=== PATIENT | female | born 1965 | race Caucasian/White ===

== ENCOUNTER 2017-10-15 21:32 | Emergency (ER) | payer MEDICAID ==
[~2017-10-15] VITALS: Ht 165.1 cm; Wt 142.8 kg
[~2017-10-15 21:32] MED LIST: ACYC400T PO; AZIT500T5 PO; FLUT16SP26 BOTHNARES; IBUP-1984 PO; LORA-835 PO; LORA1TAB PO; METH-360 PO; MIRT15TA3 PO; NAPR500T6 PO
[2017-10-15 21:39] VITALS: BP 150/87
[2017-10-15] MEDS ORDERED: proparacaine 0.5% ophthalmic drops 15ml RIGHTEYE ONE (22:45)
== END 2017-10-15 23:30 | disposition home or self-care (01) ==
LOC: ER 21:33
DX: H10.11 Acute atopic conjunctivitis, right eye (principal); I25.10 Atherosclerotic heart disease of native coronary artery without angina pectoris; G62.9 Polyneuropathy, unspecified; Z86.73 Personal history of transient ischemic attack (TIA), and cerebral infarction without residual deficits; Z88.0 Allergy status to penicillin; Z88.6 Allergy status to analgesic agent
CPT/HCPCS: 99282

== ENCOUNTER 2017-12-12 20:23 | Emergency (ER) | payer MEDICAID ==
[~2017-12-12] VITALS: Ht 165.1 cm; Wt 143.0 kg
[2017-12-12 21:18] LABS: CLARITY,URINE CLOUDY (Clear); COLOR,URINE YELLOW (Yellow); GLUCOSE, URINE NEGATIVE (Neg); KETONES,URINE TRACE mg/dl (Neg); LEUKOCYTE ESTERASE ,URINE NEGATIVE (Neg); NITRITES, URINE NEGATIVE (Neg); OCCULT BLOOD,URINE LARGE (Neg); PROTEIN,URINE TRACE mg/dl (Neg); UROBILINOGEN,URINE 0.2 E.U/dL (0.2-1.0)
[2017-12-12 21:19] LABS: UA COLLECTION TYPE CLN CATCH MIDSTREAM
[2017-12-12 21:30] LABS: BACTERIA,URINE 1+ /HPF (Neg); CAL OXALATE CRYSTALS 2+ /HPF (NEGATIVE); HYALINE CASTS 0-3 /LPF (NEGATIVE); MUCUS STRANDS MODERATE /LPF (Neg); SQUAMOUS EPITHELIAL CELL,UR MANY /LPF (FEW)
[2017-12-12 21:32] LABS: RBC,URINE 50-100 /HPF (0-2)
[2017-12-12 23:19] VITALS: BP 177/112
== END 2017-12-12 23:29 | disposition home or self-care (01) ==
LOC: ER 20:24
DX: G89.29 Other chronic pain (principal); M54.9 Dorsalgia, unspecified; I25.10 Atherosclerotic heart disease of native coronary artery without angina pectoris; Z86.73 Personal history of transient ischemic attack (TIA), and cerebral infarction without residual deficits; Z90.49 Acquired absence of other specified parts of digestive tract; Z90.710 Acquired absence of both cervix and uterus; Z98.890 Other specified postprocedural states; Z88.0 Allergy status to penicillin; Z88.6 Allergy status to analgesic agent; Z79.899 Other long term (current) drug therapy; Z60.2 Problems related to living alone; Z56.0 Unemployment, unspecified
CPT/HCPCS: 81001; 99283

== ENCOUNTER 2018-01-29 09:40 | Day surgery (SDC) | payer MEDICAID ==
[2018-01-29] MEDS ORDERED: LIDOcaine 2% 5ml jelly ONE (10:39)
[2018-01-29] MEDS ORDERED: HYDR-565 PO (11:09)
[2018-01-29] MEDS ORDERED: ASPI-1265 PO (11:10)
== END 2018-01-29 12:11 | disposition home or self-care (01) ==
LOC: WOUND CARE 09:40
PROVIDERS: ATTEND Surgery
DX: L97.212 Non-pressure chronic ulcer of right calf with fat layer exposed (principal); I25.10 Atherosclerotic heart disease of native coronary artery without angina pectoris; Z90.710 Acquired absence of both cervix and uterus; Z90.49 Acquired absence of other specified parts of digestive tract; Z79.899 Other long term (current) drug therapy; Z86.73 Personal history of transient ischemic attack (TIA), and cerebral infarction without residual deficits
CPT/HCPCS: 97597; A6021; A6206; A6446

== ENCOUNTER 2018-02-04 19:54 | Emergency (ER) | payer MEDICAID ==
[~2018-02-04] VITALS: Ht 165.1 cm; Wt 144.5 kg
[~2018-02-04 19:54] MED LIST changes: +ASPI-1265 PO; -AZIT500T5 PO; -FLUT16SP26 BOTHNARES; +HYDR-565 PO; -IBUP-1984 PO; -LORA-835 PO; -LORA1TAB PO; -MIRT15TA3 PO
[2018-02-04 22:31] LABS: BASOPHILS # (AUTO) 0.1 X10'3 (0-0.2); EOSINOPHILS # (AUTO) 0.1 X10'3 (0-0.9); EOSINOPHILS % (AUTO) 1.5 % (0-6); HEMATOCRIT 35.8 % (35.0-45.0); HEMOGLOBIN 11.9 g/dl (12.0-16.0); LYMPHOCYTES % (AUTO) 24.8 % (21-51); MEAN CORPUSCULAR HEMOGLOBIN 32.5 PG (27.0-31.0); MEAN CORPUSCULAR HGB CONC 33.1 % (33.0-36.5); MEAN CORPUSCULAR VOLUME 98.3 FL (78-98); MEAN PLATELET VOLUME 7.9 FL (7.4-10.4); MONOCYTES # (AUTO) 0.6 X10'3 (0-0.9); MONOCYTES % (AUTO) 7.9 % (2-12); NEUTROPHILS # (AUTO) 5.2 X10'3 (1.8-7.7); NEUTROPHILS % (AUTO) 64.8 % (42-75); PLATELET COUNT 281 X10'3 (140-440); RED BLOOD COUNT 3.65 X10'6 (4.20-5.60); RED CELL DISTRIBUTION WIDTH 16.3 % (11.5-14.5)
[2018-02-04 22:42] LABS: PARTIAL THROMBOPLASTIN TIME 22 SECONDS (22-32); PROTHROMBIN TIME 10.3 SECONDS (9.0-12.0)
[2018-02-04 22:56] LABS: ALANINE AMINOTRANSFERASE 26 U/L (12-78); ALBUMIN 3.3 G/DL (3.4-5.0); ALBUMIN/GLOBULIN RATIO 0.8 (1.1-1.5); ALKALINE PHOSPHATASE 136 IU/L (46-116); ANION GAP 9 (8-16); ASPARTATE AMINO TRANSFERASE 28 U/L (10-37); BILIRUBIN,TOTAL 0.2 MG/DL (0.1-1.0); BLOOD UREA NITROGEN 18 MG/DL (7-18); BUN/CREATININE RATIO 22.8 (6.6-38.0); CALCIUM 8.9 MG/DL (8.5-10.1); CHLORIDE 104 MMOL/L (99-107); CREATININE 0.79 MG/DL (0.40-0.90); GLUCOSE 97 MG/DL (70-104); POTASSIUM 3.7 MMOL/L (3.5-5.1); SODIUM 139 MMOL/L (135-145); TOTAL CARBON DIOXIDE 25.6 MMOL/L (24-32); TOTAL PROTEIN 7.5 G/DL (6.4-8.2); eGFR 76 ML/MIN
[2018-02-04 23:13] LABS: CLARITY,URINE Clear (Clear); COLOR,URINE Yellow (Yellow); GLUCOSE, URINE Negative (Neg); KETONES,URINE Negative (Neg); LEUKOCYTE ESTERASE ,URINE Negative (Neg); NITRITES, URINE Negative (Neg); OCCULT BLOOD,URINE Negative (Neg); PROTEIN,URINE Negative (Neg); UROBILINOGEN,URINE 0.2 E.U/dL (0.2-1.0)
[2018-02-04 23:17] LABS: UA COLLECTION TYPE STRAIGHT CATH
[2018-02-04] MEDS ORDERED: ibuprofen tablet 400 MG TABLET PO ONE (23:45)
[2018-02-04 23:57] VITALS: BP 140/85
== END 2018-02-04 23:59 | disposition home or self-care (01) ==
LOC: ER 19:55
DX: M54.5 Low back pain (principal); K62.5 Hemorrhage of anus and rectum; I25.10 Atherosclerotic heart disease of native coronary artery without angina pectoris; G89.29 Other chronic pain; G62.9 Polyneuropathy, unspecified; Z90.49 Acquired absence of other specified parts of digestive tract; Z90.710 Acquired absence of both cervix and uterus; Z98.890 Other specified postprocedural states; Z56.0 Unemployment, unspecified; Z88.0 Allergy status to penicillin; Z88.5 Allergy status to narcotic agent; Z79.82 Long term (current) use of aspirin; Z79.899 Other long term (current) drug therapy
CPT/HCPCS: 36415; 80053; 81003; 85025; 85610; 85730; 99284

== ENCOUNTER 2018-02-07 08:24 | Day surgery (SDC) | payer MEDICAID ==
[2018-02-07] MEDS ORDERED: LIDOcaine 2% 5ml jelly ONE (09:33)
== END 2018-02-07 10:33 | disposition home or self-care (01) ==
LOC: WOUND CARE 08:24
PROVIDERS: ATTEND Surgery
DX: L97.212 Non-pressure chronic ulcer of right calf with fat layer exposed (principal); I25.10 Atherosclerotic heart disease of native coronary artery without angina pectoris; Z90.710 Acquired absence of both cervix and uterus; Z90.49 Acquired absence of other specified parts of digestive tract; Z79.899 Other long term (current) drug therapy; Z86.73 Personal history of transient ischemic attack (TIA), and cerebral infarction without residual deficits
CPT/HCPCS: 15271; A6212; A6223; Q4131; A6250

== ENCOUNTER 2018-02-14 10:12 | Outpatient (CLI) | payer MEDICAID ==
[2018-02-14] MEDS ORDERED: LIDOcaine 2% 5ml jelly ONE (11:25)
== END 2018-02-14 11:53 | disposition home or self-care (01) ==
LOC: WOUND CARE 10:12 → EDSTATUS 10:30 → WOUND CARE 11:53
PROVIDERS: ATTEND Surgery
DX: L97.212 Non-pressure chronic ulcer of right calf with fat layer exposed (principal); Z90.710 Acquired absence of both cervix and uterus; Z90.49 Acquired absence of other specified parts of digestive tract; Z79.899 Other long term (current) drug therapy; Z86.73 Personal history of transient ischemic attack (TIA), and cerebral infarction without residual deficits
CPT/HCPCS: 99215; A6021; A6206

== ENCOUNTER 2018-02-23 09:51 | Outpatient (CLI) | payer MEDICAID | END 2018-02-23 10:36 | disposition home or self-care (01) | LOC: WOUND CARE 09:51 → EDSTATUS 11:00 | PROVIDERS: ATTEND Surgery | DX: L97.212 Non-pressure chronic ulcer of right calf with fat layer exposed (principal); Z90.710 Acquired absence of both cervix and uterus; Z90.49 Acquired absence of other specified parts of digestive tract; Z79.899 Other long term (current) drug therapy; Z86.73 Personal history of transient ischemic attack (TIA), and cerebral infarction without residual deficits | CPT/HCPCS: 99211; A6021; A6223 ==

== ENCOUNTER 2018-03-02 10:41 | Day surgery (SDC) | payer MEDICAID ==
[2018-03-02] MEDS ORDERED: LIDOcaine 2% 5ml jelly ONE (11:31)
== END 2018-03-02 12:14 | disposition home or self-care (01) ==
LOC: WOUND CARE 10:41
PROVIDERS: ATTEND Surgery
DX: L97.212 Non-pressure chronic ulcer of right calf with fat layer exposed (principal); Z90.710 Acquired absence of both cervix and uterus; Z90.49 Acquired absence of other specified parts of digestive tract; Z79.899 Other long term (current) drug therapy; Z86.73 Personal history of transient ischemic attack (TIA), and cerebral infarction without residual deficits
CPT/HCPCS: 15271; A6209; A6222; Q4131; A6250

== ENCOUNTER 2018-03-14 10:07 | Day surgery (SDC) | payer MEDICAID ==
[2018-03-14] MEDS ORDERED: LIDOcaine 2% 5ml jelly ONE (10:52)
[2018-03-14] MEDS ORDERED: OXYC10TA47 PO (14:08)
== END 2018-03-14 12:01 | disposition home or self-care (01) ==
LOC: WOUND CARE 10:07
PROVIDERS: ATTEND Surgery
DX: L97.212 Non-pressure chronic ulcer of right calf with fat layer exposed (principal); Z90.710 Acquired absence of both cervix and uterus; Z90.49 Acquired absence of other specified parts of digestive tract; Z79.899 Other long term (current) drug therapy; Z86.73 Personal history of transient ischemic attack (TIA), and cerebral infarction without residual deficits
CPT/HCPCS: 97597; A6213; A6223

== ENCOUNTER 2018-03-27 09:23 | Outpatient (CLI) | payer MEDICAID ==
[~2018-03-27 09:23] MED LIST changes: -HYDR-565 PO; +OXYC10TA47 PO
== END 2018-03-27 10:00 | disposition home or self-care (01) ==
LOC: WOUND CARE 09:23 → EDSTATUS 10:00 → WOUND CARE 10:00
PROVIDERS: ATTEND Surgery
DX: L97.212 Non-pressure chronic ulcer of right calf with fat layer exposed (principal); Z90.710 Acquired absence of both cervix and uterus; Z90.49 Acquired absence of other specified parts of digestive tract; Z79.899 Other long term (current) drug therapy; Z86.73 Personal history of transient ischemic attack (TIA), and cerebral infarction without residual deficits
CPT/HCPCS: 99211; A6021; A6222; A6255

== ENCOUNTER 2018-04-03 09:55 | Day surgery (SDC) | payer MEDICAID ==
[2018-04-03] MEDS ORDERED: LIDOcaine 2% 5ml jelly ONE (10:19)
== END 2018-04-03 10:50 | disposition home or self-care (01) ==
LOC: WOUND CARE 09:55
PROVIDERS: ATTEND Surgery
DX: L97.212 Non-pressure chronic ulcer of right calf with fat layer exposed (principal); G62.9 Polyneuropathy, unspecified; I25.10 Atherosclerotic heart disease of native coronary artery without angina pectoris; Z90.710 Acquired absence of both cervix and uterus; Z90.49 Acquired absence of other specified parts of digestive tract; Z79.899 Other long term (current) drug therapy; Z86.73 Personal history of transient ischemic attack (TIA), and cerebral infarction without residual deficits; Z79.82 Long term (current) use of aspirin
CPT/HCPCS: 97597; A6021; A6223

== ENCOUNTER 2018-05-08 09:59 | Day surgery (SDC) | payer MEDICAID | END 2018-05-08 11:22 | disposition home or self-care (01) | LOC: WOUND CARE 09:59 | PROVIDERS: ATTEND Surgery | DX: L97.212 Non-pressure chronic ulcer of right calf with fat layer exposed (principal); G62.9 Polyneuropathy, unspecified; I25.10 Atherosclerotic heart disease of native coronary artery without angina pectoris; Z90.710 Acquired absence of both cervix and uterus; Z90.49 Acquired absence of other specified parts of digestive tract; Z79.899 Other long term (current) drug therapy; Z86.73 Personal history of transient ischemic attack (TIA), and cerebral infarction without residual deficits; Z79.82 Long term (current) use of aspirin | CPT/HCPCS: 17250; A6021; A6255 ==

== ENCOUNTER 2018-05-17 13:09 | Emergency (ER) | payer MEDICAID ==
[~2018-05-17] VITALS: Ht 172.7 cm; Wt 136.0 kg
[2018-05-17 13:20] VITALS: BP 153/100
[2018-05-17] MEDS ORDERED: PERM60CR19 TP (13:52)
== END 2018-05-17 14:00 | disposition home or self-care (01) ==
LOC: ER 13:09
DX: T14.8XXA Other injury of unspecified body region, initial encounter (principal); I25.10 Atherosclerotic heart disease of native coronary artery without angina pectoris; G89.29 Other chronic pain; Z86.69 Personal history of other diseases of the nervous system and sense organs; Z86.73 Personal history of transient ischemic attack (TIA), and cerebral infarction without residual deficits; Z90.710 Acquired absence of both cervix and uterus; Z90.49 Acquired absence of other specified parts of digestive tract; Z98.890 Other specified postprocedural states; Z60.2 Problems related to living alone; Z59.0 Homelessness; Z56.0 Unemployment, unspecified; Z88.0 Allergy status to penicillin; Z88.5 Allergy status to narcotic agent; Z88.1 Allergy status to other antibiotic agents; Z88.8 Allergy status to other drugs, medicaments and biological substances; Z79.82 Long term (current) use of aspirin; Z79.899 Other long term (current) drug therapy; W57.XXXA Bitten or stung by nonvenomous insect and other nonvenomous arthropods, initial encounter; Y93.89 Activity, other specified; Y92.89 Other specified places as the place of occurrence of the external cause; Y99.8 Other external cause status
CPT/HCPCS: 99282

== ENCOUNTER 2018-05-25 09:46 | Outpatient (CLI) | payer MEDICAID ==
[~2018-05-25 09:46] MED LIST changes: +PERM60CR19 TP
== END 2018-05-25 11:22 | disposition home or self-care (01) ==
LOC: WOUND CARE 09:46 → EDSTATUS 10:00 → WOUND CARE 11:22
PROVIDERS: ATTEND Surgery
DX: L97.212 Non-pressure chronic ulcer of right calf with fat layer exposed (principal); G62.9 Polyneuropathy, unspecified; I25.10 Atherosclerotic heart disease of native coronary artery without angina pectoris; Z90.710 Acquired absence of both cervix and uterus; Z90.49 Acquired absence of other specified parts of digestive tract; Z79.899 Other long term (current) drug therapy; Z86.73 Personal history of transient ischemic attack (TIA), and cerebral infarction without residual deficits; Z79.82 Long term (current) use of aspirin
CPT/HCPCS: 99215

== ENCOUNTER 2018-09-25 00:27 | Emergency (ER) | payer MEDICAID ==
[~2018-09-25] VITALS: Ht 167.6 cm; Wt 145.0 kg
[~2018-09-25 00:27] MED LIST changes: -PERM60CR19 TP
[2018-09-25 00:29] VITALS: BP 175/116
[2018-09-25] MEDS ORDERED: acetaminophen 325mg tablet PO ONE (00:45)
[2018-09-25] MEDS ORDERED: neomy sulf/polymyx B sulf/HC 10ml otic suspension RIGHT EAR ONE (00:45)
== END 2018-09-25 01:12 | disposition home or self-care (01) ==
LOC: ER 00:27
DX: H60.91 Unspecified otitis externa, right ear (principal); I25.10 Atherosclerotic heart disease of native coronary artery without angina pectoris; G89.29 Other chronic pain; Z86.73 Personal history of transient ischemic attack (TIA), and cerebral infarction without residual deficits; Z86.69 Personal history of other diseases of the nervous system and sense organs; Z90.49 Acquired absence of other specified parts of digestive tract; Z90.710 Acquired absence of both cervix and uterus; Z98.890 Other specified postprocedural states; Z60.2 Problems related to living alone; Z56.0 Unemployment, unspecified; Z88.2 Allergy status to sulfonamides; Z88.1 Allergy status to other antibiotic agents; Z88.8 Allergy status to other drugs, medicaments and biological substances; Z79.82 Long term (current) use of aspirin; Z79.899 Other long term (current) drug therapy
CPT/HCPCS: 99282

== ENCOUNTER 2019-02-25 01:05 | Emergency (ER) | payer MEDICAID ==
[~2019-02-25] VITALS: Ht 165.1 cm; Wt 160.0 kg
[2019-02-25 01:21] VITALS: BP 176/105
[2019-02-25] MEDS ORDERED: acetaminophen 325mg tablet PO ONE (01:35)
[2019-02-25] MEDS ORDERED: CEPH-572 PO (01:41)
== END 2019-02-25 01:59 | disposition home or self-care (01) ==
LOC: ER 01:06
DX: L03.011 Cellulitis of right finger (principal); G62.9 Polyneuropathy, unspecified; I25.10 Atherosclerotic heart disease of native coronary artery without angina pectoris; G89.29 Other chronic pain; F41.9 Anxiety disorder, unspecified; F32.9 Major depressive disorder, single episode, unspecified; Z85.43 Personal history of malignant neoplasm of ovary; Z87.442 Personal history of urinary calculi; Z86.73 Personal history of transient ischemic attack (TIA), and cerebral infarction without residual deficits; Z86.69 Personal history of other diseases of the nervous system and sense organs; Z98.890 Other specified postprocedural states; Z90.49 Acquired absence of other specified parts of digestive tract; Z90.710 Acquired absence of both cervix and uterus; Z90.89 Acquired absence of other organs; Z60.2 Problems related to living alone; Z56.0 Unemployment, unspecified; Z88.0 Allergy status to penicillin; Z88.1 Allergy status to other antibiotic agents; Z88.6 Allergy status to analgesic agent; Z79.82 Long term (current) use of aspirin; Z79.899 Other long term (current) drug therapy
CPT/HCPCS: 99283

== ENCOUNTER 2019-03-06 17:27 | Emergency (ER) | payer MEDICAID ==
[~2019-03-06] VITALS: Ht 167.6 cm; Wt 140.0 kg
[2019-03-06 17:30] VITALS: BP 180/89
--- NOTE | 2019-03-06 17:38 | NUR ---
PT STATES SHE WAS JUST HERE LAST WEEK AND HAD AN EKG WELL ONE AT [facility] AND DOESNT FEEL SHE NEEDS ANOTHER ONE UNTIL SHE SPEAKS TO THE MD. VSS. DENIES CP AT THIS TIME. CHARGE NOTIFIED. PT ADVISED IF SHE FEELS WORSE TO LET REGISTRATION AND CONCRETE BOOM PUMP OPERATOR KNOW.
== END 2019-03-06 18:27 | disposition left against medical advice (07) ==
LOC: EEVIPCON 17:27 → ER 17:27
DX: R12 Heartburn (principal); R11.10 Vomiting, unspecified; Z53.21 Procedure and treatment not carried out due to patient leaving prior to being seen by health care provider

== ENCOUNTER 2019-04-03 10:48 | Emergency (ER) | payer MEDICAID ==
[~2019-04-03] VITALS: Ht 167.6 cm; Wt 143.5 kg
[2019-04-03 10:55] VITALS: BP 164/90
[2019-04-03] MEDS ORDERED: ketorolac tromethamine 15mg/ml inj. IM ONE (11:55)
[2019-04-03 12:32] LABS: CLARITY,URINE SLIGHTLY CLOUDY (Clear); COLOR,URINE YELLOW (Yellow); GLUCOSE, URINE NEGATIVE (Neg); KETONES,URINE NEGATIVE (Neg); LEUKOCYTE ESTERASE ,URINE SMALL (Neg); NITRITES, URINE NEGATIVE (Neg); OCCULT BLOOD,URINE NEGATIVE (Neg); PROTEIN,URINE NEGATIVE (Neg); UROBILINOGEN,URINE 0.2 E.U/dL (0.2-1.0)
[2019-04-03 12:33] LABS: UA COLLECTION TYPE CLN CATCH MIDSTREAM
[2019-04-03 12:40] LABS: SQUAMOUS EPITHELIAL CELL,UR MODERATE /LPF (FEW)
[2019-04-03 12:42] LABS: BACTERIA,URINE 1+ /HPF (Neg); RBC,URINE 0-2 /HPF (0-2); WBC CLUMPS,URINE FEW /HPF (NEGATIVE)
[2019-04-03] MEDS ORDERED: NITR-79 PO (12:47)
[2019-04-04] MEDS ORDERED: NITR100C6 PO (21:59)
== END 2019-04-03 12:58 | disposition home or self-care (01) ==
LOC: ER 10:49
DX: N39.0 Urinary tract infection, site not specified (principal); R32 Unspecified urinary incontinence; E66.01 Morbid (severe) obesity due to excess calories; I25.10 Atherosclerotic heart disease of native coronary artery without angina pectoris; E07.9 Disorder of thyroid, unspecified; G89.29 Other chronic pain; C56.9 Malignant neoplasm of unspecified ovary; C85.90 Non-Hodgkin lymphoma, unspecified, unspecified site; Z90.49 Acquired absence of other specified parts of digestive tract; Z90.710 Acquired absence of both cervix and uterus; Z98.890 Other specified postprocedural states; Z56.0 Unemployment, unspecified; Z88.0 Allergy status to penicillin; Z88.1 Allergy status to other antibiotic agents; Z87.442 Personal history of urinary calculi; Z86.73 Personal history of transient ischemic attack (TIA), and cerebral infarction without residual deficits; Z88.2 Allergy status to sulfonamides; Z88.6 Allergy status to analgesic agent; Z79.82 Long term (current) use of aspirin; Z79.899 Other long term (current) drug therapy
CPT/HCPCS: 74176; 81001; 87077; 87088; 87186; 99284

== ENCOUNTER 2019-04-04 17:55 | Inpatient (IN) | payer MEDICAID ==
[2019-04-04] VITALS (14 sets, daily range): BP systolic 135–182; BP diastolic 73–118
[~2019-04-04] VITALS: Ht 167.6 cm; Wt 146.8 kg
[~2019-04-04 17:55] MED LIST changes: +NITR-79 PO; +sod chloride 0.9% 10ml flush syringe IV ONE
--- NOTE | 2019-04-04 17:59 | NUR ---
Dr. Khan at bedside to leona pt.
--- NOTE | 2019-04-04 18:15 | NUR ---
RESPONDED TO STROKE ALERT BED 13, PT OUT TO CT SCAN
[2019-04-04 18:24] LABS: BASOPHILS % (AUTO) 0.6 % (0-1); EOSINOPHILS # (AUTO) 0.1 X10'3 (0-0.9); EOSINOPHILS % (AUTO) 1.1 % (0-6); HEMATOCRIT 41.1 % (35.0-45.0); LYMPHOCYTES # (AUTO) 1.8 X10'3 (1.1-4.8); LYMPHOCYTES % (AUTO) 21.5 % (21-51); MEAN CORPUSCULAR HEMOGLOBIN 32.4 PG (27.0-31.0); MEAN CORPUSCULAR HGB CONC 34.1 g/dL (33.0-36.5); MEAN PLATELET VOLUME 7.6 FL (7.4-10.4); MONOCYTES # (AUTO) 0.6 X10'3 (0-0.9); MONOCYTES % (AUTO) 7.8 % (2-12); NEUTROPHILS # (AUTO) 5.6 X10'3 (1.8-7.7); PLATELET COUNT 237 X10'3 (140-440); RED BLOOD COUNT 4.33 X10'6 (4.20-5.60); RED CELL DISTRIBUTION WIDTH 13.8 % (11.5-14.5); WHITE BLOOD COUNT 8.2 X10'3 (4.5-11.0)
--- NOTE | 2019-04-04 18:30 | NUR ---
PT WITH VERY INCONSISTANT EXAM, FORCING SPEECH WELL PUSHING AGAINIST MOVING LEFT LEG. SHE STATES NO FEELING IN LEFT ARM AND LEG, AND THEN REPORTS FEELS LIKE RUBBER. DOES NOT RESPOND TO PAINFUL STIMULI TO LEFT FOOT, DOES NOT LIFT OFF BED. STATES THIS STARTED AT 1700. DENIES THAT SHE HAD THESE SYMPTOMS ON 03/13/19 THAT WERE REPORTED AT [facility].
[2019-04-04 18:39] LABS: ALANINE AMINOTRANSFERASE 31 U/L (12-78); ALBUMIN 3.2 G/DL (3.4-5.0); ALBUMIN/GLOBULIN RATIO 0.7 (1.1-1.5); ALKALINE PHOSPHATASE 136 IU/L (46-116); ANION GAP 8 (8-16); ASPARTATE AMINO TRANSFERASE 15 U/L (10-37); BILIRUBIN,TOTAL 0.4 MG/DL (0.1-1.0); BLOOD UREA NITROGEN 8 MG/DL (7-18); BUN/CREATININE RATIO 8.6 (6.6-38.0); CALCIUM 8.6 MG/DL (8.5-10.1); CHLORIDE 106 MMOL/L (99-107); CREATININE 0.93 MG/DL (0.40-0.90); GLUCOSE 119 MG/DL (70-104); POTASSIUM 3.6 MMOL/L (3.5-5.1); SODIUM 142 MMOL/L (135-145); TOTAL CARBON DIOXIDE 27.8 MMOL/L (24-32); TOTAL PROTEIN 7.5 G/DL (6.4-8.2); eGFR 63 ML/MIN
[2019-04-04 18:40] LABS: PARTIAL THROMBOPLASTIN TIME 31 SECONDS (22-32)
--- NOTE | 2019-04-04 18:40 | NUR ---
RN ATTEMPTING TO START IVS, STROKE BOX AT BEDSIDE. \ TELEMEDICINE WITH SOC DR. JEROME HE EXPLAINS RISKS AND BENEFITS OF TPA, SHE AND HER SPOUSE VERBALIZE UNDERSTANDING, SHE REQUESTS TPA BE GIVEN. DR. HI AND DR. ANGELO HAVING DISCUSSION
--- NOTE | 2019-04-04 18:59 | NUR ---
TPA ADMINISTERED PER MD ORDER 9MG BOLUS, WITH 81MG OVER 1 HR. VS AND NEURO CHECKS Q 15 MIN.
[2019-04-04] MEDS ORDERED: iohexol 350MG/ML 100ml bottle IV ONE (19:09)
--- NOTE | 2019-04-04 19:40 | NUR ---
TO CT FOR CTA HEAD AND NECK, PT STABLE NO CHANGES. TPA INFUSING. WITH RN AND MONITOR ON PT.
[2019-04-04] MEDS ORDERED: oxyCODONE IR 5mg (immed. release) tablet PO PRN (20:00)
[2019-04-04] MEDS ORDERED: ondansetron/PF 4mg/2ml inj IV PRN (20:00)
[2019-04-04] MEDS ORDERED: potassium CL 10mEq/100ml bag 100 ML IV PRN ×2 (20:00)
[2019-04-04] MEDS: K, MAG and/or Phos replacement - Verify level? MC SCH (20:00)
[2019-04-04] MEDS ORDERED: nitrofurantoin macrocrystal 100mg capsule PO SCH (20:00)
[2019-04-04] MEDS ORDERED: acetaminophen 325mg tablet PO PRN (20:00)
[2019-04-04] MEDS ORDERED: magnesium hydroxide 30ml (MOM) UD suspension PO PRN (20:00)
[2019-04-04] MEDS ORDERED: potassium Cl 20 mEq SR tablet PO PRN ×2 (20:00)
[2019-04-04] MEDS ORDERED: acyclovir 200 MG capsule PO SCH (20:00)
[2019-04-04] MEDS ORDERED: alteplase 100MG inj. 100 ML IV ONE (20:10)
[2019-04-04] MEDS ORDERED: NITR100C6 PO (21:59)
[2019-04-04 22:15] LABS: MAGNESIUM 1.9 MG/DL (1.5-2.4)
[2019-04-04] MEDS: nitrofuran/nitrofuran macrocrysal 100 MG capsule PO SCH (22:25)
[2019-04-04] MEDS: cyclobenzaprine 10mg tablet PO SCH (22:26)
--- NOTE | 2019-04-04 22:40 | NUR ---
RN Note -Pt using left arm to eat and and reposition self in bed. Pt also uses left leg when scooting up in bed and repositioning. numbness and "rubbery" feeling on neuro checks persist.
[2019-04-05] VITALS (29 sets, daily range): BP systolic 114–156; BP diastolic 55–95
[2019-04-05 05:22] LABS: BASOPHILS % (AUTO) 0.4 % (0-1); EOSINOPHILS # (AUTO) 0.1 X10'3 (0-0.9); EOSINOPHILS % (AUTO) 1.7 % (0-6); HEMATOCRIT 39.2 % (35.0-45.0); HEMOGLOBIN 13.3 g/dl (12.0-16.0); LYMPHOCYTES # (AUTO) 2.2 X10'3 (1.1-4.8); LYMPHOCYTES % (AUTO) 27.7 % (21-51); MEAN CORPUSCULAR HEMOGLOBIN 32.2 PG (27.0-31.0); MEAN CORPUSCULAR HGB CONC 33.9 g/dL (33.0-36.5); MEAN CORPUSCULAR VOLUME 94.8 FL (78-98); MEAN PLATELET VOLUME 8.1 FL (7.4-10.4); MONOCYTES # (AUTO) 0.6 X10'3 (0-0.9); MONOCYTES % (AUTO) 6.9 % (2-12); NEUTROPHILS # (AUTO) 5.1 X10'3 (1.8-7.7); NEUTROPHILS % (AUTO) 63.3 % (42-75); PLATELET COUNT 221 X10'3 (140-440); RED BLOOD COUNT 4.14 X10'6 (4.20-5.60); RED CELL DISTRIBUTION WIDTH 13.9 % (11.5-14.5)
[2019-04-05 05:38] LABS: ALANINE AMINOTRANSFERASE 26 U/L (12-78); ALBUMIN 2.8 G/DL (3.4-5.0); ALBUMIN/GLOBULIN RATIO 0.7 (1.1-1.5); ALKALINE PHOSPHATASE 120 IU/L (46-116); ANION GAP 8 (8-16); ASPARTATE AMINO TRANSFERASE 18 U/L (10-37); BILIRUBIN,TOTAL 0.4 MG/DL (0.1-1.0); BLOOD UREA NITROGEN 15 MG/DL (7-18); CALCIUM 8.3 MG/DL (8.5-10.1); CHLORIDE 107 MMOL/L (99-107); CREATININE 0.79 MG/DL (0.40-0.90); GLUCOSE 107 MG/DL (70-104); MAGNESIUM 1.9 MG/DL (1.5-2.4); POTASSIUM 3.5 MMOL/L (3.5-5.1); SODIUM 142 MMOL/L (135-145); TOTAL CARBON DIOXIDE 27.1 MMOL/L (24-32); TOTAL PROTEIN 6.7 G/DL (6.4-8.2); eGFR 76 ML/MIN
--- NOTE | 2019-04-05 06:00 | NUR ---
Patient in room ICU 2040. I have received report from lieutenant shift supervisor and had the opportunity to ask questions and assume patient care.
[2019-04-05] MEDS ORDERED: naproxen 500mg tablet PO SCH ×2 (07:30→20:00)
[2019-04-05] MEDS: cyclobenzaprine 10mg tablet PO SCH ×2 (07:56→20:41)
[2019-04-05] MEDS: K, MAG and/or Phos replacement - Verify level? MC SCH (08:00)
[2019-04-05] MEDS ORDERED: aspirin 81mg tab.chew PO SCH (08:00)
[2019-04-05] MEDS: nitrofuran/nitrofuran macrocrysal 100 MG capsule PO SCH (09:08)
[2019-04-05] MEDS ORDERED: LORazepam 2 mg/ml vial IV ONE (13:10)
--- NOTE | 2019-04-05 13:15 | NUR ---
Pt out of floor for MRI about 1300. Accompanied with RN (Tadeo Peraza)
[2019-04-05] MEDS: acetaminophen 325mg tablet PO PRN (15:17)
--- NOTE | 2019-04-05 16:05 | NUR ---
To ICU to see pt, post tPA. Discussed MRI findings and reviewed risk factors and prevention of stroke. Pt states "You need to read my chart, you have not read my chart or you would not be discussing my situation in front of anyone" Her is at the bedside, she gave permission yesterday for him to be present and share information with him. He was in the room throughout ER stay, and participated in neuro consult. I have assured her we will respect her wishes and I will pass this on to the rest of the care team.
--- NOTE | 2019-04-05 20:30 | NUR ---
RN Note -Pt stated that she wanted to leave AMA after her went into her room and closed curtain. Pt was acting markedly different from yesterday. Expressed concerns to charge nurse. Charge nurse spoke with pt privately and asked pt if she feels safe at home. Pt stated that she does not feel safe at home but was vague in regard to why. veterans services specialist consult entered by charge nurse.
[2019-04-06] VITALS (11 sets, daily range): BP systolic 101–148; BP diastolic 56–85
[2019-04-06] MEDS: acetaminophen 325mg tablet PO PRN (01:51)
[2019-04-06] MEDS: nitrofuran/nitrofuran macrocrysal 100 MG capsule PO SCH ×2 (01:52→09:15)
[2019-04-06] MEDS ORDERED: ibuprofen tablet 400 MG TABLET PO PRN (04:10)
[2019-04-06] MEDS ORDERED: ibuprofen 200mg tablet PO PRN (04:15)
--- NOTE | 2019-04-06 06:53 | NUR ---
Patient in room ICU 2040. I have received report from DENIA Pate and had the opportunity to ask questions and assume patient care.
[2019-04-06] MEDS: K, MAG and/or Phos replacement - Verify level? MC SCH (08:00)
[2019-04-06] MEDS: cyclobenzaprine 10mg tablet PO SCH (08:00)
[2019-04-06] MEDS ORDERED: aspirin 81mg tab.chew PO SCH (08:00)
--- NOTE | 2019-04-06 13:01 | NUR ---
Pt unhappy with care and threatening to leave AMA. Dr. Murillo agreed to d/c pt. Pt wheeled down to lobby by PCT with all belongings, accompanied by . Stable for discharge. Addendum: 04/06/19 at 1302 by Viki Glynn RN PIV x2 and monitor removed
== END 2019-04-06 12:50 | disposition home or self-care (01) | DRG 45 ==
LOC: ER 17:57 → ICU 2S 21:44
PROVIDERS: ADMIT Internal Medicine Critical Care Medicine; ATTEND Internal Medicine Critical Care Medicine
DX: I63.9 Cerebral infarction, unspecified (principal); I10 Essential (primary) hypertension; Z82.49 Family history of ischemic heart disease and other diseases of the circulatory system; Z88.1 Allergy status to other antibiotic agents; Z88.0 Allergy status to penicillin; Z88.2 Allergy status to sulfonamides; Z88.8 Allergy status to other drugs, medicaments and biological substances; Z90.49 Acquired absence of other specified parts of digestive tract; Z90.710 Acquired absence of both cervix and uterus; Z85.43 Personal history of malignant neoplasm of ovary; Z87.442 Personal history of urinary calculi
CPT/HCPCS: 36415; 70450; 70496; 70498; 70544; 70551; 71045; 74176; 80053; 82948; 83735; 84100; 85025; 85610; 85730; 86885; 86900; 86901; 93005; 99285; G0378; J2060; J2997; Q9967

== ENCOUNTER 2019-05-03 19:47 | Inpatient (IN) | payer MEDICAID ==
[~2019-05-03] VITALS: Ht 167.6 cm; Wt 144.0 kg
[~2019-05-03 19:47] MED LIST changes: -ACYC400T PO; -NITR-79 PO; +NITR100C6 PO; -OXYC10TA47 PO; -sod chloride 0.9% 10ml flush syringe IV ONE
[2019-05-03 21:30] LABS: PARTIAL THROMBOPLASTIN TIME 30 SECONDS (22-32)
[2019-05-03 21:31] LABS: BASOPHILS # (AUTO) 0.1 X10'3 (0-0.2); BASOPHILS % (AUTO) 0.7 % (0-1); EOSINOPHILS # (AUTO) 0.1 X10'3 (0-0.9); EOSINOPHILS % (AUTO) 1.3 % (0-6); HEMATOCRIT 40.9 % (35.0-45.0); HEMOGLOBIN 13.8 g/dl (12.0-16.0); LYMPHOCYTES # (AUTO) 2.1 X10'3 (1.1-4.8); LYMPHOCYTES % (AUTO) 24.3 % (21-51); MEAN CORPUSCULAR HEMOGLOBIN 32.3 PG (27.0-31.0); MEAN CORPUSCULAR HGB CONC 33.7 g/dL (33.0-36.5); MEAN CORPUSCULAR VOLUME 95.8 FL (78-98); MEAN PLATELET VOLUME 8.2 FL (7.4-10.4); MONOCYTES # (AUTO) 0.7 X10'3 (0-0.9); MONOCYTES % (AUTO) 7.7 % (2-12); NEUTROPHILS # (AUTO) 5.7 X10'3 (1.8-7.7); PLATELET COUNT 236 X10'3 (140-440); RED BLOOD COUNT 4.27 X10'6 (4.20-5.60); RED CELL DISTRIBUTION WIDTH 13.4 % (11.5-14.5); WHITE BLOOD COUNT 8.6 X10'3 (4.5-11.0)
[2019-05-03 21:41] LABS: ALANINE AMINOTRANSFERASE 32 U/L (12-78); ALBUMIN 3.3 G/DL (3.4-5.0); ALBUMIN/GLOBULIN RATIO 0.8 (1.1-1.5); ALKALINE PHOSPHATASE 127 IU/L (46-116); ANION GAP 8 (8-16); ASPARTATE AMINO TRANSFERASE 24 U/L (10-37); BILIRUBIN,TOTAL 0.3 MG/DL (0.1-1.0); BLOOD UREA NITROGEN 11 MG/DL (7-18); BUN/CREATININE RATIO 11.7 (6.6-38.0); CALCIUM 9.1 MG/DL (8.5-10.1); CHLORIDE 106 MMOL/L (99-107); CREATININE 0.94 MG/DL (0.40-0.90); GLUCOSE 100 MG/DL (70-104); POTASSIUM 3.9 MMOL/L (3.5-5.1); SODIUM 142 MMOL/L (135-145); TOTAL CARBON DIOXIDE 28.5 MMOL/L (24-32); TOTAL PROTEIN 7.6 G/DL (6.4-8.2); eGFR 62 ML/MIN
[2019-05-03] MEDS ORDERED: aspirin 325mg tablet PO ONE (23:30)
[2019-05-03] MEDS ORDERED: fentaNYL/PF 50MCG/1 ML 2ML syringe IV ONE (23:30)
[2019-05-03] MEDS ORDERED: magnesium hydroxide 30ml (MOM) UD suspension PO PRN (23:55)
[2019-05-03] MEDS ORDERED: morphine 2 MG/ML inj. syringe IV PRN (23:55)
[2019-05-03] MEDS ORDERED: mag hydrox/Alum hydrox/simeth 30ml oral suspension PO PRN (23:55)
[2019-05-03] MEDS ORDERED: ondansetron/PF 4mg/2ml inj IV PRN (23:55)
[2019-05-04] VITALS (16 sets, daily range): BP systolic 121–183; BP diastolic 66–111
[2019-05-04] MEDS ORDERED: aminophylline 250mg/10ml inj. IV PRN (00:15)
[2019-05-04] MEDS ORDERED: metoprolol tartrate 1mg/ml inj IV PRN (00:15)
[2019-05-04] MEDS ORDERED: regadenoson 0.4mg/5ml syringe IV ONE (00:15)
[2019-05-04] MEDS: furosemide 40mg/4ml inj IV SCH ×3 (01:27→21:49)
[2019-05-04 02:52] LABS: BASOPHILS # (AUTO) 0.1 X10'3 (0-0.2); EOSINOPHILS # (AUTO) 0.1 X10'3 (0-0.9); EOSINOPHILS % (AUTO) 1.1 % (0-6); HEMOGLOBIN 13.9 g/dl (12.0-16.0); LYMPHOCYTES # (AUTO) 2.2 X10'3 (1.1-4.8); LYMPHOCYTES % (AUTO) 24.8 % (21-51); MEAN CORPUSCULAR HEMOGLOBIN 32.6 PG (27.0-31.0); MEAN CORPUSCULAR VOLUME 95.9 FL (78-98); MEAN PLATELET VOLUME 7.7 FL (7.4-10.4); MONOCYTES # (AUTO) 0.6 X10'3 (0-0.9); MONOCYTES % (AUTO) 7.5 % (2-12); NEUTROPHILS # (AUTO) 5.7 X10'3 (1.8-7.7); NEUTROPHILS % (AUTO) 65.6 % (42-75); PLATELET COUNT 239 X10'3 (140-440); RED BLOOD COUNT 4.27 X10'6 (4.20-5.60); RED CELL DISTRIBUTION WIDTH 13.5 % (11.5-14.5); WHITE BLOOD COUNT 8.7 X10'3 (4.5-11.0)
[2019-05-04 03:02] LABS: ALBUMIN 3.5 G/DL (3.4-5.0); ANION GAP 10 (8-16); BLOOD UREA NITROGEN 11 MG/DL (7-18); BUN/CREATININE RATIO 13.1 (6.6-38.0); CALCIUM 9.1 MG/DL (8.5-10.1); CHLORIDE 104 MMOL/L (99-107); CREATININE 0.84 MG/DL (0.40-0.90); GLUCOSE 112 MG/DL (70-104); POTASSIUM 3.7 MMOL/L (3.5-5.1); SODIUM 140 MMOL/L (135-145); TOTAL CARBON DIOXIDE 26.3 MMOL/L (24-32); eGFR 70 ML/MIN
[2019-05-04] MEDS: acetaminophen 325mg tablet PO PRN ×2 (03:39→11:43)
[2019-05-04] MEDS: morphine 2 MG/ML inj. syringe IV PRN ×3 (03:44→21:50)
[2019-05-04] MEDS ORDERED: cloNIDine 0.1 mg tablet PO PRN (04:10)
--- NOTE | 2019-05-04 06:00 | NUR ---
Problems reprioritized. Patient report given, questions answered & plan of care reviewed with DENIA Patino.
--- NOTE | 2019-05-04 07:00 | NUR ---
PATIENT C/O CHEST PAIN, SIMILAR TO THE PAIN THAT BROUGHT HER TO THE ER. STAT EKG PERFORMED PER PROTOCOL. ATTEMPTED TO BRING EKG TO HOSPITALIST OFFICE, NO MD Available at this time, DR. PARKS HAD ALREADY LEFT. ATTEMPTED TO BRING EKG TO ER, MD NOT AVAILABLE THERE EITHER - SCRIBE INFORMED HE WENT ON BREAK. EKG APPEARS UNCHANGED FROM PREVIOUS EKG DONE IN ER UPON PATIENT ARRIVAL. WILL CONTINUE TO MONITOR.
[2019-05-04] MEDS: nitroGLYCERIN 0.4mg SUBLingual tab SL PRN ×3 (07:39→07:55)
--- NOTE | 2019-05-04 07:45 | NUR ---
PATIENT CO CHEST PRESSURE, RATES PAIN 9 OUT OF PAIN SCALE 1-10. DESCRIBES PAIN "PRESSURE." EKG TAKEN , NO SIGNIFICANT CHANGES NOTED. NTG SL GIVEN X S 3. PATIENT STATES CHEST PAIN DECREASED TO 3 ON PAIN SCALE.VS STABLE SR. CALL LIGHT IN REACH. Addendum: 05/04/19 at 1439 by Nena Jackson RN Amended: Links added.
[2019-05-04] MEDS ORDERED: lisinopril 20mg tablet PO SCH (08:10)
--- NOTE | 2019-05-04 08:25 | NUR ---
LISINOPRIL MEDICATION TIME CHANGED TO DAILY @ HS. WILL CONTINUE TO MONITOR
[2019-05-04] MEDS: metoprolol tartrate 12.5mg (1/2 tablet) PO SCH ×2 (09:05→21:02)
[2019-05-04] MEDS: enoxaparin 40mg/0.4ml syringe SUBCUT SCH (09:06)
--- NOTE | 2019-05-04 11:49 | NUR ---
PATIENT RETURNED TO ROOM FROM HAVING CARDIAC STRESS , AND MRI OF HEAD . DR. PRASAD INTO SEE PATIENT AT THIS TIME. Addendum: 05/04/19 at 1150 by Nena Jackson RN Amended: Links added.
[2019-05-04] MEDS ORDERED: iohexol 350MG/ML 100ml bottle IV ONE (15:28)
[2019-05-04 16:11] LABS: CHOL/HDL RATIO 4.6 (0.00-4.99); CHOLESTEROL 219 MG/DL (0-200); HDL CHOLESTEROL 48 MG/DL (35-60); LDL CHOLESTEROL 158 MG/DL (50-100); TRIGLYCERIDES 66 MG/DL (20-135)
[2019-05-04] MEDS: clopidogrel 75mg tablet PO SCH (16:11)
--- NOTE | 2019-05-04 17:56 | NUR ---
PATIENT HAS HAD CT OF HEAD, CT OF CHEST WITH CONTRAS, AND ECG. PAGED VASCULAR LAB FOR ULTRASOUND TO R/O DVT; HOWEVER, HAVE NOT RECEIVED RESPONSE FROM VASCULAR ULTRASOUND AT THIS TIME. Addendum: 05/04/19 at 1803 by Nena Jackson RN Amended: Links added.
--- NOTE | 2019-05-04 18:00 | NUR ---
Patient in room MED 307. I have received report from DENIA Clark, and had the opportunity to ask questions and assume patient care.
--- NOTE | 2019-05-04 18:10 | NUR ---
Patient in room MED 307. I have received report from DENIA Clark and had the opportunity to ask questions and assume patient care.
--- NOTE | 2019-05-04 20:58 | NUR ---
PAGER ID: [phone] MESSAGE: MESSAGE: ACCE Nishant BelénrobbRicky has elevated BP throughout the day (systolic never drops below 170). Can we have a PRN antihypertensive med? Thx.
[2019-05-04] MEDS: lisinopril 20mg tablet PO SCH (21:01)
[2019-05-04] MEDS ORDERED: hydrALAZINE 20mg/ml inj. IV PRN (21:05)
[2019-05-05] VITALS (8 sets, daily range): BP systolic 94–149; BP diastolic 42–81
--- NOTE | 2019-05-05 06:00 | NUR ---
Reviewed and agreed with DENIA Echols's chart
--- NOTE | 2019-05-05 06:00 | NUR ---
Patient in room MED 307. I have received report from SANGITA, and had the opportunity to ask questions and assume patient care.
--- NOTE | 2019-05-05 06:17 | NUR ---
Problems reprioritized. Patient report given, questions answered & plan of care reviewed with DENIA De La O and DENIA Ramachandran (orienteer).
[2019-05-05 06:41] LABS: BASOPHILS % (AUTO) 0.3 % (0-1); EOSINOPHILS # (AUTO) 0.1 X10'3 (0-0.9); EOSINOPHILS % (AUTO) 1.3 % (0-6); HEMATOCRIT 40.9 % (35.0-45.0); HEMOGLOBIN 13.8 g/dl (12.0-16.0); LYMPHOCYTES # (AUTO) 0.4 X10'3 (1.1-4.8); LYMPHOCYTES % (AUTO) 5.3 % (21-51); MEAN CORPUSCULAR HEMOGLOBIN 32.1 PG (27.0-31.0); MEAN CORPUSCULAR HGB CONC 33.7 g/dL (33.0-36.5); MEAN CORPUSCULAR VOLUME 95.3 FL (78-98); MEAN PLATELET VOLUME 8.1 FL (7.4-10.4); MONOCYTES # (AUTO) 0.5 X10'3 (0-0.9); MONOCYTES % (AUTO) 6.3 % (2-12); NEUTROPHILS # (AUTO) 6.6 X10'3 (1.8-7.7); NEUTROPHILS % (AUTO) 86.8 % (42-75); PLATELET COUNT 216 X10'3 (140-440); RED BLOOD COUNT 4.29 X10'6 (4.20-5.60); RED CELL DISTRIBUTION WIDTH 13.3 % (11.5-14.5); WHITE BLOOD COUNT 7.6 X10'3 (4.5-11.0)
[2019-05-05 07:01] LABS: ALBUMIN 3.2 G/DL (3.4-5.0); ANION GAP 10 (8-16); BLOOD UREA NITROGEN 12 MG/DL (7-18); CALCIUM 8.4 MG/DL (8.5-10.1); CHLORIDE 104 MMOL/L (99-107); GLUCOSE 99 MG/DL (70-104); SODIUM 141 MMOL/L (135-145); TOTAL CARBON DIOXIDE 26.6 MMOL/L (24-32); eGFR 74 ML/MIN
[2019-05-05 07:07] LABS: POTASSIUM 4.2 MMOL/L (3.5-5.1)
[2019-05-05] MEDS: enoxaparin 40mg/0.4ml syringe SUBCUT SCH (07:40)
[2019-05-05] MEDS: clopidogrel 75mg tablet PO SCH (07:40)
[2019-05-05] MEDS: furosemide 40mg/4ml inj IV SCH ×2 (07:41→20:29)
[2019-05-05] MEDS: metoprolol tartrate 12.5mg (1/2 tablet) PO SCH ×2 (10:07→20:29)
[2019-05-05] MEDS ORDERED: atorvastatin 20mg tablet PO SCH (10:25)
--- NOTE | 2019-05-05 14:00 | NUR ---
patient ambulated 50 feet with walker (uses one at home), and PCT accompanied her for duration of walk
--- NOTE | 2019-05-05 15:06 | NUR ---
Page to Case Management. 307-[facility]. Dr. Corrales would like to see if we can get this pt. placed in a rehab? Thank You.
--- NOTE | 2019-05-05 16:10 | NUR ---
Patient in room MED 307. I have received report from Jaylyn LOZA and had the opportunity to ask questions and assume patient care.
--- NOTE | 2019-05-05 16:38 | NUR ---
PAGED ASKING FOR PO PAIN MEDICATION PAGED DR. DUCKWORTH "RE: KEERTHI KAYE IN 307, PT. C/O PAIN, ONLY MORPHINE ORDERED. CAN SHE HAVE SOMETHING PO? THANK YOU, LAURA MARKS [phone]" RECEIVED CALL BACK AND TELEPHONE ORDERS FOR NORCO 5/325 Q6 HOURS PRN MODERATE PAIN OR TYLENOL 650MG Q6 HOURS PRN MILD PAIN
[2019-05-05] MEDS ORDERED: HYDROcodone/acetaminophen 5mg/325mg tablet PO PRN (16:45)
[2019-05-05] MEDS: oxyCODONE/APAP 5-325mg tablet PO PRN (17:57)
--- NOTE | 2019-05-05 18:18 | NUR ---
Problems reprioritized. Patient report given, questions answered & plan of care reviewed with VIDHI.
[2019-05-05] MEDS: atorvastatin 20mg tablet PO SCH (20:28)
[2019-05-05] MEDS: lisinopril 20mg tablet PO SCH (20:35)
--- NOTE | 2019-05-05 21:00 | NUR ---
pt complained of pain on right posterior leg from previous surgical scar. slightly reddened and warm to touch. elevated leg and applied ice. ultrasound right leg was negative.
[2019-05-06] VITALS (7 sets, daily range): BP systolic 120–132; BP diastolic 65–90
--- NOTE | 2019-05-06 04:54 | NUR ---
Evangelina-RN chart check reviewed. Its complete, and accurate. NO missing or late medication noted.
--- NOTE | 2019-05-06 05:45 | NUR ---
pt refused IV lab draws from line or stick
--- NOTE | 2019-05-06 06:00 | NUR ---
Patient in room MED 307. I have received report from Kinza LOZA and Angela LOZA and had the opportunity to ask questions and assume patient care.
--- NOTE | 2019-05-06 06:17 | NUR ---
Problems reprioritized. Patient report given, questions answered & plan of care reviewed with DENIA Tijerina and DENIA Ramachandran (orienteer).
[2019-05-06] MEDS: atorvastatin 20mg tablet PO SCH (07:24)
[2019-05-06] MEDS: clopidogrel 75mg tablet PO SCH (07:25)
[2019-05-06] MEDS: enoxaparin 40mg/0.4ml syringe SUBCUT SCH (07:25)
[2019-05-06] MEDS: metoprolol tartrate 12.5mg (1/2 tablet) PO SCH ×2 (07:25→19:18)
[2019-05-06] MEDS: oxyCODONE/APAP 5-325mg tablet PO PRN ×2 (08:16→16:13)
[2019-05-06 09:08] LABS: BASOPHILS % (AUTO) 0.5 % (0-1); EOSINOPHILS # (AUTO) 0.2 X10'3 (0-0.9); EOSINOPHILS % (AUTO) 3.3 % (0-6); HEMATOCRIT 46.7 % (35.0-45.0); HEMOGLOBIN 15.5 g/dl (12.0-16.0); LYMPHOCYTES # (AUTO) 0.9 X10'3 (1.1-4.8); LYMPHOCYTES % (AUTO) 14.6 % (21-51); MEAN CORPUSCULAR HEMOGLOBIN 31.9 PG (27.0-31.0); MEAN CORPUSCULAR HGB CONC 33.2 g/dL (33.0-36.5); MEAN PLATELET VOLUME 8.1 FL (7.4-10.4); MONOCYTES # (AUTO) 0.6 X10'3 (0-0.9); MONOCYTES % (AUTO) 9.5 % (2-12); NEUTROPHILS # (AUTO) 4.5 X10'3 (1.8-7.7); NEUTROPHILS % (AUTO) 72.1 % (42-75); PLATELET COUNT 269 X10'3 (140-440); RED BLOOD COUNT 4.86 X10'6 (4.20-5.60); RED CELL DISTRIBUTION WIDTH 13.6 % (11.5-14.5); WHITE BLOOD COUNT 6.3 X10'3 (4.5-11.0)
[2019-05-06 09:14] LABS: ALBUMIN 3.5 G/DL (3.4-5.0); ANION GAP 6 (8-16); BLOOD UREA NITROGEN 16 MG/DL (7-18); BUN/CREATININE RATIO 18.6 (6.6-38.0); CALCIUM 8.9 MG/DL (8.5-10.1); CHLORIDE 102 MMOL/L (99-107); CREATININE 0.86 MG/DL (0.40-0.90); SODIUM 140 MMOL/L (135-145); TOTAL CARBON DIOXIDE 31.7 MMOL/L (24-32); eGFR 69 ML/MIN
[2019-05-06 09:16] LABS: POTASSIUM 3.9 MMOL/L (3.5-5.1)
[2019-05-06 09:25] LABS: GLUCOSE 123 MG/DL (70-104)
[2019-05-06] MEDS: furosemide 40mg/4ml inj IV SCH ×2 (11:28→19:18)
--- NOTE | 2019-05-06 16:54 | NUR ---
PAGER ID: [phone] MESSAGE: [phone]. The pt. is refusing to go to [facility] and would like to be discharged with Home health. Gayle said that she would be able to set it up tomorrow and the pt. is ok for discharge if it is ok with you. Breezy LOZA [phone]
[2019-05-06] MEDS ORDERED: ATOR-2 PO (16:58)
[2019-05-06] MEDS ORDERED: FURO20TA4 PO (16:58)
[2019-05-06] MEDS ORDERED: METO25TA6 PO (16:58)
[2019-05-06] MEDS ORDERED: CLOP75TA35 PO (16:58)
--- NOTE | 2019-05-06 17:13 | NUR ---
pt. educated on the meds she is taking and why again.
--- NOTE | 2019-05-06 18:23 | NUR ---
Problems reprioritized. Patient report given, questions answered & plan of care reviewed with Kaycee LOZA and Angela LOZA.
--- NOTE | 2019-05-06 18:47 | NUR ---
Patient in room MED 307. I have received report from JEVON LOZA and had the opportunity to ask questions and assume patient care.
--- NOTE | 2019-05-06 19:42 | NUR ---
Patient discharge home with home health. All the Discharge papers printed, explained her medications and informed her to follow up with her doctors and appointments. The patient is alert, oriented x4, not complaining of any painAll the questions were answered. The [facility] called in for the prescription refill.
--- NOTE | 2019-05-06 19:56 | NUR ---
Called the [facility] and left the message regarding the patient's new prescription medication with the patient's name, , the authorizing Dr name. The patient discharged at 1944.
== END 2019-05-06 19:55 | disposition home health service (06) | DRG 194 ==
LOC: ER 19:48 → EEVIPCON 19:48 → MED 3N 05-04 01:40
PROVIDERS: ADMIT Internal Medicine; ATTEND Family Medicine
PROC: 4A02XM4 Measurement of Cardiac Total Activity, External Approach (ICD-10-PCS; principal; 2019-05-04)
PROC: 3E033HZ Introduction of Radioactive Substance into Peripheral Vein, Percutaneous Approach (ICD-10-PCS; 2019-05-04)
PROC: B32T1ZZ Computerized Tomography (CT Scan) of Left Pulmonary Artery using Low Osmolar Contrast (ICD-10-PCS; 2019-05-04)
PROC: B3201ZZ Computerized Tomography (CT Scan) of Thoracic Aorta using Low Osmolar Contrast (ICD-10-PCS; 2019-05-04)
PROC: B32S1ZZ Computerized Tomography (CT Scan) of Right Pulmonary Artery using Low Osmolar Contrast (ICD-10-PCS; 2019-05-04)
PROC: 4A10X4Z Monitoring of Central Nervous Electrical Activity, External Approach (ICD-10-PCS; 2019-05-04)
DX: I50.813 Acute on chronic right heart failure (principal); N17.9 Acute kidney failure, unspecified; I27.81 Cor pulmonale (chronic); E66.01 Morbid (severe) obesity due to excess calories; G62.9 Polyneuropathy, unspecified; I69.354 Hemiplegia and hemiparesis following cerebral infarction affecting left non-dominant side; I25.119 Atherosclerotic heart disease of native coronary artery with unspecified angina pectoris; F32.9 Major depressive disorder, single episode, unspecified; F41.9 Anxiety disorder, unspecified; G89.29 Other chronic pain; M54.9 Dorsalgia, unspecified; R55 Syncope and collapse; E78.5 Hyperlipidemia, unspecified; Z68.43 Body mass index [BMI] 50.0-59.9, adult; Z79.02 Long term (current) use of antithrombotics/antiplatelets; Z79.82 Long term (current) use of aspirin; Z79.899 Other long term (current) drug therapy; Z85.43 Personal history of malignant neoplasm of ovary; Z85.72 Personal history of non-Hodgkin lymphomas; Z86.711 Personal history of pulmonary embolism; Z86.718 Personal history of other venous thrombosis and embolism; Z87.442 Personal history of urinary calculi; Z90.710 Acquired absence of both cervix and uterus; Z88.1 Allergy status to other antibiotic agents; Z88.5 Allergy status to narcotic agent; Z88.0 Allergy status to penicillin; Z88.2 Allergy status to sulfonamides; Z90.49 Acquired absence of other specified parts of digestive tract
CPT/HCPCS: 36415; 70450; 71045; 71275; 78452; 80048; 80053; 80061; 83880; 84443; 84484; 85025; 85610; 85730; 87081; 93005; 93017; 93306; 93970; 95816; 96374; 96375; 99285; A9500; G0378; J1650; J1940; J2270; J2785; J3010; Q9967

== ENCOUNTER 2019-05-08 22:02 | Emergency (ER) | payer MEDICAID ==
[~2019-05-08] VITALS: Ht 167.6 cm; Wt 150.0 kg
[~2019-05-08 22:02] MED LIST changes: +ATOR-2 PO; +CLOP75TA35 PO; +FURO20TA4 PO; +METO25TA6 PO
[2019-05-08 22:26] LABS: BASOPHILS # (AUTO) 0.1 X10'3 (0-0.2); BASOPHILS % (AUTO) 0.7 % (0-1); EOSINOPHILS # (AUTO) 0.2 X10'3 (0-0.9); EOSINOPHILS % (AUTO) 2.1 % (0-6); HEMATOCRIT 44.1 % (35.0-45.0); LYMPHOCYTES # (AUTO) 1.8 X10'3 (1.1-4.8); LYMPHOCYTES % (AUTO) 22.4 % (21-51); MEAN CORPUSCULAR HEMOGLOBIN 32.5 PG (27.0-31.0); MEAN CORPUSCULAR VOLUME 95.5 FL (78-98); MEAN PLATELET VOLUME 7.9 FL (7.4-10.4); MONOCYTES # (AUTO) 0.8 X10'3 (0-0.9); MONOCYTES % (AUTO) 10.3 % (2-12); NEUTROPHILS # (AUTO) 5.2 X10'3 (1.8-7.7); NEUTROPHILS % (AUTO) 64.5 % (42-75); PLATELET COUNT 264 X10'3 (140-440); RED BLOOD COUNT 4.62 X10'6 (4.20-5.60); RED CELL DISTRIBUTION WIDTH 13.4 % (11.5-14.5)
[2019-05-08 22:35] LABS: PARTIAL THROMBOPLASTIN TIME 31 SECONDS (22-32)
[2019-05-08 22:40] LABS: ALANINE AMINOTRANSFERASE 40 U/L (12-78); ALBUMIN 3.6 G/DL (3.4-5.0); ALBUMIN/GLOBULIN RATIO 0.8 (1.1-1.5); ALKALINE PHOSPHATASE 127 IU/L (46-116); ANION GAP 10 (8-16); ASPARTATE AMINO TRANSFERASE 28 U/L (10-37); BILIRUBIN,TOTAL 0.4 MG/DL (0.1-1.0); BLOOD UREA NITROGEN 12 MG/DL (7-18); BUN/CREATININE RATIO 12.5 (6.6-38.0); CHLORIDE 104 MMOL/L (99-107); CREATININE 0.96 MG/DL (0.40-0.90); GLUCOSE 120 MG/DL (70-104); POTASSIUM 3.8 MMOL/L (3.5-5.1); SODIUM 142 MMOL/L (135-145); TOTAL CARBON DIOXIDE 28.3 MMOL/L (24-32); TOTAL PROTEIN 8.2 G/DL (6.4-8.2); eGFR 60 ML/MIN
[2019-05-08] MEDS ORDERED: aspirin 81mg tab.chew PO ONE (23:30)
[2019-05-09] VITALS: BP 144/69
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
--- NOTE | 2019-05-09 01:48 | NUR ---
contacted [facility] @ [phone], they are attempting to contact someone to assist with placement and will get back to us
--- NOTE | 2019-05-09 02:51 | NUR ---
Contacted [facility], spoke with Karolyn who stated that she will call me back in 20 minutes for housing arrangements for the patient
--- NOTE | 2019-05-09 03:30 | NUR ---
Spoke with Danae at [facility] again, still trying to secure safe lodging for patient
--- NOTE | 2019-05-09 04:52 | NUR ---
Spoke with Danae again, she states that they are unable to coordinate lodging at this time. The main long term opens at 0830 and "they may be able to do something at that time"
--- NOTE | 2019-05-09 04:55 | NUR ---
Spoke with Quyen Charge Nurse regarding patient's situation. At this time it is not safe to discharge the patient without safe lodging arrangement and she will have to stay at this time until such arrangements can be made
--- NOTE | 2019-05-09 06:33 | NUR ---
pt sleeping in bed on right side. no distress noted. will continue to monitor.
--- NOTE | 2019-05-09 08:11 | NUR ---
HAND ROLLER ENGRAVER FROM [facility] CALLED, ([phone]) INFORMED PATIENT HAS A HOTEL AT [facility]. SHE IS ABLE TO CHECK IN NOW. [facility] CALLED FOR TRANSPORT, ETA 35-40 MINUTES.
== END 2019-05-09 08:21 | disposition home or self-care (01) ==
LOC: ER 22:02 → EEVIPCON 22:02 → ER 05-09 08:21
DX: R07.89 Other chest pain (principal); E66.01 Morbid (severe) obesity due to excess calories; I25.10 Atherosclerotic heart disease of native coronary artery without angina pectoris; G89.29 Other chronic pain; G62.9 Polyneuropathy, unspecified; Z90.49 Acquired absence of other specified parts of digestive tract; Z90.710 Acquired absence of both cervix and uterus; Z98.890 Other specified postprocedural states; Z56.0 Unemployment, unspecified; Z86.73 Personal history of transient ischemic attack (TIA), and cerebral infarction without residual deficits; Z87.442 Personal history of urinary calculi; Z79.82 Long term (current) use of aspirin; Z79.899 Other long term (current) drug therapy; Z88.0 Allergy status to penicillin; Z88.5 Allergy status to narcotic agent; Z88.1 Allergy status to other antibiotic agents; Z88.2 Allergy status to sulfonamides
CPT/HCPCS: 36415; 71045; 80053; 84484; 85025; 85610; 85730; 93005; 99284

== ENCOUNTER 2019-06-17 16:42 | Emergency (ER) | payer MEDICAID ==
[~2019-06-17] VITALS: Ht 165.1 cm; Wt 145.4 kg
[~2019-06-17 16:42] MED LIST changes: -ASPI-1265 PO; -METH-360 PO; -NAPR500T6 PO; -NITR100C6 PO
[2019-06-17] MEDS ORDERED: CEFD300C3 PO (18:13)
[2019-06-17 18:20] VITALS: BP 151/86
== END 2019-06-17 18:20 | disposition home or self-care (01) ==
LOC: ER 16:43
DX: J02.0 Streptococcal pharyngitis (principal); B95.0 Streptococcus, group A, as the cause of diseases classified elsewhere; H66.93 Otitis media, unspecified, bilateral; G62.9 Polyneuropathy, unspecified; I25.10 Atherosclerotic heart disease of native coronary artery without angina pectoris; G89.29 Other chronic pain; F41.9 Anxiety disorder, unspecified; F32.9 Major depressive disorder, single episode, unspecified; Z87.442 Personal history of urinary calculi; Z86.73 Personal history of transient ischemic attack (TIA), and cerebral infarction without residual deficits; Z90.49 Acquired absence of other specified parts of digestive tract; Z98.890 Other specified postprocedural states; Z90.710 Acquired absence of both cervix and uterus; Z86.14 Personal history of Methicillin resistant Staphylococcus aureus infection; Z90.89 Acquired absence of other organs; Z56.0 Unemployment, unspecified; Z88.0 Allergy status to penicillin; Z88.5 Allergy status to narcotic agent; Z88.1 Allergy status to other antibiotic agents; Z88.2 Allergy status to sulfonamides; Z88.6 Allergy status to analgesic agent; Z79.899 Other long term (current) drug therapy
CPT/HCPCS: 87880; 99283

== ENCOUNTER 2019-06-20 01:26 | Emergency (ER) | payer MEDICAID ==
[~2019-06-20] VITALS: Ht 165.1 cm; Wt 140.9 kg
[~2019-06-20 01:26] MED LIST changes: +CEFD300C3 PO
[2019-06-20] MEDS ORDERED: ondansetron 4mg rapidly disintigrating tab PO ONE (01:45)
[2019-06-20] MEDS ORDERED: normal saline 1000ml 1,000 ML IV ONE (02:15)
[2019-06-20] MEDS ORDERED: metoclopramide 5 mg/ml inj IV ONE (02:15)
--- NOTE | 2019-06-20 02:15 | NUR ---
DR. PANG MADE AWARE PT STILL C/O NAUSEA AFTER [address] ORDERS FOR IV MEDICATION.
[2019-06-20] MEDS ORDERED: ONDA8TAB6 PO (03:15)
--- NOTE | 2019-06-20 03:15 | NUR ---
DR. PANG MADE AWARE PT NO LONGER C/O NAUSEA. HAS HAD NO EPISODES OF EMESIS WHILE IN ED. TO REASSESS FOR D/C.
[2019-06-20 03:44] VITALS: BP 149/92
== END 2019-06-20 03:28 | disposition home or self-care (01) ==
LOC: ER 01:26
DX: R11.2 Nausea with vomiting, unspecified (principal); I63.89 Other cerebral infarction; G62.9 Polyneuropathy, unspecified; R56.9 Unspecified convulsions; I20.9 Angina pectoris, unspecified; I25.10 Atherosclerotic heart disease of native coronary artery without angina pectoris; J40 Bronchitis, not specified as acute or chronic; J16.8 Pneumonia due to other specified infectious organisms; N20.0 Calculus of kidney; E07.9 Disorder of thyroid, unspecified; M54.89 Other dorsalgia; M84.40XA Pathological fracture, unspecified site, initial encounter for fracture; L02.818 Cutaneous abscess of other sites; C85.90 Non-Hodgkin lymphoma, unspecified, unspecified site; C79.9 Secondary malignant neoplasm of unspecified site; F41.8 Other specified anxiety disorders; Z88.1 Allergy status to other antibiotic agents; Z88.5 Allergy status to narcotic agent; Z88.0 Allergy status to penicillin
CPT/HCPCS: 93005; 96361; 96374; 99283; J2765

== ENCOUNTER 2019-06-24 09:09 | Emergency (ER) | payer MEDICAID ==
[~2019-06-24] VITALS: Ht 167.6 cm; Wt 148.0 kg
[~2019-06-24 09:09] MED LIST changes: +ONDA8TAB6 PO
[2019-06-24 10:28] VITALS: BP 147/92
[2019-06-24] MEDS ORDERED: mag hydrox/Alum hydrox/simeth 30ml oral suspension PO ONE (11:20)
[2019-06-24] MEDS ORDERED: LIDOcaine Viscous 15ml cup MM ONE (11:20)
[2019-06-24] MEDS ORDERED: AZIT-63 PO (12:24)
== END 2019-06-24 12:50 | disposition home or self-care (01) ==
LOC: ER 09:09
DX: J02.0 Streptococcal pharyngitis (principal); B95.0 Streptococcus, group A, as the cause of diseases classified elsewhere; H92.03 Otalgia, bilateral; I25.10 Atherosclerotic heart disease of native coronary artery without angina pectoris; G89.29 Other chronic pain; I10 Essential (primary) hypertension; F41.9 Anxiety disorder, unspecified; F32.9 Major depressive disorder, single episode, unspecified; G62.9 Polyneuropathy, unspecified; Z87.442 Personal history of urinary calculi; Z86.14 Personal history of Methicillin resistant Staphylococcus aureus infection; Z90.49 Acquired absence of other specified parts of digestive tract; Z90.710 Acquired absence of both cervix and uterus; Z98.890 Other specified postprocedural states; Z90.89 Acquired absence of other organs; Z86.73 Personal history of transient ischemic attack (TIA), and cerebral infarction without residual deficits; Z56.0 Unemployment, unspecified; Z85.43 Personal history of malignant neoplasm of ovary; Z88.0 Allergy status to penicillin; Z88.5 Allergy status to narcotic agent; Z88.1 Allergy status to other antibiotic agents; Z88.2 Allergy status to sulfonamides; Z88.6 Allergy status to analgesic agent; Z88.8 Allergy status to other drugs, medicaments and biological substances; Z79.899 Other long term (current) drug therapy
CPT/HCPCS: 87880; 99283

== ENCOUNTER 2019-07-11 13:11 | Emergency (ER) | payer MEDICAID ==
[~2019-07-11] VITALS: Ht 165.1 cm; Wt 147.4 kg
[~2019-07-11 13:11] MED LIST changes: +AZIT-63 PO; -CEFD300C3 PO; -CLOP75TA35 PO; -FURO20TA4 PO; -METO25TA6 PO; -ONDA8TAB6 PO
[2019-07-11 13:22] VITALS: BP 156/91
[2019-07-11] MEDS ORDERED: AMOX500C2 PO (15:15)
[2019-07-11] MEDS ORDERED: DIPH25CA83 PO (15:21)
== END 2019-07-11 15:31 | disposition home or self-care (01) ==
LOC: ER 13:12
DX: J02.0 Streptococcal pharyngitis (principal); I25.10 Atherosclerotic heart disease of native coronary artery without angina pectoris; G89.29 Other chronic pain; G62.9 Polyneuropathy, unspecified; I10 Essential (primary) hypertension; Z86.73 Personal history of transient ischemic attack (TIA), and cerebral infarction without residual deficits; Z56.0 Unemployment, unspecified; Z90.49 Acquired absence of other specified parts of digestive tract; Z98.890 Other specified postprocedural states; Z86.14 Personal history of Methicillin resistant Staphylococcus aureus infection; Z88.0 Allergy status to penicillin; Z88.1 Allergy status to other antibiotic agents; Z88.5 Allergy status to narcotic agent; Z88.6 Allergy status to analgesic agent; Z79.899 Other long term (current) drug therapy
CPT/HCPCS: 87880; 99283

== ENCOUNTER 2019-08-09 22:58 | Emergency (ER) | payer MEDICAID ==
[~2019-08-09] VITALS: Ht 167.6 cm; Wt 141.0 kg
[~2019-08-09 22:58] MED LIST changes: +AMOX500C2 PO; -AZIT-63 PO; +DIPH25CA83 PO
[2019-08-10] MEDS ORDERED: orphenadrine citrate 60mg/2ml inj. IM ONE
[2019-08-10] MEDS ORDERED: dexamethasone 4mg tablet PO ONE
[2019-08-10 00:54] LABS: CLARITY,URINE SLIGHTLY CLOUDY (Clear); COLOR,URINE YELLOW (Yellow); GLUCOSE, URINE NEGATIVE (Neg); KETONES,URINE NEGATIVE (Neg); LEUKOCYTE ESTERASE ,URINE NEGATIVE (Neg); NITRITES, URINE NEGATIVE (Neg); OCCULT BLOOD,URINE NEGATIVE (Neg); PROTEIN,URINE NEGATIVE (Neg); UROBILINOGEN,URINE 0.2 E.U/dL (0.2-1.0)
[2019-08-10 00:56] LABS: UA COLLECTION TYPE VOIDED
[2019-08-10 01:02] LABS: URINE AMPHETAMINE SCREEN NEGATIVE (Neg); URINE BARBITUATE SCREEN NEGATIVE (Neg); URINE BENZODIAZEPINES SCREEN NEGATIVE (Neg); URINE CANNABINOID SCREEN NEGATIVE (Neg); URINE COCAINE SCREEN NEGATIVE (Neg); URINE METHADONE SCREEN NEGATIVE (Neg); URINE OPIATE SCREEN NEGATIVE (Neg); URINE PHENCYCLIDINE SCREEN NEGATIVE (Neg)
[2019-08-10 01:14] LABS: BACTERIA,URINE 3+ /HPF (Neg); MUCUS STRANDS FEW /LPF (Neg); RBC,URINE NONE SEEN /HPF (0-2); SQUAMOUS EPITHELIAL CELL,UR MANY /LPF (FEW); WBC,URINE 0-4 /HPF (0-4)
--- NOTE | 2019-08-10 02:19 | NUR ---
CALLED [facility] FOR ROUND TRIP TO [facility] FOR MRI AT 2:18. NO ETA
--- NOTE | 2019-08-10 03:30 | NUR ---
CALLED [facility] FOR ETA OF ROUND TRIP MRI TO [facility] AT 3:31. 30 MIN ETA GIVEN
[2019-08-10] MEDS ORDERED: oxyCODONE/APAP 10/325mg tablet PO ONE (04:45)
[2019-08-10] MEDS ORDERED: morphine 4 MG/ML inj SYRINge IV ONE (07:25)
[2019-08-10] MEDS ORDERED: morphine 4 MG/ML inj SYRINge IV PRN (09:55)
[2019-08-10] MEDS ORDERED: ondansetron/PF 4mg/2ml inj IV ONE (09:55)
[2019-08-10] MEDS ORDERED: ORPH100T2 PO (10:42)
[2019-08-10] MEDS ORDERED: HYDR-4353 PO (10:42)
[2019-08-10 11:08] VITALS: BP 140/68
== END 2019-08-10 11:09 | disposition home or self-care (01) ==
LOC: ER 22:59
DX: M54.5 Low back pain (principal); R53.1 Weakness; R32 Unspecified urinary incontinence; G62.9 Polyneuropathy, unspecified; I25.10 Atherosclerotic heart disease of native coronary artery without angina pectoris; I10 Essential (primary) hypertension; G89.29 Other chronic pain; F41.9 Anxiety disorder, unspecified; F32.9 Major depressive disorder, single episode, unspecified; Z86.14 Personal history of Methicillin resistant Staphylococcus aureus infection; Z90.49 Acquired absence of other specified parts of digestive tract; Z90.710 Acquired absence of both cervix and uterus; Z90.89 Acquired absence of other organs; Z86.73 Personal history of transient ischemic attack (TIA), and cerebral infarction without residual deficits; Z98.890 Other specified postprocedural states; Z56.0 Unemployment, unspecified; Z87.442 Personal history of urinary calculi; Z85.43 Personal history of malignant neoplasm of ovary; Z86.69 Personal history of other diseases of the nervous system and sense organs; Z88.0 Allergy status to penicillin; Z88.5 Allergy status to narcotic agent; Z88.2 Allergy status to sulfonamides; Z88.1 Allergy status to other antibiotic agents; Z88.6 Allergy status to analgesic agent; Z88.8 Allergy status to other drugs, medicaments and biological substances; Z79.899 Other long term (current) drug therapy
CPT/HCPCS: 72148; 80305; 81001; 96372; 96374; 96375; 96376; 99284; J2270; J2360; J2405

== ENCOUNTER 2019-09-26 23:01 | Emergency (ER) | payer MEDICAID ==
[~2019-09-26] VITALS: Ht 165.1 cm; Wt 150.0 kg
[~2019-09-26 23:01] MED LIST changes: -AMOX500C2 PO; +ORPH100T2 PO
[2019-09-26] MEDS ORDERED: mag hydrox/Alum hydrox/simeth 30ml oral suspension PO ONE (23:40)
[2019-09-26] MEDS ORDERED: LIDOcaine Viscous 15ml cup MM ONE (23:40)
[2019-09-26] MEDS ORDERED: LORazepam 1 MG tablet PO ONE (23:40)
[2019-09-27 00:10] LABS: BASOPHILS # (AUTO) 0.1 X10'3 (0-0.2); EOSINOPHILS # (AUTO) 0.1 X10'3 (0-0.9); EOSINOPHILS % (AUTO) 1.5 % (0-6); HEMATOCRIT 40.1 % (35.0-45.0); HEMOGLOBIN 13.9 g/dl (12.0-16.0); LYMPHOCYTES # (AUTO) 2.7 X10'3 (1.1-4.8); LYMPHOCYTES % (AUTO) 32.1 % (21-51); MEAN CORPUSCULAR HEMOGLOBIN 32.6 PG (27.0-31.0); MEAN CORPUSCULAR HGB CONC 34.7 g/dL (33.0-36.5); MEAN PLATELET VOLUME 7.7 FL (7.4-10.4); MONOCYTES # (AUTO) 0.7 X10'3 (0-0.9); MONOCYTES % (AUTO) 8.2 % (2-12); NEUTROPHILS # (AUTO) 4.9 X10'3 (1.8-7.7); NEUTROPHILS % (AUTO) 57.2 % (42-75); PLATELET COUNT 240 X10'3 (140-440); RED BLOOD COUNT 4.26 X10'6 (4.20-5.60); RED CELL DISTRIBUTION WIDTH 13.5 % (11.5-14.5); WHITE BLOOD COUNT 8.5 X10'3 (4.5-11.0)
[2019-09-27] MEDS ORDERED: nitroGLYCERIN 0.4mg SUBLingual tab SL PRN (00:10)
[2019-09-27] MEDS ORDERED: ibuprofen 200mg tablet PO ONE (00:20)
[2019-09-27 00:24] LABS: ALANINE AMINOTRANSFERASE 39 U/L (12-78); ALBUMIN 3.2 G/DL (3.4-5.0); ALBUMIN/GLOBULIN RATIO 0.7 (1.1-1.5); ALKALINE PHOSPHATASE 134 IU/L (46-116); ANION GAP 7 (8-16); ASPARTATE AMINO TRANSFERASE 24 U/L (10-37); BILIRUBIN,TOTAL 0.2 MG/DL (0.1-1.0); BLOOD UREA NITROGEN 18 MG/DL (7-18); BUN/CREATININE RATIO 20.2 (6.6-38.0); CHLORIDE 107 MMOL/L (99-107); CREATININE 0.89 MG/DL (0.40-0.90); GLUCOSE 125 MG/DL (70-104); POTASSIUM 3.5 MMOL/L (3.5-5.1); SODIUM 141 MMOL/L (135-145); TOTAL CARBON DIOXIDE 27.5 MMOL/L (24-32); TOTAL PROTEIN 7.6 G/DL (6.4-8.2); eGFR 66 ML/MIN
[2019-09-27] MEDS ORDERED: ondansetron/PF 4mg/2ml inj IV ONE (01:05)
[2019-09-27 01:49] VITALS: BP 155/88
== END 2019-09-27 03:20 | disposition home or self-care (01) ==
LOC: ER 23:02
DX: R07.89 Other chest pain (principal); I10 Essential (primary) hypertension; G62.9 Polyneuropathy, unspecified; I25.10 Atherosclerotic heart disease of native coronary artery without angina pectoris; G89.29 Other chronic pain; F32.9 Major depressive disorder, single episode, unspecified; F41.9 Anxiety disorder, unspecified; Z86.14 Personal history of Methicillin resistant Staphylococcus aureus infection; Z86.73 Personal history of transient ischemic attack (TIA), and cerebral infarction without residual deficits; Z85.43 Personal history of malignant neoplasm of ovary; Z86.69 Personal history of other diseases of the nervous system and sense organs; Z88.0 Allergy status to penicillin; Z88.8 Allergy status to other drugs, medicaments and biological substances; Z79.899 Other long term (current) drug therapy; Z90.49 Acquired absence of other specified parts of digestive tract; Z90.710 Acquired absence of both cervix and uterus; Z98.890 Other specified postprocedural states; Z56.0 Unemployment, unspecified
CPT/HCPCS: 36415; 71045; 80053; 83880; 84484; 85025; 93005; 96374; 99284; J2405

== ENCOUNTER 2019-10-01 21:50 | Emergency (ER) | payer MEDICAID ==
[~2019-10-01] VITALS: Ht 165.1 cm; Wt 150.0 kg
[2019-10-01 22:34] LABS: BASOPHILS # (AUTO) 0.1 X10'3 (0-0.2); BASOPHILS % (AUTO) 0.9 % (0-1); EOSINOPHILS # (AUTO) 0.1 X10'3 (0-0.9); EOSINOPHILS % (AUTO) 1.5 % (0-6); HEMATOCRIT 41.8 % (35.0-45.0); HEMOGLOBIN 14.4 g/dl (12.0-16.0); LYMPHOCYTES # (AUTO) 2.2 X10'3 (1.1-4.8); LYMPHOCYTES % (AUTO) 24.9 % (21-51); MEAN CORPUSCULAR HEMOGLOBIN 32.5 PG (27.0-31.0); MEAN CORPUSCULAR HGB CONC 34.4 g/dL (33.0-36.5); MEAN CORPUSCULAR VOLUME 94.5 FL (78-98); MEAN PLATELET VOLUME 7.6 FL (7.4-10.4); MONOCYTES # (AUTO) 0.6 X10'3 (0-0.9); MONOCYTES % (AUTO) 6.6 % (2-12); NEUTROPHILS % (AUTO) 66.1 % (42-75); PLATELET COUNT 240 X10'3 (140-440); RED BLOOD COUNT 4.43 X10'6 (4.20-5.60); RED CELL DISTRIBUTION WIDTH 13.4 % (11.5-14.5)
[2019-10-01 22:47] LABS: ALANINE AMINOTRANSFERASE 40 U/L (12-78); ALBUMIN 3.3 G/DL (3.4-5.0); ALBUMIN/GLOBULIN RATIO 0.8 (1.1-1.5); ALKALINE PHOSPHATASE 131 IU/L (46-116); ANION GAP 7 (8-16); ASPARTATE AMINO TRANSFERASE 27 U/L (10-37); BILIRUBIN,TOTAL 0.2 MG/DL (0.1-1.0); BLOOD UREA NITROGEN 17 MG/DL (7-18); BUN/CREATININE RATIO 18.9 (6.6-38.0); CALCIUM 8.4 MG/DL (8.5-10.1); CHLORIDE 107 MMOL/L (99-107); GLUCOSE 121 MG/DL (70-104); POTASSIUM 3.6 MMOL/L (3.5-5.1); SODIUM 142 MMOL/L (135-145); TOTAL CARBON DIOXIDE 27.6 MMOL/L (24-32); TOTAL PROTEIN 7.7 G/DL (6.4-8.2); eGFR 65 ML/MIN
[2019-10-01 22:48] LABS: TROPONIN I < 0.04 NG/ML (0.0-0.05)
[2019-10-02] MEDS ORDERED: pantoprazole 40 MG vial IV ONE (00:45)
[2019-10-02] MEDS ORDERED: morphine 2 MG/ML inj. syringe IV PRN (00:45)
[2019-10-02] MEDS ORDERED: normal saline 1000ML IV soln IVB ONE (00:45)
[2019-10-02] MEDS ORDERED: proCHLORperazine 10 MG/2 ml inj IV ONE (00:45)
[2019-10-02] MEDS ORDERED: ONDA8TAB13 PO (02:11)
[2019-10-02] MEDS ORDERED: PANT-47 PO (02:11)
[2019-10-02 02:12] VITALS: BP 165/89
== END 2019-10-02 02:44 | disposition home or self-care (01) ==
LOC: ER 21:51
DX: R07.89 Other chest pain (principal); R10.13 Epigastric pain; I10 Essential (primary) hypertension; F41.9 Anxiety disorder, unspecified; F32.9 Major depressive disorder, single episode, unspecified; I25.10 Atherosclerotic heart disease of native coronary artery without angina pectoris; R11.10 Vomiting, unspecified; Z87.442 Personal history of urinary calculi; Z86.73 Personal history of transient ischemic attack (TIA), and cerebral infarction without residual deficits; Z86.14 Personal history of Methicillin resistant Staphylococcus aureus infection; Z90.710 Acquired absence of both cervix and uterus; Z90.49 Acquired absence of other specified parts of digestive tract; Z56.0 Unemployment, unspecified; Z88.0 Allergy status to penicillin; Z88.2 Allergy status to sulfonamides; Z88.5 Allergy status to narcotic agent; Z88.8 Allergy status to other drugs, medicaments and biological substances
CPT/HCPCS: 36415; 71046; 80053; 84484; 85025; 93005; 96361; 96374; 96375; 99285; C9113; J0780; J2270; J7030

== ENCOUNTER 2019-11-02 18:01 | Emergency (ER) | payer MEDICAID ==
[~2019-11-02] VITALS: Ht 167.6 cm; Wt 154.0 kg
[~2019-11-02 18:01] MED LIST changes: +ONDA8TAB13 PO; +PANT-47 PO
[2019-11-02 18:19] VITALS: BP 172/107
[2019-11-02] MEDS ORDERED: HCTZ25T PO (19:27)
== END 2019-11-02 20:15 | disposition home or self-care (01) ==
LOC: ER 18:01
DX: M25.511 Pain in right shoulder (principal); I25.10 Atherosclerotic heart disease of native coronary artery without angina pectoris; I10 Essential (primary) hypertension; G89.29 Other chronic pain; F41.9 Anxiety disorder, unspecified; F32.9 Major depressive disorder, single episode, unspecified; Z86.14 Personal history of Methicillin resistant Staphylococcus aureus infection; Z86.73 Personal history of transient ischemic attack (TIA), and cerebral infarction without residual deficits; Z87.442 Personal history of urinary calculi; Z90.49 Acquired absence of other specified parts of digestive tract; Z98.890 Other specified postprocedural states; Z90.710 Acquired absence of both cervix and uterus; Z56.0 Unemployment, unspecified; Z90.89 Acquired absence of other organs; Z88.0 Allergy status to penicillin; Z88.5 Allergy status to narcotic agent; Z88.2 Allergy status to sulfonamides; Z88.1 Allergy status to other antibiotic agents; Z88.6 Allergy status to analgesic agent; Z79.899 Other long term (current) drug therapy
CPT/HCPCS: 73030; 99284

== ENCOUNTER 2019-11-15 15:52 | Emergency (ER) | payer MEDICAID ==
[~2019-11-15] VITALS: Ht 167.6 cm; Wt 150.0 kg
[~2019-11-15 15:52] MED LIST changes: +HCTZ25T PO
[2019-11-15] MEDS ORDERED: LIDOcaine 2% 10ml TOPICAL JELLY (Urojet) TP ONE (16:00)
[2019-11-15] MEDS ORDERED: ondansetron/PF 4mg/2ml inj IV ONE (16:45)
[2019-11-15] MEDS ORDERED: morphine 4 MG/ML inj SYRINge IV ONE (16:45)
[2019-11-15 17:25] LABS: BASOPHILS # (AUTO) 0.1 X10'3 (0-0.2); BASOPHILS % (AUTO) 0.6 % (0-1); EOSINOPHILS # (AUTO) 0.1 X10'3 (0-0.9); EOSINOPHILS % (AUTO) 0.8 % (0-6); HEMATOCRIT 44.9 % (35.0-45.0); HEMOGLOBIN 15.1 g/dl (12.0-16.0); LYMPHOCYTES # (AUTO) 1.9 X10'3 (1.1-4.8); LYMPHOCYTES % (AUTO) 17.9 % (21-51); MEAN CORPUSCULAR HEMOGLOBIN 31.8 PG (27.0-31.0); MEAN CORPUSCULAR HGB CONC 33.6 g/dL (33.0-36.5); MEAN CORPUSCULAR VOLUME 94.8 FL (78-98); MONOCYTES # (AUTO) 0.8 X10'3 (0-0.9); MONOCYTES % (AUTO) 7.8 % (2-12); NEUTROPHILS # (AUTO) 7.9 X10'3 (1.8-7.7); NEUTROPHILS % (AUTO) 72.9 % (42-75); PLATELET COUNT 283 X10'3 (140-440); RED BLOOD COUNT 4.73 X10'6 (4.20-5.60); RED CELL DISTRIBUTION WIDTH 13.7 % (11.5-14.5); WHITE BLOOD COUNT 10.8 X10'3 (4.5-11.0)
[2019-11-15 17:40] LABS: ALANINE AMINOTRANSFERASE 46 U/L (12-78); ALBUMIN 3.6 G/DL (3.4-5.0); ALBUMIN/GLOBULIN RATIO 0.7 (1.1-1.5); ALKALINE PHOSPHATASE 148 IU/L (46-116); ANION GAP 6 (8-16); ASPARTATE AMINO TRANSFERASE 33 U/L (10-37); BILIRUBIN,TOTAL 0.3 MG/DL (0.1-1.0); BLOOD UREA NITROGEN 10 MG/DL (7-18); BUN/CREATININE RATIO 11.1 (6.6-38.0); CHLORIDE 103 MMOL/L (99-107); GLUCOSE 91 MG/DL (70-104); LIPASE 109 U/L (73-393); POTASSIUM 4.4 MMOL/L (3.5-5.1); SODIUM 138 MMOL/L (135-145); TOTAL CARBON DIOXIDE 28.6 MMOL/L (24-32); TOTAL PROTEIN 8.9 G/DL (6.4-8.2); eGFR 65 ML/MIN
[2019-11-15 18:00] LABS: CLARITY,URINE CLEAR (Clear); COLOR,URINE YELLOW (Yellow); GLUCOSE, URINE NEGATIVE (Neg); KETONES,URINE NEGATIVE (Neg); LEUKOCYTE ESTERASE ,URINE NEGATIVE (Neg); NITRITES, URINE NEGATIVE (Neg); OCCULT BLOOD,URINE TRACE-INTACT (Neg); PH,URINE 5.5 (4.8-8.0); PROTEIN,URINE NEGATIVE (Neg); UROBILINOGEN,URINE 0.2 E.U/dL (0.2-1.0)
[2019-11-15 18:09] LABS: UA COLLECTION TYPE FOLEY CATH
[2019-11-15 18:10] LABS: BACTERIA,URINE NONE SEEN /HPF (Neg); MUCUS STRANDS MODERATE /LPF (Neg); RBC,URINE 0-2 /HPF (0-2); SQUAMOUS EPITHELIAL CELL,UR MODERATE /LPF (FEW); WBC,URINE 0-4 /HPF (0-4)
[2019-11-15] MEDS ORDERED: ONDA4TAB6 PO (19:00)
[2019-11-15] MEDS ORDERED: IBUP-1984 PO (19:00)
[2019-11-15] MEDS ORDERED: OXYC-145 PO (19:14)
[2019-11-15 19:27] VITALS: BP 156/76
== END 2019-11-15 19:29 | disposition home or self-care (01) ==
LOC: ER 15:52
DX: N23 Unspecified renal colic (principal); G62.9 Polyneuropathy, unspecified; I25.10 Atherosclerotic heart disease of native coronary artery without angina pectoris; I10 Essential (primary) hypertension; G89.29 Other chronic pain; F41.9 Anxiety disorder, unspecified; F32.9 Major depressive disorder, single episode, unspecified; Z98.890 Other specified postprocedural states; Z90.710 Acquired absence of both cervix and uterus; Z86.73 Personal history of transient ischemic attack (TIA), and cerebral infarction without residual deficits; Z86.14 Personal history of Methicillin resistant Staphylococcus aureus infection; Z90.49 Acquired absence of other specified parts of digestive tract; Z56.0 Unemployment, unspecified; Z88.0 Allergy status to penicillin; Z88.1 Allergy status to other antibiotic agents; Z88.5 Allergy status to narcotic agent; Z88.2 Allergy status to sulfonamides; Z79.899 Other long term (current) drug therapy
CPT/HCPCS: 36415; 74176; 80053; 81001; 83690; 85025; 96374; 96375; 99284; J2270; J2405

== ENCOUNTER 2019-11-25 17:06 | Emergency (ER) | payer MEDICAID ==
[~2019-11-25] VITALS: Ht 165.1 cm; Wt 150.0 kg
[~2019-11-25 17:06] MED LIST changes: +ONDA4TAB6 PO; +OXYC-145 PO
[2019-11-25 18:33] LABS: BASOPHILS % (AUTO) 0.3 % (0-1); EOSINOPHILS # (AUTO) 0.1 X10'3 (0-0.9); EOSINOPHILS % (AUTO) 0.7 % (0-6); HEMATOCRIT 42.5 % (35.0-45.0); HEMOGLOBIN 14.2 g/dl (12.0-16.0); LYMPHOCYTES # (AUTO) 1.9 X10'3 (1.1-4.8); LYMPHOCYTES % (AUTO) 17.6 % (21-51); MEAN CORPUSCULAR HEMOGLOBIN 31.7 PG (27.0-31.0); MEAN CORPUSCULAR HGB CONC 33.4 g/dL (33.0-36.5); MEAN CORPUSCULAR VOLUME 94.8 FL (78-98); MEAN PLATELET VOLUME 7.7 FL (7.4-10.4); MONOCYTES # (AUTO) 0.6 X10'3 (0-0.9); MONOCYTES % (AUTO) 5.3 % (2-12); NEUTROPHILS # (AUTO) 8.1 X10'3 (1.8-7.7); NEUTROPHILS % (AUTO) 76.1 % (42-75); PLATELET COUNT 260 X10'3 (140-440); RED BLOOD COUNT 4.48 X10'6 (4.20-5.60); RED CELL DISTRIBUTION WIDTH 13.7 % (11.5-14.5); WHITE BLOOD COUNT 10.6 X10'3 (4.5-11.0)
[2019-11-25 18:38] LABS: ALANINE AMINOTRANSFERASE 28 U/L (12-78); ALBUMIN 3.2 G/DL (3.4-5.0); ALBUMIN/GLOBULIN RATIO 0.7 (1.1-1.5); ALKALINE PHOSPHATASE 132 IU/L (46-116); ANION GAP 8 (8-16); ASPARTATE AMINO TRANSFERASE 24 U/L (10-37); BILIRUBIN,TOTAL 0.3 MG/DL (0.1-1.0); BLOOD UREA NITROGEN 13 MG/DL (7-18); BUN/CREATININE RATIO 14.4 (6.6-38.0); CALCIUM 8.9 MG/DL (8.5-10.1); CHLORIDE 105 MMOL/L (99-107); GLUCOSE 118 MG/DL (70-104); POTASSIUM 3.7 MMOL/L (3.5-5.1); SODIUM 141 MMOL/L (135-145); TOTAL CARBON DIOXIDE 28.1 MMOL/L (24-32); TOTAL PROTEIN 7.8 G/DL (6.4-8.2); eGFR 65 ML/MIN
[2019-11-25] MEDS ORDERED: oxyCODONE/APAP 5-325mg tablet PO ONE (19:35)
[2019-11-25 20:20] LABS: CLARITY,URINE SLIGHTLY CLOUDY (Clear); COLOR,URINE YELLOW (Yellow); GLUCOSE, URINE NEGATIVE (Neg); KETONES,URINE NEGATIVE (Neg); LEUKOCYTE ESTERASE ,URINE TRACE (Neg); NITRITES, URINE NEGATIVE (Neg); OCCULT BLOOD,URINE NEGATIVE (Neg); PROTEIN,URINE NEGATIVE (Neg); UROBILINOGEN,URINE 0.2 E.U/dL (0.2-1.0)
[2019-11-25 20:45] LABS: UA COLLECTION TYPE CLN CATCH MIDSTREAM
[2019-11-25 20:48] LABS: BACTERIA,URINE FEW /HPF (Neg); CAL OXALATE CRYSTALS 3+ /HPF (NEGATIVE); RBC,URINE NONE SEEN /HPF (0-2); SQUAMOUS EPITHELIAL CELL,UR MANY /LPF (FEW); WBC,URINE 0-4 /HPF (0-4)
[2019-11-25] MEDS ORDERED: OXYC-145 PO (20:48)
[2019-11-25] MEDS ORDERED: ONDA4TAB6 PO (20:48)
[2019-11-25] MEDS ORDERED: NAPR-56 PO (20:48)
[2019-11-25 21:00] VITALS: BP 159/99
== END 2019-11-25 21:02 | disposition home or self-care (01) ==
LOC: ER 17:06
DX: N23 Unspecified renal colic (principal); I10 Essential (primary) hypertension; I25.10 Atherosclerotic heart disease of native coronary artery without angina pectoris; G89.29 Other chronic pain; F41.9 Anxiety disorder, unspecified; F32.9 Major depressive disorder, single episode, unspecified; G62.9 Polyneuropathy, unspecified; E66.01 Morbid (severe) obesity due to excess calories; Z86.73 Personal history of transient ischemic attack (TIA), and cerebral infarction without residual deficits; Z90.89 Acquired absence of other organs; Z90.710 Acquired absence of both cervix and uterus; Z56.0 Unemployment, unspecified; Z68.43 Body mass index [BMI] 50.0-59.9, adult; Z85.43 Personal history of malignant neoplasm of ovary
CPT/HCPCS: 36415; 76775; 80053; 81001; 85025; 99284

== ENCOUNTER 2019-11-30 17:28 | Emergency (ER) | payer MEDICAID ==
[~2019-11-30] VITALS: Ht 165.1 cm; Wt 150.0 kg
[~2019-11-30 17:28] MED LIST changes: +NAPR-56 PO
[2019-11-30 17:30] VITALS: BP 188/107
[2019-11-30 19:14] LABS: BASOPHILS % (AUTO) 0.3 % (0-1); EOSINOPHILS # (AUTO) 0.1 X10'3 (0-0.9); EOSINOPHILS % (AUTO) 0.6 % (0-6); HEMATOCRIT 40.1 % (35.0-45.0); HEMOGLOBIN 13.3 g/dl (12.0-16.0); LYMPHOCYTES # (AUTO) 1.8 X10'3 (1.1-4.8); MEAN CORPUSCULAR HEMOGLOBIN 31.7 PG (27.0-31.0); MEAN CORPUSCULAR HGB CONC 33.3 g/dL (33.0-36.5); MEAN CORPUSCULAR VOLUME 95.2 FL (78-98); MEAN PLATELET VOLUME 7.6 FL (7.4-10.4); MONOCYTES # (AUTO) 0.7 X10'3 (0-0.9); MONOCYTES % (AUTO) 7.2 % (2-12); NEUTROPHILS # (AUTO) 7.4 X10'3 (1.8-7.7); NEUTROPHILS % (AUTO) 73.9 % (42-75); PLATELET COUNT 238 X10'3 (140-440); RED BLOOD COUNT 4.21 X10'6 (4.20-5.60); RED CELL DISTRIBUTION WIDTH 13.7 % (11.5-14.5)
[2019-11-30 19:25] LABS: D-DIMER 0.84 MG/L FEU (0-0.50); PARTIAL THROMBOPLASTIN TIME 28 SECONDS (22-32)
[2019-11-30 19:28] LABS: ALANINE AMINOTRANSFERASE 29 U/L (12-78); ALBUMIN/GLOBULIN RATIO 0.7 (1.1-1.5); ALKALINE PHOSPHATASE 118 IU/L (46-116); ANION GAP 4 (8-16); ASPARTATE AMINO TRANSFERASE 22 U/L (10-37); BILIRUBIN,TOTAL 0.3 MG/DL (0.1-1.0); BLOOD UREA NITROGEN 13 MG/DL (7-18); CALCIUM 8.4 MG/DL (8.5-10.1); CHLORIDE 108 MMOL/L (99-107); GLUCOSE 98 MG/DL (70-104); POTASSIUM 3.9 MMOL/L (3.5-5.1); SODIUM 142 MMOL/L (135-145); TOTAL CARBON DIOXIDE 29.7 MMOL/L (24-32); TOTAL PROTEIN 7.1 G/DL (6.4-8.2); eGFR 58 ML/MIN
[2019-11-30 19:35] LABS: C-REACTIVE PROTEIN 0.35 MG/DL (0.0-0.5); LACTATE DEHYDROGENASE 179 U/L (81-234)
[2019-11-30] MEDS ORDERED: iohexol 350MG/ML 100ml bottle IV ONE (20:03)
== END 2019-11-30 20:53 | disposition home or self-care (01) ==
LOC: ER 17:29
DX: R79.1 Abnormal coagulation profile (principal); R06.00 Dyspnea, unspecified; I10 Essential (primary) hypertension; I25.10 Atherosclerotic heart disease of native coronary artery without angina pectoris; G89.29 Other chronic pain; F41.9 Anxiety disorder, unspecified; G62.9 Polyneuropathy, unspecified; F32.9 Major depressive disorder, single episode, unspecified; Z87.442 Personal history of urinary calculi; Z86.718 Personal history of other venous thrombosis and embolism; Z86.73 Personal history of transient ischemic attack (TIA), and cerebral infarction without residual deficits; Z90.710 Acquired absence of both cervix and uterus; Z90.49 Acquired absence of other specified parts of digestive tract; Z56.0 Unemployment, unspecified; Z86.14 Personal history of Methicillin resistant Staphylococcus aureus infection; Z87.898 Personal history of other specified conditions; Z88.0 Allergy status to penicillin; Z88.2 Allergy status to sulfonamides; Z88.1 Allergy status to other antibiotic agents; Z88.5 Allergy status to narcotic agent
CPT/HCPCS: 36415; 71045; 71275; 80053; 83615; 83735; 83880; 84145; 84484; 85025; 85379; 85610; 85730; 86140; 93005; 99285; Q9967

== ENCOUNTER 2019-12-07 13:56 | Emergency (ER) | payer MEDICAID ==
[~2019-12-07] VITALS: Ht 167.6 cm; Wt 150.0 kg
[2019-12-07 14:25] LABS: CLARITY,URINE CLEAR (Clear); COLOR,URINE YELLOW (Yellow); GLUCOSE, URINE NEGATIVE (Neg); KETONES,URINE NEGATIVE (Neg); LEUKOCYTE ESTERASE ,URINE NEGATIVE (Neg); NITRITES, URINE NEGATIVE (Neg); OCCULT BLOOD,URINE TRACE-INTACT (Neg); PH,URINE 5.5 (4.8-8.0); PROTEIN,URINE NEGATIVE (Neg); UROBILINOGEN,URINE 0.2 E.U/dL (0.2-1.0)
[2019-12-07 14:26] LABS: UA COLLECTION TYPE CLN CATCH MIDSTREAM
[2019-12-07 14:29] LABS: BACTERIA,URINE FEW /HPF (Neg); MUCUS STRANDS FEW /LPF (Neg); RBC,URINE 0-2 /HPF (0-2); SQUAMOUS EPITHELIAL CELL,UR MODERATE /LPF (FEW); WBC,URINE 0-4 /HPF (0-4)
[2019-12-07] MEDS ORDERED: oxyCODONE/APAP 5-325mg tablet PO ONE (14:50)
[2019-12-07] MEDS ORDERED: ibuprofen tablet 400 MG TABLET PO ONE (14:50)
[2019-12-07 14:59] LABS: ALANINE AMINOTRANSFERASE 35 U/L (12-78); ALBUMIN 3.3 G/DL (3.4-5.0); ALBUMIN/GLOBULIN RATIO 0.7 (1.1-1.5); ALKALINE PHOSPHATASE 135 IU/L (46-116); ANION GAP 6 (8-16); ASPARTATE AMINO TRANSFERASE 27 U/L (10-37); BILIRUBIN,TOTAL 0.2 MG/DL (0.1-1.0); BLOOD UREA NITROGEN 15 MG/DL (7-18); CALCIUM 8.9 MG/DL (8.5-10.1); CHLORIDE 108 MMOL/L (99-107); CREATININE 0.88 MG/DL (0.40-0.90); GLUCOSE 67 MG/DL (70-104); POTASSIUM 3.9 MMOL/L (3.5-5.1); SODIUM 141 MMOL/L (135-145); TOTAL CARBON DIOXIDE 27.2 MMOL/L (24-32); TOTAL PROTEIN 7.8 G/DL (6.4-8.2); eGFR 67 ML/MIN
[2019-12-07 15:18] LABS: BASOPHILS # (AUTO) 0.1 X10'3 (0-0.2); BASOPHILS % (AUTO) 0.8 % (0-1); EOSINOPHILS # (AUTO) 0.1 X10'3 (0-0.9); EOSINOPHILS % (AUTO) 0.6 % (0-6); HEMATOCRIT 41.4 % (35.0-45.0); LYMPHOCYTES # (AUTO) 1.9 X10'3 (1.1-4.8); LYMPHOCYTES % (AUTO) 22.6 % (21-51); MEAN CORPUSCULAR HEMOGLOBIN 32.4 PG (27.0-31.0); MEAN CORPUSCULAR HGB CONC 33.8 g/dL (33.0-36.5); MEAN PLATELET VOLUME 7.5 FL (7.4-10.4); MONOCYTES # (AUTO) 0.8 X10'3 (0-0.9); MONOCYTES % (AUTO) 9.4 % (2-12); NEUTROPHILS # (AUTO) 5.6 X10'3 (1.8-7.7); NEUTROPHILS % (AUTO) 66.6 % (42-75); PLATELET COUNT 254 X10'3 (140-440); RED BLOOD COUNT 4.31 X10'6 (4.20-5.60); WHITE BLOOD COUNT 8.4 X10'3 (4.5-11.0)
[2019-12-07 16:23] VITALS: BP 196/90
== END 2019-12-07 16:00 | disposition home or self-care (01) ==
LOC: ER 13:56
DX: R10.11 Right upper quadrant pain (principal); I25.10 Atherosclerotic heart disease of native coronary artery without angina pectoris; I10 Essential (primary) hypertension; G62.9 Polyneuropathy, unspecified; G89.29 Other chronic pain; F41.9 Anxiety disorder, unspecified; F32.9 Major depressive disorder, single episode, unspecified; Z86.73 Personal history of transient ischemic attack (TIA), and cerebral infarction without residual deficits; Z86.69 Personal history of other diseases of the nervous system and sense organs; Z87.01 Personal history of pneumonia (recurrent); Z86.711 Personal history of pulmonary embolism; Z87.442 Personal history of urinary calculi; Z86.14 Personal history of Methicillin resistant Staphylococcus aureus infection; Z85.43 Personal history of malignant neoplasm of ovary; Z90.49 Acquired absence of other specified parts of digestive tract; Z90.710 Acquired absence of both cervix and uterus; Z98.890 Other specified postprocedural states; Z90.89 Acquired absence of other organs; Z56.0 Unemployment, unspecified; Z88.6 Allergy status to analgesic agent; Z88.1 Allergy status to other antibiotic agents; Z88.0 Allergy status to penicillin; Z88.2 Allergy status to sulfonamides; Z88.8 Allergy status to other drugs, medicaments and biological substances; Z79.899 Other long term (current) drug therapy
CPT/HCPCS: 36415; 80053; 81001; 85025; 99283

== ENCOUNTER 2019-12-08 22:16 | Emergency (ER) | payer MEDICAID ==
[~2019-12-08] VITALS: Ht 167.6 cm; Wt 150.0 kg
[2019-12-08 23:36] LABS: CLARITY,URINE CLEAR (Clear); COLOR,URINE YELLOW (Yellow); GLUCOSE, URINE NEGATIVE (Neg); KETONES,URINE NEGATIVE (Neg); LEUKOCYTE ESTERASE ,URINE NEGATIVE (Neg); NITRITES, URINE NEGATIVE (Neg); OCCULT BLOOD,URINE TRACE-INTACT (Neg); PH,URINE 5.5 (4.8-8.0); PROTEIN,URINE NEGATIVE (Neg); UROBILINOGEN,URINE 0.2 E.U/dL (0.2-1.0)
[2019-12-08 23:46] LABS: UA COLLECTION TYPE CLN CATCH MIDSTREAM
[2019-12-08 23:47] LABS: BACTERIA,URINE NONE SEEN /HPF (Neg); RBC,URINE 0-2 /HPF (0-2); SQUAMOUS EPITHELIAL CELL,UR FEW /LPF (FEW); WBC,URINE 0-4 /HPF (0-4)
[2019-12-09] MEDS ORDERED: FLO0.4C PO (00:17)
[2019-12-09] MEDS ORDERED: oxyCODONE IR 5mg (immed. release) tablet PO ONE (00:20)
[2019-12-09] MEDS ORDERED: tamsulosin 0.4mg capsule PO SCH (00:28)
[2019-12-09 00:39] VITALS: BP 151/72
== END 2019-12-09 00:41 | disposition home or self-care (01) ==
LOC: ER 22:16
DX: N23 Unspecified renal colic (principal); G89.29 Other chronic pain; I10 Essential (primary) hypertension; I25.10 Atherosclerotic heart disease of native coronary artery without angina pectoris; G62.9 Polyneuropathy, unspecified; F41.9 Anxiety disorder, unspecified; F32.9 Major depressive disorder, single episode, unspecified; Z86.73 Personal history of transient ischemic attack (TIA), and cerebral infarction without residual deficits; Z86.69 Personal history of other diseases of the nervous system and sense organs; Z87.01 Personal history of pneumonia (recurrent); Z86.711 Personal history of pulmonary embolism; Z87.442 Personal history of urinary calculi; Z86.14 Personal history of Methicillin resistant Staphylococcus aureus infection; Z85.43 Personal history of malignant neoplasm of ovary; Z90.49 Acquired absence of other specified parts of digestive tract; Z90.710 Acquired absence of both cervix and uterus; Z98.890 Other specified postprocedural states; Z90.89 Acquired absence of other organs; Z56.0 Unemployment, unspecified; Z88.6 Allergy status to analgesic agent; Z88.1 Allergy status to other antibiotic agents; Z88.8 Allergy status to other drugs, medicaments and biological substances; Z79.899 Other long term (current) drug therapy
CPT/HCPCS: 81001; 99283

== ENCOUNTER 2020-01-18 13:08 | Emergency (ER) | payer MEDICAID ==
[~2020-01-18] VITALS: Ht 165.1 cm; Wt 150.0 kg
[~2020-01-18 13:08] MED LIST changes: -NAPR-56 PO
[2020-01-18 14:20] LABS: BASOPHILS # (AUTO) 0.1 X10'3 (0-0.2); BASOPHILS % (AUTO) 0.6 % (0-1); EOSINOPHILS % (AUTO) 0 % (0-6); HEMATOCRIT 44.6 % (35.0-45.0); HEMOGLOBIN 14.9 g/dl (12.0-16.0); LYMPHOCYTES # (AUTO) 1.1 X10'3 (1.1-4.8); LYMPHOCYTES % (AUTO) 8.7 % (21-51); MEAN CORPUSCULAR HEMOGLOBIN 31.9 PG (27.0-31.0); MEAN CORPUSCULAR HGB CONC 33.3 g/dL (33.0-36.5); MEAN CORPUSCULAR VOLUME 95.7 FL (78-98); MEAN PLATELET VOLUME 7.8 FL (7.4-10.4); MONOCYTES # (AUTO) 0.6 X10'3 (0-0.9); MONOCYTES % (AUTO) 4.5 % (2-12); NEUTROPHILS # (AUTO) 11.3 X10'3 (1.8-7.7); NEUTROPHILS % (AUTO) 86.2 % (42-75); PLATELET COUNT 245 X10'3 (140-440); RED BLOOD COUNT 4.66 X10'6 (4.20-5.60); RED CELL DISTRIBUTION WIDTH 13.7 % (11.5-14.5); WHITE BLOOD COUNT 13.1 X10'3 (4.5-11.0)
[2020-01-18 14:21] LABS: CLARITY,URINE CLEAR (Clear); COLOR,URINE YELLOW (Yellow); GLUCOSE, URINE NEGATIVE (Neg); KETONES,URINE NEGATIVE (Neg); LEUKOCYTE ESTERASE ,URINE NEGATIVE (Neg); NITRITES, URINE NEGATIVE (Neg); OCCULT BLOOD,URINE NEGATIVE (Neg); PH,URINE 5.5 (4.8-8.0); PROTEIN,URINE NEGATIVE (Neg); UROBILINOGEN,URINE 0.2 E.U/dL (0.2-1.0)
[2020-01-18 14:22] LABS: UA COLLECTION TYPE CLN CATCH MIDSTREAM
[2020-01-18 14:35] LABS: ALANINE AMINOTRANSFERASE 32 U/L (12-78); ALBUMIN 3.4 G/DL (3.4-5.0); ALBUMIN/GLOBULIN RATIO 0.8 (1.1-1.5); ALKALINE PHOSPHATASE 135 IU/L (46-116); ANION GAP 9 (8-16); ASPARTATE AMINO TRANSFERASE 20 U/L (10-37); BILIRUBIN,TOTAL 0.4 MG/DL (0.1-1.0); BLOOD UREA NITROGEN 9 MG/DL (7-18); BUN/CREATININE RATIO 9.5 (6.6-38.0); CALCIUM 8.4 MG/DL (8.5-10.1); CHLORIDE 104 MMOL/L (99-107); CREATININE 0.95 MG/DL (0.40-0.90); GLUCOSE 112 MG/DL (70-104); LIPASE 103 U/L (73-393); POTASSIUM 3.8 MMOL/L (3.5-5.1); SODIUM 139 MMOL/L (135-145); TOTAL CARBON DIOXIDE 26.5 MMOL/L (24-32); TOTAL PROTEIN 7.6 G/DL (6.4-8.2); eGFR 61 ML/MIN
[2020-01-18] MEDS ORDERED: ketorolac tromethamine 15mg/ml inj. IM ONE (14:35)
[2020-01-18 14:52] LABS: C-REACTIVE PROTEIN 0.42 MG/DL (0.0-0.5)
[2020-01-18] MEDS ORDERED: morphine 4 MG/ML inj SYRINge IV ONE (16:05)
[2020-01-18] MEDS ORDERED: iohexol 300mg/ml 100ml inj. ONE ×2 (16:08→16:40)
[2020-01-18] MEDS ORDERED: hyDRALAzine 10mg tablet PO STA (16:13)
[2020-01-18 16:48] VITALS: BP 174/125
== END 2020-01-18 18:13 | disposition home or self-care (01) ==
LOC: ER 13:09
DX: R10.31 Right lower quadrant pain (principal); R11.0 Nausea; I25.10 Atherosclerotic heart disease of native coronary artery without angina pectoris; I10 Essential (primary) hypertension; G89.29 Other chronic pain; F41.9 Anxiety disorder, unspecified; F32.9 Major depressive disorder, single episode, unspecified; Z86.73 Personal history of transient ischemic attack (TIA), and cerebral infarction without residual deficits; Z86.69 Personal history of other diseases of the nervous system and sense organs; Z86.711 Personal history of pulmonary embolism; Z87.442 Personal history of urinary calculi; Z86.718 Personal history of other venous thrombosis and embolism; Z86.14 Personal history of Methicillin resistant Staphylococcus aureus infection; Z85.43 Personal history of malignant neoplasm of ovary; Z90.49 Acquired absence of other specified parts of digestive tract; Z90.710 Acquired absence of both cervix and uterus; Z98.890 Other specified postprocedural states; Z56.0 Unemployment, unspecified; Z88.6 Allergy status to analgesic agent; Z88.1 Allergy status to other antibiotic agents; Z88.8 Allergy status to other drugs, medicaments and biological substances; Z79.899 Other long term (current) drug therapy
CPT/HCPCS: 36415; 74177; 80053; 81003; 83690; 85025; 85651; 86140; 96372; 96374; 99285; J1885; J2270; Q9967

== ENCOUNTER 2020-01-23 23:11 | Emergency (ER) | payer MEDICAID ==
[~2020-01-23] VITALS: Ht 165.1 cm; Wt 150.0 kg
[2020-01-23 23:14] VITALS: BP 172/113
--- NOTE | 2020-01-23 23:33 | NUR ---
pt getting lab work down at this time. pt is a difficult stick.
[2020-01-23 23:45] LABS: BASOPHILS # (AUTO) 0.1 X10'3 (0-0.2); BASOPHILS % (AUTO) 0.6 % (0-1); EOSINOPHILS # (AUTO) 0.1 X10'3 (0-0.9); EOSINOPHILS % (AUTO) 0.9 % (0-6); HEMATOCRIT 40.6 % (35.0-45.0); HEMOGLOBIN 13.7 g/dl (12.0-16.0); LYMPHOCYTES # (AUTO) 2.2 X10'3 (1.1-4.8); LYMPHOCYTES % (AUTO) 20.9 % (21-51); MEAN CORPUSCULAR HEMOGLOBIN 32.1 PG (27.0-31.0); MEAN CORPUSCULAR HGB CONC 33.6 g/dL (33.0-36.5); MEAN CORPUSCULAR VOLUME 95.5 FL (78-98); MEAN PLATELET VOLUME 7.7 FL (7.4-10.4); MONOCYTES # (AUTO) 0.8 X10'3 (0-0.9); MONOCYTES % (AUTO) 7.7 % (2-12); NEUTROPHILS # (AUTO) 7.3 X10'3 (1.8-7.7); NEUTROPHILS % (AUTO) 69.9 % (42-75); PLATELET COUNT 223 X10'3 (140-440); RED BLOOD COUNT 4.25 X10'6 (4.20-5.60); RED CELL DISTRIBUTION WIDTH 13.7 % (11.5-14.5); WHITE BLOOD COUNT 10.4 X10'3 (4.5-11.0)
[2020-01-23 23:56] LABS: D-DIMER 0.53 MG/L FEU (0-0.50)
[2020-01-23 23:59] LABS: ALANINE AMINOTRANSFERASE 31 U/L (12-78); ALBUMIN 3.2 G/DL (3.4-5.0); ALBUMIN/GLOBULIN RATIO 0.8 (1.1-1.5); ALKALINE PHOSPHATASE 124 IU/L (46-116); ANION GAP 6 (8-16); ASPARTATE AMINO TRANSFERASE 18 U/L (10-37); BILIRUBIN,TOTAL 0.3 MG/DL (0.1-1.0); BLOOD UREA NITROGEN 15 MG/DL (7-18); BUN/CREATININE RATIO 15.2 (6.6-38.0); CALCIUM 8.4 MG/DL (8.5-10.1); CHLORIDE 108 MMOL/L (99-107); CREATININE 0.99 MG/DL (0.40-0.90); GLUCOSE 114 MG/DL (70-104); POTASSIUM 3.8 MMOL/L (3.5-5.1); SODIUM 142 MMOL/L (135-145); TOTAL CARBON DIOXIDE 27.7 MMOL/L (24-32); eGFR 58 ML/MIN
--- NOTE | 2020-01-24 00:05 | NUR ---
called outside to speak with as he is wanting to talk to someone "higher up" about our no visitor policy. explained our policy to the is he is aware that we are not allowing visitors at this time. advised him that we would keep him involved in the plan of care via phone provided the is ok with this. He seems fustrated but understands our policy and is agreeable to my explanation at this time.
[2020-01-24] MEDS ORDERED: LORazepam 1 MG tablet PO ONE (00:20)
[2020-01-24] MEDS ORDERED: furosemide 20MG tablet PO ONE (00:35)
--- NOTE | 2020-01-24 00:40 | NUR ---
pt states we're not helping her enough. she states her hands, feet and legs are swollen. I assessed pt and there does not appear to be any pitting edema. She is 96% on RA. She does have mild generalized swelling. pt states "i only eat salads and fruit! I don't like salt" i notified dr. roth, he ordered po lasix. pt refused lasix and ativan. she states, "i don't want to pee all night!" Pt was educated that it would help her swelling. She states "no, i dont want to pee, i'll take it in the morning!"Pt does not want to wait until 2:30 AM for a troponin level. Dr. Roth made aware, pt wants to leave AMA. pt refused to sign an AMA form.
== END 2020-01-24 00:47 | disposition left against medical advice (07) ==
LOC: ER 23:12
DX: R07.9 Chest pain, unspecified (principal); R60.9 Edema, unspecified; I25.10 Atherosclerotic heart disease of native coronary artery without angina pectoris; I10 Essential (primary) hypertension; F41.9 Anxiety disorder, unspecified; F32.9 Major depressive disorder, single episode, unspecified; G89.29 Other chronic pain; Z86.73 Personal history of transient ischemic attack (TIA), and cerebral infarction without residual deficits; Z87.01 Personal history of pneumonia (recurrent); Z86.69 Personal history of other diseases of the nervous system and sense organs; Z86.711 Personal history of pulmonary embolism; Z87.442 Personal history of urinary calculi; Z86.718 Personal history of other venous thrombosis and embolism; Z86.14 Personal history of Methicillin resistant Staphylococcus aureus infection; Z85.43 Personal history of malignant neoplasm of ovary; Z90.49 Acquired absence of other specified parts of digestive tract; Z90.710 Acquired absence of both cervix and uterus; Z98.890 Other specified postprocedural states; Z56.0 Unemployment, unspecified; Z88.6 Allergy status to analgesic agent; Z88.1 Allergy status to other antibiotic agents; Z88.8 Allergy status to other drugs, medicaments and biological substances; Z79.899 Other long term (current) drug therapy
CPT/HCPCS: 36415; 71045; 80053; 84484; 85025; 85379; 93005; 99285

== ENCOUNTER 2020-01-30 21:04 | Emergency (ER) | payer MEDICAID ==
[~2020-01-30] VITALS: Ht 165.1 cm; Wt 130.9 kg
[2020-01-30 21:19] VITALS: BP 128/90
--- NOTE | 2020-01-30 22:06 | NUR ---
pt is 54 yo female c/o left wrist pain s/p fall, +cms to left hand, xray done, waiting for evaluation by provider
== END 2020-01-30 22:57 | disposition home or self-care (01) ==
LOC: ER 21:06
DX: S60.212A Contusion of left wrist, initial encounter (principal); I25.10 Atherosclerotic heart disease of native coronary artery without angina pectoris; I10 Essential (primary) hypertension; G89.29 Other chronic pain; F41.9 Anxiety disorder, unspecified; F32.9 Major depressive disorder, single episode, unspecified; J45.909 Unspecified asthma, uncomplicated; Z86.69 Personal history of other diseases of the nervous system and sense organs; Z86.73 Personal history of transient ischemic attack (TIA), and cerebral infarction without residual deficits; Z87.01 Personal history of pneumonia (recurrent); Z86.711 Personal history of pulmonary embolism; Z87.442 Personal history of urinary calculi; Z86.718 Personal history of other venous thrombosis and embolism; Z86.14 Personal history of Methicillin resistant Staphylococcus aureus infection; Z85.43 Personal history of malignant neoplasm of ovary; Z90.49 Acquired absence of other specified parts of digestive tract; Z90.710 Acquired absence of both cervix and uterus; Z98.890 Other specified postprocedural states; Z90.89 Acquired absence of other organs; Z56.0 Unemployment, unspecified; Z88.6 Allergy status to analgesic agent; Z88.1 Allergy status to other antibiotic agents; Z88.8 Allergy status to other drugs, medicaments and biological substances; Z79.899 Other long term (current) drug therapy; W19.XXXA Unspecified fall, initial encounter; Y93.89 Activity, other specified; Y92.89 Other specified places as the place of occurrence of the external cause; Y99.8 Other external cause status
CPT/HCPCS: 73110; 99283

== ENCOUNTER 2020-02-26 09:16 | Emergency (ER) | payer MEDICAID ==
[~2020-02-26] VITALS: Ht 165.1 cm; Wt 154.7 kg
[2020-02-26] MEDS ORDERED: LIDOcaine 5% patch TP STA (11:09)
[2020-02-26] MEDS ORDERED: DICL100G15 TOP (11:18)
[2020-02-26] MEDS ORDERED: LIDO700A32 TOP (11:18)
[2020-02-26 11:38] VITALS: BP 171/86
== END 2020-02-26 11:42 | disposition home or self-care (01) ==
LOC: ER 09:16
DX: M25.561 Pain in right knee (principal); G89.29 Other chronic pain; G62.9 Polyneuropathy, unspecified; I25.10 Atherosclerotic heart disease of native coronary artery without angina pectoris; I10 Essential (primary) hypertension; J45.909 Unspecified asthma, uncomplicated; F41.9 Anxiety disorder, unspecified; F32.9 Major depressive disorder, single episode, unspecified; Z87.442 Personal history of urinary calculi; Z86.711 Personal history of pulmonary embolism; Z86.69 Personal history of other diseases of the nervous system and sense organs; Z86.73 Personal history of transient ischemic attack (TIA), and cerebral infarction without residual deficits; Z90.49 Acquired absence of other specified parts of digestive tract; Z90.710 Acquired absence of both cervix and uterus; Z90.89 Acquired absence of other organs; Z98.890 Other specified postprocedural states; Z56.0 Unemployment, unspecified; Z85.43 Personal history of malignant neoplasm of ovary; Z88.1 Allergy status to other antibiotic agents; Z88.5 Allergy status to narcotic agent; Z88.6 Allergy status to analgesic agent; Z79.899 Other long term (current) drug therapy
CPT/HCPCS: 99284

== ENCOUNTER 2020-03-30 17:54 | Emergency (ER) | payer MEDICAID ==
[~2020-03-30] VITALS: Ht 167.6 cm; Wt 150.0 kg
[~2020-03-30 17:54] MED LIST changes: +DICL100G15 TOP; +LIDO700A32 TOP
[2020-03-30 18:04] VITALS: BP 175/103
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
[2020-03-30 18:49] LABS: EOSINOPHILS # (AUTO) 0.1 X10'3 (0-0.9); HEMOGLOBIN 14.8 g/dl (12.0-16.0); MONOCYTES # (AUTO) 0.6 X10'3 (0-0.9)
[2020-03-30 18:51] LABS: BASOPHILS # (AUTO) 0.1 X10'3 (0-0.2); BASOPHILS % (AUTO) 0.7 % (0-1); EOSINOPHILS % (AUTO) 0.6 % (0-6); HEMATOCRIT 43.8 % (35.0-45.0); LYMPHOCYTES # (AUTO) 1.6 X10'3 (1.1-4.8); LYMPHOCYTES % (AUTO) 15.6 % (21-51); MEAN CORPUSCULAR HEMOGLOBIN 32.6 PG (27.0-31.0); MEAN CORPUSCULAR HGB CONC 33.8 g/dL (33.0-36.5); MEAN CORPUSCULAR VOLUME 96.3 FL (78-98); MEAN PLATELET VOLUME 8.1 FL (7.4-10.4); MONOCYTES % (AUTO) 6.2 % (2-12); NEUTROPHILS % (AUTO) 76.9 % (42-75); PLATELET COUNT 248 X10'3 (140-440); RED BLOOD COUNT 4.55 X10'6 (4.20-5.60); WHITE BLOOD COUNT 10.4 X10'3 (4.5-11.0)
[2020-03-30 18:59] LABS: ALANINE AMINOTRANSFERASE 34 U/L (12-78); ALBUMIN 3.6 G/DL (3.4-5.0); ALBUMIN/GLOBULIN RATIO 0.9 (1.1-1.5); ALKALINE PHOSPHATASE 127 IU/L (46-116); ANION GAP 10 (8-16); ASPARTATE AMINO TRANSFERASE 23 U/L (10-37); BILIRUBIN,TOTAL 0.4 MG/DL (0.1-1.0); BLOOD UREA NITROGEN 15 MG/DL (7-18); BUN/CREATININE RATIO 16.1 (6.6-38.0); CALCIUM 8.7 MG/DL (8.5-10.1); CHLORIDE 105 MMOL/L (99-107); CREATININE 0.93 MG/DL (0.40-0.90); GLUCOSE 154 MG/DL (70-104); POTASSIUM 3.7 MMOL/L (3.5-5.1); SODIUM 139 MMOL/L (135-145); TOTAL CARBON DIOXIDE 24.4 MMOL/L (24-32); TOTAL PROTEIN 7.8 G/DL (6.4-8.2); eGFR 62 ML/MIN
--- NOTE | 2020-03-30 19:00 | NUR ---
Pt sitting with feet propped up on another pt chair playing on cell phone. Pt has no signs of distress. Breathing even and unlabored.
== END 2020-03-30 19:29 | disposition home or self-care (01) ==
LOC: ER 17:55
DX: J06.9 Acute upper respiratory infection, unspecified (principal); Z20.828 Contact with and (suspected) exposure to other viral communicable diseases; I10 Essential (primary) hypertension; I25.10 Atherosclerotic heart disease of native coronary artery without angina pectoris; J45.909 Unspecified asthma, uncomplicated; M19.90 Unspecified osteoarthritis, unspecified site; F41.9 Anxiety disorder, unspecified; G89.29 Other chronic pain; F32.9 Major depressive disorder, single episode, unspecified; Z86.711 Personal history of pulmonary embolism; Z86.73 Personal history of transient ischemic attack (TIA), and cerebral infarction without residual deficits; Z86.69 Personal history of other diseases of the nervous system and sense organs; Z86.718 Personal history of other venous thrombosis and embolism; Z86.14 Personal history of Methicillin resistant Staphylococcus aureus infection; Z56.0 Unemployment, unspecified; Z88.1 Allergy status to other antibiotic agents; Z88.5 Allergy status to narcotic agent; Z88.8 Allergy status to other drugs, medicaments and biological substances
CPT/HCPCS: 36415; 71045; 80053; 83880; 84484; 85025; 87635; 93005; 99285

== ENCOUNTER 2020-06-13 13:36 | Emergency (ER) | payer MEDICAID ==
[~2020-06-13] VITALS: Ht 165.1 cm; Wt 154.6 kg
[2020-06-13 13:41] VITALS: BP 176/93
== END 2020-06-13 16:29 | disposition home or self-care (01) ==
LOC: ER 13:37
DX: S61.502A Unspecified open wound of left wrist, initial encounter (principal); I25.10 Atherosclerotic heart disease of native coronary artery without angina pectoris; I10 Essential (primary) hypertension; J45.909 Unspecified asthma, uncomplicated; M19.90 Unspecified osteoarthritis, unspecified site; F41.9 Anxiety disorder, unspecified; G89.29 Other chronic pain; F32.9 Major depressive disorder, single episode, unspecified; Z86.73 Personal history of transient ischemic attack (TIA), and cerebral infarction without residual deficits; Z86.69 Personal history of other diseases of the nervous system and sense organs; Z87.01 Personal history of pneumonia (recurrent); Z86.711 Personal history of pulmonary embolism; Z87.442 Personal history of urinary calculi; Z86.718 Personal history of other venous thrombosis and embolism; Z86.14 Personal history of Methicillin resistant Staphylococcus aureus infection; Z85.43 Personal history of malignant neoplasm of ovary; Z90.49 Acquired absence of other specified parts of digestive tract; Z90.710 Acquired absence of both cervix and uterus; Z98.890 Other specified postprocedural states; Z56.0 Unemployment, unspecified; Z88.1 Allergy status to other antibiotic agents; Z88.6 Allergy status to analgesic agent; Z88.8 Allergy status to other drugs, medicaments and biological substances; Z79.899 Other long term (current) drug therapy; X58.XXXA Exposure to other specified factors, initial encounter; Y93.89 Activity, other specified; Y92.89 Other specified places as the place of occurrence of the external cause; Y99.8 Other external cause status
CPT/HCPCS: 99281

== ENCOUNTER 2020-07-17 16:39 | Emergency (ER) | payer MEDICAID ==
[~2020-07-17] VITALS: Ht 165.1 cm; Wt 163.6 kg
[2020-07-17 16:47] VITALS: BP 145/101
[2020-07-17 17:26] LABS: BASOPHILS % (AUTO) 1.2 % (0-1); EOSINOPHILS % (AUTO) 0.1 % (0-6); HEMATOCRIT 45.2 % (35.0-45.0); HEMOGLOBIN 15.2 g/dl (12.0-16.0); LYMPHOCYTES # (AUTO) 1.6 X10'3 (1.1-4.8); LYMPHOCYTES % (AUTO) 37.2 % (21-51); MEAN CORPUSCULAR HEMOGLOBIN 31.7 PG (27.0-31.0); MEAN CORPUSCULAR HGB CONC 33.6 g/dL (33.0-36.5); MEAN CORPUSCULAR VOLUME 94.5 FL (78-98); MEAN PLATELET VOLUME 8.4 FL (7.4-10.4); MONOCYTES # (AUTO) 0.5 X10'3 (0-0.9); MONOCYTES % (AUTO) 12.4 % (2-12); NEUTROPHILS # (AUTO) 2.1 X10'3 (1.8-7.7); NEUTROPHILS % (AUTO) 49.1 % (42-75); PLATELET COUNT 167 X10'3 (140-440); RED BLOOD COUNT 4.79 X10'6 (4.20-5.60); RED CELL DISTRIBUTION WIDTH 13.8 % (11.5-14.5); WHITE BLOOD COUNT 4.2 X10'3 (4.5-11.0)
[2020-07-17 17:26] LABS: URINE HCG NEGATIVE (NEG)
[2020-07-17 17:34] LABS: CLARITY,URINE SLIGHTLY CLOUDY (Clear); COLOR,URINE YELLOW (Yellow); GLUCOSE, URINE NEGATIVE (Neg); KETONES,URINE NEGATIVE (Neg); LEUKOCYTE ESTERASE ,URINE TRACE (Neg); NITRITES, URINE NEGATIVE (Neg); OCCULT BLOOD,URINE NEGATIVE (Neg); PROTEIN,URINE NEGATIVE (Neg); UROBILINOGEN,URINE 0.2 E.U/dL (0.2-1.0)
[2020-07-17 17:36] LABS: UA COLLECTION TYPE CLN CATCH MIDSTREAM
[2020-07-17 17:39] LABS: ALANINE AMINOTRANSFERASE 46 U/L (12-78); ALBUMIN 3.4 G/DL (3.4-5.0); ALBUMIN/GLOBULIN RATIO 0.8 (1.1-1.5); ALKALINE PHOSPHATASE 127 IU/L (46-116); ANION GAP 10 (8-16); ASPARTATE AMINO TRANSFERASE 40 U/L (10-37); BILIRUBIN,TOTAL 0.3 MG/DL (0.1-1.0); BLOOD UREA NITROGEN 9 MG/DL (7-18); BUN/CREATININE RATIO 9.7 (6.6-38.0); CALCIUM 8.5 MG/DL (8.5-10.1); CHLORIDE 106 MMOL/L (99-107); CREATININE 0.93 MG/DL (0.40-0.90); GLUCOSE 128 MG/DL (70-104); LIPASE 69 U/L (73-393); POTASSIUM 3.7 MMOL/L (3.5-5.1); SODIUM 141 MMOL/L (135-145); TOTAL CARBON DIOXIDE 25.2 MMOL/L (24-32); TOTAL PROTEIN 7.7 G/DL (6.4-8.2); eGFR 62 ML/MIN
[2020-07-17 17:41] LABS: SQUAMOUS EPITHELIAL CELL,UR MANY /LPF (FEW)
[2020-07-17 17:43] LABS: BACTERIA,URINE 3+ /HPF (Neg); RBC,URINE 0-2 /HPF (0-2)
[2020-07-17] MEDS ORDERED: HYDR25SU32 RC ×2 (18:05→18:09)
[2020-07-17] MEDS ORDERED: PANT-47 PO ×2 (18:05→18:09)
[2020-07-17] MEDS ORDERED: BENZ-16 PO ×2 (18:05→18:09)
--- NOTE | 2020-07-17 18:15 | NUR ---
PT REFUSED COVID TEST
== END 2020-07-17 18:37 | disposition home or self-care (01) ==
LOC: ER 16:40
DX: U07.1 COVID-19 (principal); R10.13 Epigastric pain; R05 Cough; R11.10 Vomiting, unspecified; R50.9 Fever, unspecified; I25.10 Atherosclerotic heart disease of native coronary artery without angina pectoris; I10 Essential (primary) hypertension; J45.909 Unspecified asthma, uncomplicated; M19.90 Unspecified osteoarthritis, unspecified site; G89.29 Other chronic pain; F41.9 Anxiety disorder, unspecified; F32.9 Major depressive disorder, single episode, unspecified; Z86.73 Personal history of transient ischemic attack (TIA), and cerebral infarction without residual deficits; Z86.69 Personal history of other diseases of the nervous system and sense organs; Z87.01 Personal history of pneumonia (recurrent); Z86.711 Personal history of pulmonary embolism; Z87.442 Personal history of urinary calculi; Z86.718 Personal history of other venous thrombosis and embolism; Z86.14 Personal history of Methicillin resistant Staphylococcus aureus infection; Z85.43 Personal history of malignant neoplasm of ovary; Z90.49 Acquired absence of other specified parts of digestive tract; Z90.710 Acquired absence of both cervix and uterus; Z98.890 Other specified postprocedural states; Z56.0 Unemployment, unspecified; Z90.89 Acquired absence of other organs; Z88.1 Allergy status to other antibiotic agents; Z88.8 Allergy status to other drugs, medicaments and biological substances; Z88.6 Allergy status to analgesic agent; Z79.899 Other long term (current) drug therapy
CPT/HCPCS: 36415; 71045; 80053; 81001; 81025; 83690; 85025; 99284

== ENCOUNTER 2020-07-28 21:34 | Emergency (ER) | payer MEDICAID ==
[~2020-07-28] VITALS: Ht 167.6 cm; Wt 150.0 kg
[~2020-07-28 21:34] MED LIST changes: +BENZ-16 PO; +HYDR25SU32 RC
[2020-07-28 21:39] VITALS: BP 166/110
[2020-07-28] MEDS ORDERED: BENZ-16 PO (22:33)
[2020-07-28] MEDS ORDERED: benzonatate 100mg capsule PO ONE (22:35)
== END 2020-07-28 23:07 | disposition home or self-care (01) ==
LOC: ER 21:34
DX: U07.1 COVID-19 (principal); R05 Cough; Z56.0 Unemployment, unspecified; I25.10 Atherosclerotic heart disease of native coronary artery without angina pectoris; I10 Essential (primary) hypertension; J45.909 Unspecified asthma, uncomplicated; E07.9 Disorder of thyroid, unspecified; G89.29 Other chronic pain; M19.90 Unspecified osteoarthritis, unspecified site; Z86.718 Personal history of other venous thrombosis and embolism; Z86.14 Personal history of Methicillin resistant Staphylococcus aureus infection; Z90.49 Acquired absence of other specified parts of digestive tract; Z90.710 Acquired absence of both cervix and uterus; Z98.891 History of uterine scar from previous surgery; Z98.890 Other specified postprocedural states; Z85.43 Personal history of malignant neoplasm of ovary; Z86.73 Personal history of transient ischemic attack (TIA), and cerebral infarction without residual deficits; Z86.711 Personal history of pulmonary embolism; Z86.69 Personal history of other diseases of the nervous system and sense organs; Z88.2 Allergy status to sulfonamides; Z88.6 Allergy status to analgesic agent; Z88.8 Allergy status to other drugs, medicaments and biological substances; Z79.899 Other long term (current) drug therapy
CPT/HCPCS: 99283

== ENCOUNTER 2020-10-26 13:32 | Emergency (ER) | payer MEDICAID ==
[~2020-10-26] VITALS: Ht 165.1 cm; Wt 160.9 kg
[~2020-10-26 13:32] MED LIST changes: -BENZ-16 PO; -HCTZ25T PO; +HYDR25TA5 PO
[2020-10-26] MEDS ORDERED: morphine 4 MG/ML inj SYRINge IV PRN (14:40)
[2020-10-26] MEDS ORDERED: ketorolac trometh. 30mg/ml inj. IV ONE (14:40)
[2020-10-26] MEDS ORDERED: ondansetron/PF 4mg/2ml inj IV ONE (14:40)
[2020-10-26] MEDS ORDERED: normal saline 1000ML IV soln IVB ONE (14:40)
[2020-10-26 14:45] LABS: CLARITY,URINE CLOUDY (Clear); COLOR,URINE YELLOW (Yellow); GLUCOSE, URINE NEGATIVE (Neg); KETONES,URINE NEGATIVE (Neg); LEUKOCYTE ESTERASE ,URINE NEGATIVE (Neg); NITRITES, URINE NEGATIVE (Neg); OCCULT BLOOD,URINE NEGATIVE (Neg); PROTEIN,URINE NEGATIVE (Neg); UA COLLECTION TYPE OTHER; UROBILINOGEN,URINE 0.2 E.U/dL (0.2-1.0)
[2020-10-26 14:56] LABS: MUCUS STRANDS MANY /LPF (Neg); SQUAMOUS EPITHELIAL CELL,UR MANY /LPF (FEW)
[2020-10-26 14:58] LABS: BACTERIA,URINE 1+ /HPF (Neg)
[2020-10-26 14:59] LABS: CAL OXALATE CRYSTALS FEW /HPF (NEGATIVE); RBC,URINE 0-2 /HPF (0-2)
[2020-10-26 15:11] LABS: BASOPHILS # (AUTO) 0.1 X10'3 (0-0.2); BASOPHILS % (AUTO) 0.8 % (0-1); EOSINOPHILS # (AUTO) 0.1 X10'3 (0-0.9); EOSINOPHILS % (AUTO) 1.7 % (0-6); HEMATOCRIT 39.3 % (35.0-45.0); LYMPHOCYTES # (AUTO) 1.6 X10'3 (1.1-4.8); LYMPHOCYTES % (AUTO) 23.9 % (21-51); MEAN CORPUSCULAR HEMOGLOBIN 31.4 PG (27.0-31.0); MEAN CORPUSCULAR HGB CONC 33.1 g/dL (33.0-36.5); MEAN CORPUSCULAR VOLUME 94.9 FL (78-98); MONOCYTES # (AUTO) 0.7 X10'3 (0-0.9); MONOCYTES % (AUTO) 10.7 % (2-12); NEUTROPHILS # (AUTO) 4.2 X10'3 (1.8-7.7); NEUTROPHILS % (AUTO) 62.9 % (42-75); PLATELET COUNT 232 X10'3 (140-440); RED BLOOD COUNT 4.14 X10'6 (4.20-5.60); RED CELL DISTRIBUTION WIDTH 14.3 % (11.5-14.5); WHITE BLOOD COUNT 6.8 X10'3 (4.5-11.0)
[2020-10-26 15:24] LABS: ALANINE AMINOTRANSFERASE 48 U/L (12-78); ALBUMIN 3.2 G/DL (3.4-5.0); ALBUMIN/GLOBULIN RATIO 0.8 (1.1-1.5); ALKALINE PHOSPHATASE 125 IU/L (46-116); ANION GAP 6 (8-16); ASPARTATE AMINO TRANSFERASE 32 U/L (10-37); BILIRUBIN,TOTAL 0.3 MG/DL (0.1-1.0); BLOOD UREA NITROGEN 13 MG/DL (7-18); CALCIUM 8.3 MG/DL (8.5-10.1); CHLORIDE 105 MMOL/L (99-107); CREATININE 0.81 MG/DL (0.40-0.90); GLUCOSE 110 MG/DL (70-104); POTASSIUM 4.2 MMOL/L (3.5-5.1); SODIUM 138 MMOL/L (135-145); TOTAL CARBON DIOXIDE 27.3 MMOL/L (24-32); TOTAL PROTEIN 7.3 G/DL (6.4-8.2); eGFR 73 ML/MIN
[2020-10-26 16:50] VITALS: BP 108/93
== END 2020-10-26 16:50 | disposition home or self-care (01) ==
LOC: ER 13:35
DX: N39.0 Urinary tract infection, site not specified (principal); R30.0 Dysuria; R10.84 Generalized abdominal pain; F41.9 Anxiety disorder, unspecified; F32.9 Major depressive disorder, single episode, unspecified; Z86.73 Personal history of transient ischemic attack (TIA), and cerebral infarction without residual deficits; Z86.711 Personal history of pulmonary embolism; Z86.14 Personal history of Methicillin resistant Staphylococcus aureus infection; Z90.49 Acquired absence of other specified parts of digestive tract; Z90.710 Acquired absence of both cervix and uterus; Z98.890 Other specified postprocedural states; Z56.0 Unemployment, unspecified; Z90.89 Acquired absence of other organs; Z88.1 Allergy status to other antibiotic agents; Z88.6 Allergy status to analgesic agent; Z88.8 Allergy status to other drugs, medicaments and biological substances; Z79.899 Other long term (current) drug therapy
CPT/HCPCS: 36415; 74176; 80053; 81001; 85025; 96361; 96374; 96375; 99284; J1885; J2270; J2405; J7030

== ENCOUNTER 2020-11-23 14:40 | Emergency (ER) | payer MEDICAID ==
[~2020-11-23] VITALS: Ht 167.6 cm; Wt 167.3 kg
[2020-11-23] MEDS ORDERED: PRED20TA PO (14:53)
[2020-11-23] MEDS ORDERED: ALBU8HFA PO (14:53)
[2020-11-23] MEDS ORDERED: dexamethasone 4mg tablet PO ONE (15:15)
[2020-11-23] MEDS ORDERED: ipratropium/albuterol 3ml nebule NEB ONE (15:15)
[2020-11-23] MEDS ORDERED: AZIT250T83 PO (15:51)
[2020-11-23 16:15] VITALS: BP 129/116
== END 2020-11-23 16:14 | disposition home or self-care (01) ==
LOC: ER 14:41
DX: J45.901 Unspecified asthma with (acute) exacerbation (principal); J20.9 Acute bronchitis, unspecified; Z88.1 Allergy status to other antibiotic agents; Z88.6 Allergy status to analgesic agent; Z88.8 Allergy status to other drugs, medicaments and biological substances; Z79.2 Long term (current) use of antibiotics; Z79.899 Other long term (current) drug therapy; Z86.73 Personal history of transient ischemic attack (TIA), and cerebral infarction without residual deficits; Z86.718 Personal history of other venous thrombosis and embolism; Z86.711 Personal history of pulmonary embolism; Z90.49 Acquired absence of other specified parts of digestive tract; Z98.891 History of uterine scar from previous surgery; Z90.710 Acquired absence of both cervix and uterus; Z98.890 Other specified postprocedural states
CPT/HCPCS: 93005; 94640; 94760; 99283

== ENCOUNTER 2021-02-21 14:15 | Emergency (ER) | payer MEDICAID ==
[~2021-02-21] VITALS: Ht 167.6 cm; Wt 166.5 kg
[2021-02-21 14:23] VITALS: BP 156/92
[2021-02-21] MEDS ORDERED: oxyCODONE/APAP 10/325mg tablet PO ONE (15:05)
[2021-02-21 15:14] LABS: BASOPHILS % (AUTO) 0.5 % (0-1); EOSINOPHILS # (AUTO) 0.1 X10'3 (0-0.9); EOSINOPHILS % (AUTO) 1.3 % (0-6); HEMATOCRIT 40.5 % (35.0-45.0); HEMOGLOBIN 13.6 g/dl (12.0-16.0); LYMPHOCYTES # (AUTO) 1.7 X10'3 (1.1-4.8); LYMPHOCYTES % (AUTO) 19.8 % (21-51); MEAN CORPUSCULAR HEMOGLOBIN 32.2 PG (27.0-31.0); MEAN CORPUSCULAR HGB CONC 33.6 g/dL (33.0-36.5); MEAN CORPUSCULAR VOLUME 95.9 FL (78-98); MEAN PLATELET VOLUME 7.9 FL (7.4-10.4); MONOCYTES # (AUTO) 0.6 X10'3 (0-0.9); MONOCYTES % (AUTO) 7.5 % (2-12); NEUTROPHILS % (AUTO) 70.9 % (42-75); PLATELET COUNT 232 X10'3 (140-440); RED BLOOD COUNT 4.22 X10'6 (4.20-5.60); RED CELL DISTRIBUTION WIDTH 13.8 % (11.5-14.5); WHITE BLOOD COUNT 8.4 X10'3 (4.5-11.0)
--- NOTE | 2021-02-21 15:15 | NUR ---
VAS at bedside doing exam
[2021-02-21 15:27] LABS: ALANINE AMINOTRANSFERASE 62 U/L (12-78); ALBUMIN 3.1 G/DL (3.4-5.0); ALBUMIN/GLOBULIN RATIO 0.7 (1.1-1.5); ALKALINE PHOSPHATASE 106 IU/L (46-116); ANION GAP 9 (8-16); ASPARTATE AMINO TRANSFERASE 53 U/L (10-37); BILIRUBIN,TOTAL 0.3 MG/DL (0.1-1.0); BLOOD UREA NITROGEN 14 MG/DL (7-18); BUN/CREATININE RATIO 16.5 (6.6-38.0); CALCIUM 8.4 MG/DL (8.5-10.1); CHLORIDE 105 MMOL/L (99-107); CREATININE 0.85 MG/DL (0.40-0.90); GLUCOSE 120 MG/DL (70-104); POTASSIUM 3.6 MMOL/L (3.5-5.1); SODIUM 140 MMOL/L (135-145); TOTAL PROTEIN 7.4 G/DL (6.4-8.2); eGFR 69 ML/MIN
[2021-02-21] MEDS ORDERED: NEOM10DR45 RIGHT EAR (15:49)
== END 2021-02-21 16:32 | disposition home or self-care (01) ==
LOC: ER 14:16
DX: M13.862 Other specified arthritis, left knee (principal); H60.8X1 Other otitis externa, right ear; Z20.822 Contact with and (suspected) exposure to COVID-19; F41.9 Anxiety disorder, unspecified; F32.9 Major depressive disorder, single episode, unspecified; Z88.1 Allergy status to other antibiotic agents; Z88.5 Allergy status to narcotic agent; Z88.8 Allergy status to other drugs, medicaments and biological substances; Z79.899 Other long term (current) drug therapy
CPT/HCPCS: 36415; 73564; 80053; 84145; 85025; 85651; 93971; 99285

== ENCOUNTER 2021-03-21 18:18 | Emergency (ER) | payer MEDICAID ==
[~2021-03-21] VITALS: Ht 167.6 cm; Wt 163.6 kg
[2021-03-21 19:01] VITALS: BP 170/101
[2021-03-21 20:00] LABS: BASOPHILS # (AUTO) 0.1 X10'3 (0-0.2); BASOPHILS % (AUTO) 0.9 % (0-1); EOSINOPHILS # (AUTO) 0.1 X10'3 (0-0.9); EOSINOPHILS % (AUTO) 0.8 % (0-6); HEMOGLOBIN 14.5 g/dl (12.0-16.0); LYMPHOCYTES % (AUTO) 23.3 % (21-51); MEAN CORPUSCULAR HGB CONC 34.4 g/dL (33.0-36.5); MEAN CORPUSCULAR VOLUME 95.9 FL (78-98); MEAN PLATELET VOLUME 7.9 FL (7.4-10.4); MONOCYTES # (AUTO) 0.6 X10'3 (0-0.9); MONOCYTES % (AUTO) 7.3 % (2-12); NEUTROPHILS # (AUTO) 5.7 X10'3 (1.8-7.7); NEUTROPHILS % (AUTO) 67.7 % (42-75); PLATELET COUNT 252 X10'3 (140-440); RED BLOOD COUNT 4.38 X10'6 (4.20-5.60); WHITE BLOOD COUNT 8.4 X10'3 (4.5-11.0)
[2021-03-21 20:12] LABS: ALANINE AMINOTRANSFERASE 55 U/L (12-78); ALBUMIN 3.4 G/DL (3.4-5.0); ALBUMIN/GLOBULIN RATIO 0.7 (1.1-1.5); ALKALINE PHOSPHATASE 133 IU/L (46-116); ANION GAP 10 (8-16); ASPARTATE AMINO TRANSFERASE 39 U/L (10-37); BILIRUBIN,TOTAL 0.4 MG/DL (0.1-1.0); BLOOD UREA NITROGEN 9 MG/DL (7-18); BUN/CREATININE RATIO 9.4 (6.6-38.0); CALCIUM 8.7 MG/DL (8.5-10.1); CHLORIDE 105 MMOL/L (99-107); CREATININE 0.96 MG/DL (0.40-0.90); GLUCOSE 127 MG/DL (70-104); POTASSIUM 3.5 MMOL/L (3.5-5.1); SODIUM 144 MMOL/L (135-145); TOTAL CARBON DIOXIDE 29.1 MMOL/L (24-32); eGFR 60 ML/MIN
[2021-03-21 20:22] LABS: CREATINE KINASE 57 U/L (26-192); ETHANOL < 0.010 GM/DL (0.0-0.010)
[2021-03-21 22:24] LABS: CLARITY,URINE CLEAR (Clear); COLOR,URINE YELLOW (Yellow); GLUCOSE, URINE NEGATIVE (Neg); KETONES,URINE NEGATIVE (Neg); LEUKOCYTE ESTERASE ,URINE NEGATIVE (Neg); NITRITES, URINE NEGATIVE (Neg); OCCULT BLOOD,URINE TRACE-INTACT (Neg); PROTEIN,URINE NEGATIVE (Neg); UROBILINOGEN,URINE 0.2 E.U/dL (0.2-1.0)
[2021-03-21 22:25] LABS: UA COLLECTION TYPE CLN CATCH MIDSTREAM
[2021-03-21 22:31] LABS: BACTERIA,URINE NONE SEEN /HPF (Neg); RBC,URINE 0-2 /HPF (0-2); SQUAMOUS EPITHELIAL CELL,UR FEW /LPF (FEW); TRIPLE PHOSPHATE CRYST 1+ /HPF (NEGATIVE); WBC,URINE 0-4 /HPF (0-4)
--- NOTE | 2021-03-21 23:14 | NUR ---
PT REFUSED TO ANSWER QUESTIONS REGARDING HER REASON FOR COMING TO ER, CURRENT CONDITION AND REFUSED TO ALLOW VITALS TO BE TAKEN.
[2021-03-21] MEDS ORDERED: LIDO1ADH TOP (23:16)
== END 2021-03-21 23:23 | disposition home or self-care (01) ==
LOC: ER 18:19
DX: M25.562 Pain in left knee (principal); I25.10 Atherosclerotic heart disease of native coronary artery without angina pectoris; Z86.73 Personal history of transient ischemic attack (TIA), and cerebral infarction without residual deficits; Z90.710 Acquired absence of both cervix and uterus; Z90.49 Acquired absence of other specified parts of digestive tract; Z98.890 Other specified postprocedural states; Z56.0 Unemployment, unspecified; Z88.1 Allergy status to other antibiotic agents; Z88.4 Allergy status to anesthetic agent; Z88.8 Allergy status to other drugs, medicaments and biological substances; Z79.899 Other long term (current) drug therapy
CPT/HCPCS: 36415; 71045; 73564; 80053; 80320; 81001; 82550; 83735; 83874; 84484; 85025; 93005; 99285

== ENCOUNTER 2021-05-20 23:32 | Emergency (ER) | payer MEDICAID ==
[~2021-05-20] VITALS: Ht 167.6 cm; Wt 163.6 kg
[~2021-05-20 23:32] MED LIST changes: +LIDO1ADH TOP
[2021-05-21 01:06] LABS: BASOPHILS # (AUTO) 0.1 X10'3 (0-0.2); BASOPHILS % (AUTO) 0.9 % (0-1); EOSINOPHILS # (AUTO) 0.2 X10'3 (0-0.9); EOSINOPHILS % (AUTO) 2.9 % (0-6); HEMOGLOBIN 13.3 g/dl (12.0-16.0); LYMPHOCYTES # (AUTO) 2.2 X10'3 (1.1-4.8); LYMPHOCYTES % (AUTO) 30.3 % (21-51); MEAN CORPUSCULAR HEMOGLOBIN 32.7 PG (27.0-31.0); MEAN CORPUSCULAR VOLUME 96.2 FL (78-98); MEAN PLATELET VOLUME 8.3 FL (7.4-10.4); MONOCYTES # (AUTO) 0.6 X10'3 (0-0.9); MONOCYTES % (AUTO) 8.7 % (2-12); NEUTROPHILS # (AUTO) 4.1 X10'3 (1.8-7.7); NEUTROPHILS % (AUTO) 57.2 % (42-75); PLATELET COUNT 212 X10'3 (140-440); RED BLOOD COUNT 4.06 X10'6 (4.20-5.60); RED CELL DISTRIBUTION WIDTH 13.7 % (11.5-14.5); WHITE BLOOD COUNT 7.1 X10'3 (4.5-11.0)
[2021-05-21 01:10] LABS: D-DIMER 0.69 MG/L FEU (0-0.50)
[2021-05-21 01:13] LABS: ALANINE AMINOTRANSFERASE 57 U/L (12-78); ALBUMIN/GLOBULIN RATIO 0.7 (1.1-1.5); ALKALINE PHOSPHATASE 115 IU/L (46-116); ANION GAP 8 (8-16); ASPARTATE AMINO TRANSFERASE 45 U/L (10-37); BILIRUBIN,TOTAL 0.4 MG/DL (0.1-1.0); BLOOD UREA NITROGEN 12 MG/DL (7-18); BUN/CREATININE RATIO 9.1 (6.6-38.0); CALCIUM 8.5 MG/DL (8.5-10.1); CHLORIDE 106 MMOL/L (99-107); CREATININE 1.32 MG/DL (0.40-0.90); GLUCOSE 138 MG/DL (70-104); POTASSIUM 3.4 MMOL/L (3.5-5.1); SODIUM 143 MMOL/L (135-145); TOTAL CARBON DIOXIDE 28.9 MMOL/L (24-32); TOTAL PROTEIN 7.2 G/DL (6.4-8.2); eGFR 41 ML/MIN
[2021-05-21] MEDS ORDERED: orphenadrine citrate 60mg/2ml inj. IM ONE (01:50)
[2021-05-21] MEDS ORDERED: oxyCODONE/APAP 10/325mg tablet PO ONE (01:50)
[2021-05-21] MEDS ORDERED: ORPH100T2 PO (01:52)
[2021-05-21 02:25] VITALS: BP 131/68
== END 2021-05-21 02:27 | disposition home or self-care (01) ==
LOC: ER 23:33
DX: R10.30 Lower abdominal pain, unspecified (principal); I10 Essential (primary) hypertension; I25.10 Atherosclerotic heart disease of native coronary artery without angina pectoris; Z86.73 Personal history of transient ischemic attack (TIA), and cerebral infarction without residual deficits; R32 Unspecified urinary incontinence
CPT/HCPCS: 36415; 71045; 80053; 82308; 83880; 84484; 85025; 85379; 93005; 99285

== ENCOUNTER 2021-05-22 16:03 | Emergency (ER) | payer MEDICAID ==
[~2021-05-22] VITALS: Ht 167.6 cm; Wt 163.6 kg
[2021-05-22 16:46] LABS: CLARITY,URINE CLOUDY (Clear); COLOR,URINE YELLOW (Yellow); UA COLLECTION TYPE CLN CATCH MIDSTREAM
[2021-05-22 16:47] LABS: GLUCOSE, URINE NEGATIVE (Neg); KETONES,URINE NEGATIVE (Neg); LEUKOCYTE ESTERASE ,URINE NEGATIVE (Neg); NITRITES, URINE NEGATIVE (Neg); OCCULT BLOOD,URINE NEGATIVE (Neg); PROTEIN,URINE NEGATIVE (Neg); UROBILINOGEN,URINE 0.2 E.U/dL (0.2-1.0)
[2021-05-22 16:58] LABS: HYALINE CASTS 0-3 /LPF (NEGATIVE); MUCUS STRANDS FEW /LPF (Neg); SQUAMOUS EPITHELIAL CELL,UR MANY /LPF (FEW)
[2021-05-22 17:04] LABS: BACTERIA,URINE 1+ /HPF (Neg); RBC,URINE 0-2 /HPF (0-2); WBC,URINE 0-4 /HPF (0-4)
[2021-05-22] MEDS ORDERED: oxyCODONE/APAP 5-325mg tablet PO ONE (20:35)
[2021-05-22 20:52] VITALS: BP 152/84
== END 2021-05-22 20:53 | disposition home or self-care (01) ==
LOC: ER 16:04
DX: M62.830 Muscle spasm of back (principal); F41.9 Anxiety disorder, unspecified; I51.9 Heart disease, unspecified; F32.9 Major depressive disorder, single episode, unspecified; Z88.1 Allergy status to other antibiotic agents; Z88.5 Allergy status to narcotic agent; Z88.8 Allergy status to other drugs, medicaments and biological substances; Z79.899 Other long term (current) drug therapy
CPT/HCPCS: 81001; 99284

== ENCOUNTER 2021-06-13 21:24 | Emergency (ER) | payer MEDICAID | END 2021-06-13 22:34 | disposition left against medical advice (07) | LOC: ER 21:26 | DX: Z53.21 Procedure and treatment not carried out due to patient leaving prior to being seen by health care provider (principal) ==

== ENCOUNTER 2021-07-22 19:12 | Emergency (ER) | payer MEDICAID ==
[~2021-07-22] VITALS: Ht 167.6 cm; Wt 168.9 kg
[2021-07-22 19:32] VITALS: BP 207/110
[2021-07-22 21:08] LABS: CLARITY,URINE CLEAR (Clear); COLOR,URINE YELLOW (Yellow); GLUCOSE, URINE NEGATIVE (Neg); KETONES,URINE NEGATIVE (Neg); LEUKOCYTE ESTERASE ,URINE NEGATIVE (Neg); NITRITES, URINE NEGATIVE (Neg); OCCULT BLOOD,URINE NEGATIVE (Neg); PROTEIN,URINE NEGATIVE (Neg); UROBILINOGEN,URINE 0.2 E.U/dL (0.2-1.0)
[2021-07-22 21:15] LABS: UA COLLECTION TYPE CLN CATCH MIDSTREAM
--- NOTE | 2021-07-22 22:36 | NUR ---
PT ANGRY WHEN LAB CAME TO DRAW. PT STATED SHE JUST WANTED MEDS TO DEAL WITH HER ISSUES AND DID NOT WANT A WORKUP. PT STATED SHE DID NOT HAVE TIME. PT ELOPED. Addendum: 07/22/21 at 2241 by SILVANO MD NOTIFIED WHEN PT ELOPED.
== END 2021-07-22 22:30 | disposition left against medical advice (07) ==
LOC: ER 21:30
DX: R10.84 Generalized abdominal pain (principal); R35.0 Frequency of micturition; I25.10 Atherosclerotic heart disease of native coronary artery without angina pectoris; F41.9 Anxiety disorder, unspecified; F32.9 Major depressive disorder, single episode, unspecified; Z86.73 Personal history of transient ischemic attack (TIA), and cerebral infarction without residual deficits; Z87.442 Personal history of urinary calculi; Z87.440 Personal history of urinary (tract) infections; Z90.49 Acquired absence of other specified parts of digestive tract; Z90.710 Acquired absence of both cervix and uterus; Z56.0 Unemployment, unspecified; Z98.890 Other specified postprocedural states; Z90.89 Acquired absence of other organs; Z88.1 Allergy status to other antibiotic agents; Z88.6 Allergy status to analgesic agent; Z88.8 Allergy status to other drugs, medicaments and biological substances; Z79.899 Other long term (current) drug therapy
CPT/HCPCS: 81003; 99283

== ENCOUNTER 2021-10-26 17:25 | Emergency (ER) | payer MEDICAID ==
[~2021-10-26] VITALS: Ht 167.6 cm; Wt 163.6 kg
[2021-10-26 18:20] LABS: BASOPHILS % (AUTO) 0.6 % (0-1); EOSINOPHILS # (AUTO) 0.1 X10'3 (0-0.9); EOSINOPHILS % (AUTO) 1.1 % (0-6); HEMATOCRIT 40.7 % (35.0-45.0); HEMOGLOBIN 13.9 g/dl (12.0-16.0); LYMPHOCYTES # (AUTO) 1.6 X10'3 (1.1-4.8); LYMPHOCYTES % (AUTO) 18.2 % (21-51); MEAN CORPUSCULAR HEMOGLOBIN 32.1 PG (27.0-31.0); MEAN CORPUSCULAR HGB CONC 34.1 g/dL (33.0-36.5); MEAN CORPUSCULAR VOLUME 94.2 FL (78-98); MONOCYTES # (AUTO) 0.6 X10'3 (0-0.9); MONOCYTES % (AUTO) 6.9 % (2-12); NEUTROPHILS # (AUTO) 6.4 X10'3 (1.8-7.7); NEUTROPHILS % (AUTO) 73.2 % (42-75); PLATELET COUNT 222 X10'3 (140-440); RED BLOOD COUNT 4.32 X10'6 (4.20-5.60); RED CELL DISTRIBUTION WIDTH 13.7 % (11.5-14.5); WHITE BLOOD COUNT 8.7 X10'3 (4.5-11.0)
[2021-10-26 18:34] LABS: ALANINE AMINOTRANSFERASE 74 U/L (12-78); ALBUMIN 3.3 G/DL (3.4-5.0); ALBUMIN/GLOBULIN RATIO 0.8 (1.1-1.5); ALKALINE PHOSPHATASE 114 IU/L (46-116); ANION GAP 10 (8-16); ASPARTATE AMINO TRANSFERASE 66 U/L (10-37); BILIRUBIN,TOTAL 0.3 MG/DL (0.1-1.0); BLOOD UREA NITROGEN 11 MG/DL (7-18); CALCIUM 8.3 MG/DL (8.5-10.1); CHLORIDE 106 MMOL/L (99-107); CREATININE 0.92 MG/DL (0.40-0.90); GLUCOSE 158 MG/DL (70-104); POTASSIUM 3.4 MMOL/L (3.5-5.1); SODIUM 139 MMOL/L (135-145); TOTAL CARBON DIOXIDE 22.6 MMOL/L (24-32); TOTAL PROTEIN 7.6 G/DL (6.4-8.2); eGFR 63 ML/MIN
[2021-10-26 19:20] VITALS: BP 141/98
== END 2021-10-26 20:43 | disposition home or self-care (01) ==
LOC: ER 17:26
DX: R06.02 Shortness of breath (principal); R05.3 Chronic cough; Z86.16 Personal history of COVID-19
CPT/HCPCS: 36415; 71045; 80053; 84484; 85025; 93005; 99285

== ENCOUNTER 2022-01-01 05:58 | Emergency (ER) | payer MEDICAID ==
[~2022-01-01] VITALS: Ht 167.6 cm; Wt 169.1 kg
[2022-01-01 06:49] LABS: CLARITY,URINE CLEAR (Clear); COLOR,URINE YELLOW (Yellow); GLUCOSE, URINE NEGATIVE (Neg); KETONES,URINE NEGATIVE (Neg); LEUKOCYTE ESTERASE ,URINE NEGATIVE (Neg); NITRITES, URINE NEGATIVE (Neg); OCCULT BLOOD,URINE NEGATIVE (Neg); PH,URINE 6.5 (4.8-8.0); PROTEIN,URINE NEGATIVE (Neg); UROBILINOGEN,URINE 0.2 E.U/dL (0.2-1.0)
[2022-01-01 07:07] LABS: UA COLLECTION TYPE CLN CATCH MIDSTREAM
[2022-01-01] MEDS ORDERED: normal saline 1000ML IV soln IVB ONE ×2 (07:10→07:25)
[2022-01-01] MEDS ORDERED: ketorolac tromethamine 15mg/ml inj. IV ONE (07:25)
[2022-01-01 07:34] LABS: BASOPHILS # (AUTO) 0.1 X10'3 (0-0.2); BASOPHILS % (AUTO) 0.9 % (0-1); EOSINOPHILS # (AUTO) 0.1 X10'3 (0-0.9); EOSINOPHILS % (AUTO) 1.8 % (0-6); HEMATOCRIT 41.3 % (35.0-45.0); HEMOGLOBIN 13.7 g/dl (12.0-16.0); LYMPHOCYTES # (AUTO) 1.7 X10'3 (1.1-4.8); LYMPHOCYTES % (AUTO) 20.7 % (21-51); MEAN CORPUSCULAR HEMOGLOBIN 32.3 PG (27.0-31.0); MEAN CORPUSCULAR HGB CONC 33.3 g/dL (33.0-36.5); MEAN CORPUSCULAR VOLUME 97.1 FL (78-98); MEAN PLATELET VOLUME 8.3 FL (7.4-10.4); MONOCYTES # (AUTO) 0.7 X10'3 (0-0.9); NEUTROPHILS # (AUTO) 5.6 X10'3 (1.8-7.7); NEUTROPHILS % (AUTO) 68.6 % (42-75); PLATELET COUNT 207 X10'3 (140-440); RED BLOOD COUNT 4.25 X10'6 (4.20-5.60); RED CELL DISTRIBUTION WIDTH 14.2 % (11.5-14.5); WHITE BLOOD COUNT 8.1 X10'3 (4.5-11.0)
[2022-01-01 07:52] LABS: ALANINE AMINOTRANSFERASE 60 U/L (12-78); ALBUMIN 3.1 G/DL (3.4-5.0); ALBUMIN/GLOBULIN RATIO 0.7 (1.1-1.5); ALKALINE PHOSPHATASE 114 IU/L (46-116); ANION GAP 4 (8-16); ASPARTATE AMINO TRANSFERASE 47 U/L (10-37); BILIRUBIN,TOTAL 0.5 MG/DL (0.1-1.0); BLOOD UREA NITROGEN 14 MG/DL (7-18); BUN/CREATININE RATIO 15.4 (6.6-38.0); CALCIUM 8.7 MG/DL (8.5-10.1); CHLORIDE 108 MMOL/L (99-107); CREATININE 0.91 MG/DL (0.40-0.90); GLUCOSE 126 MG/DL (70-104); LIPASE 66 U/L (73-393); MAGNESIUM 1.8 MG/DL (1.5-2.4); POTASSIUM 5.1 MMOL/L (3.5-5.1); SODIUM 140 MMOL/L (135-145); TOTAL CARBON DIOXIDE 27.8 MMOL/L (24-32); TOTAL PROTEIN 7.7 G/DL (6.4-8.2); eGFR 64 ML/MIN
[2022-01-01] MEDS ORDERED: dicyclomine 10 MG capsule PO ONE (09:40)
[2022-01-01] MEDS ORDERED: ondansetron/PF 4mg/2ml inj IV ONE (09:40)
[2022-01-01] MEDS ORDERED: CefTRIAXone 2gm/NS 100ml IVPB 100 ML IV ONE (10:40)
[2022-01-01] MEDS ORDERED: normal saline 1000ML IV soln IV ONE (10:40)
[2022-01-01] MEDS ORDERED: methylPREDNISolone sod succ 125mg/2ml vial IV ONE (10:45)
[2022-01-01] MEDS ORDERED: ipratropium/albuterol 3ml nebule NEB ONE (10:45)
[2022-01-01 11:18] VITALS: BP 144/82
[2022-01-02] MEDS ORDERED: azithromycin/NS 500mg/250ml 250 ML IV SCH (08:00)
[2022-01-02] MEDS ORDERED: MIRA50TA PO (14:34)
[2022-01-02] MEDS ORDERED: ATOR40TA72 PO (14:34)
[2022-01-02] MEDS ORDERED: ALBU2.5V10 IH (14:34)
[2022-01-02] MEDS ORDERED: ERGO500056 PO (14:34)
== END 2022-01-01 11:31 | disposition home or self-care (01) ==
LOC: ER 05:59
DX: R10.84 Generalized abdominal pain (principal); R53.83 Other fatigue; R11.0 Nausea; I25.10 Atherosclerotic heart disease of native coronary artery without angina pectoris; F41.9 Anxiety disorder, unspecified; F32.A Depression, unspecified; Z86.73 Personal history of transient ischemic attack (TIA), and cerebral infarction without residual deficits; Z87.442 Personal history of urinary calculi; Z87.440 Personal history of urinary (tract) infections; Z90.49 Acquired absence of other specified parts of digestive tract; Z90.710 Acquired absence of both cervix and uterus; Z98.890 Other specified postprocedural states; Z56.0 Unemployment, unspecified; Z88.1 Allergy status to other antibiotic agents; Z88.6 Allergy status to analgesic agent; Z88.8 Allergy status to other drugs, medicaments and biological substances; Z79.899 Other long term (current) drug therapy
CPT/HCPCS: 36415; 80053; 81003; 83690; 83735; 85025; 96361; 96374; 96375; 99284; J1885; J2405; J7030

== ENCOUNTER 2022-01-02 04:07 | Inpatient (IN) | payer MEDICAID ==
[~2022-01-02] VITALS: Ht 165.1 cm; Wt 172.3 kg
--- NOTE | 2022-01-02 05:00 | NUR ---
STROKE NURSE, GIO RN AT BEDSIDE EVALUATING PT WITH TELENEUROLOGY ON THE VIDEO CHAT. NEUROLOGIST STATES NO NEED FOR CTA AND PT IS NOT A CANDIDATE FOR TPN. DENIA POWERS STROKE NURSE STATES PT DOES NOT NEED ANY INTERVENTIONS AT THIS TIME AND THERE IS NO NEED FOR NEURO ASSESSMENTS FREQUENT Q15 MIN.
[2022-01-02] MEDS ORDERED: aspirin 325mg tablet PO ONE (05:20)
[2022-01-02 05:35] LABS: BASOPHILS # (AUTO) 0.1 X10'3 (0-0.2); BASOPHILS % (AUTO) 0.7 % (0-1); EOSINOPHILS # (AUTO) 0.2 X10'3 (0-0.9); EOSINOPHILS % (AUTO) 2.2 % (0-6); HEMATOCRIT 38.9 % (35.0-45.0); HEMOGLOBIN 13.1 g/dl (12.0-16.0); LYMPHOCYTES % (AUTO) 26.4 % (21-51); MEAN CORPUSCULAR HEMOGLOBIN 32.4 PG (27.0-31.0); MEAN CORPUSCULAR HGB CONC 33.7 g/dL (33.0-36.5); MEAN PLATELET VOLUME 8.1 FL (7.4-10.4); MONOCYTES # (AUTO) 0.6 X10'3 (0-0.9); MONOCYTES % (AUTO) 8.7 % (2-12); NEUTROPHILS # (AUTO) 4.6 X10'3 (1.8-7.7); PLATELET COUNT 184 X10'3 (140-440); RED BLOOD COUNT 4.05 X10'6 (4.20-5.60); RED CELL DISTRIBUTION WIDTH 13.9 % (11.5-14.5); WHITE BLOOD COUNT 7.5 X10'3 (4.5-11.0)
[2022-01-02 05:46] LABS: ALANINE AMINOTRANSFERASE 49 U/L (12-78); ALBUMIN/GLOBULIN RATIO 0.7 (1.1-1.5); ALKALINE PHOSPHATASE 102 IU/L (46-116); ANION GAP 7 (8-16); ASPARTATE AMINO TRANSFERASE 42 U/L (10-37); BILIRUBIN,TOTAL 0.6 MG/DL (0.1-1.0); BLOOD UREA NITROGEN 14 MG/DL (7-18); BUN/CREATININE RATIO 12.1 (6.6-38.0); CALCIUM 8.4 MG/DL (8.5-10.1); CHLORIDE 107 MMOL/L (99-107); CREATININE 1.16 MG/DL (0.40-0.90); GLUCOSE 118 MG/DL (70-104); SODIUM 141 MMOL/L (135-145); TOTAL CARBON DIOXIDE 27.1 MMOL/L (24-32); TOTAL PROTEIN 7.3 G/DL (6.4-8.2); eGFR 48 ML/MIN
[2022-01-02 05:52] LABS: APTT 22 SECONDS (22-32)
[2022-01-02] MEDS ORDERED: PERFLUTREN PROTEIN-A MICROSPHR (Optison) 0.22 MG/ML 3ML VIAL IV ONE (13:55)
[2022-01-02] MEDS ORDERED: regadenoson 0.4mg/5ml syringe IV PRN (13:55)
[2022-01-02] MEDS ORDERED: diphenhydrAMINE 25mg capsule PO PRN (13:55)
[2022-01-02] MEDS ORDERED: acetaminophen 325mg tablet PO PRN ×2 (13:55)
[2022-01-02] MEDS ORDERED: potassium CL 10mEq/100ml bag 100 ML IV PRN (13:55)
[2022-01-02] MEDS ORDERED: nitroGLYCERIN 0.4mg SUBLingual tab SL PRN (13:55)
[2022-01-02] MEDS ORDERED: metoprolol tartrate 1mg/ml inj IV PRN (13:55)
[2022-01-02] MEDS ORDERED: magnesium 2GM in 50ml NS 50 ML IV PRN (13:55)
[2022-01-02] MEDS ORDERED: magnesium Cl slow-release 64mg tablet PO PRN (13:55)
[2022-01-02] MEDS ORDERED: mag hydrox/Alum hydrox/simeth 30ml oral suspension PO PRN (13:55)
[2022-01-02] MEDS ORDERED: aminophylline 250mg/10ml inj. IV PRN (13:55)
[2022-01-02] MEDS ORDERED: acetaminophen 650mg rectal suppository RC PRN (13:55)
[2022-01-02] MEDS ORDERED: magnesium 4gm in 100ml NS 100 ML IV PRN (13:55)
[2022-01-02] MEDS: normal saline 1000ml 1,000 ML IV SCH (13:55)
[2022-01-02] MEDS ORDERED: magnesium hydroxide 30ml (MOM) UD suspension PO PRN (13:55)
[2022-01-02] MEDS ORDERED: POTASSIUM BICARB 20meq eff tab 20 MEQ TABLET.EFF PO PRN ×2 (13:55)
[2022-01-02] MEDS ORDERED: bisacodyl 10mg suppository rectal RC PRN (13:55)
[2022-01-02] MEDS ORDERED: ondansetron/PF 4mg/2ml inj IV PRN (13:55)
[2022-01-02 14:25] LABS: CHOL/HDL RATIO 4.4 (0.00-4.99); CHOLESTEROL 209 MG/DL (0-200); HDL CHOLESTEROL 48 MG/DL (35-60); HEMOGLOBIN A1C 6.1 % (4.5-6.2); LDL CHOLESTEROL 148 MG/DL (50-100); TRIGLYCERIDES 79 MG/DL (20-135)
[2022-01-02] MEDS ORDERED: ATOR40TA72 PO (14:34)
[2022-01-02] MEDS ORDERED: MIRA50TA PO (14:34)
[2022-01-02] MEDS ORDERED: ERGO500056 PO (14:34)
[2022-01-02] MEDS ORDERED: ALBU2.5V10 IH (14:34)
--- NOTE | 2022-01-02 18:30 | NUR ---
PT. WITH NUC. MED.
--- NOTE | 2022-01-02 19:03 | NUR ---
BACK FROM [employer] [facility]. NO ISSUES.
[2022-01-02] MEDS: heparin, porcine 5000 units/ml vial SQ SCH (19:31)
[2022-01-02] MEDS: docusate sod 100mg capsule PO SCH (20:00)
[2022-01-02] MEDS: K and/or MAG REPLACEMENT MC SCH (20:00)
[2022-01-02 21:49] VITALS: BP 163/84
[2022-01-02 23:00] VITALS: BP 141/74
--- NOTE | 2022-01-02 23:21 | NUR ---
2300: Pt c/o chest pain rated 8/10. EKG completed per protocol. Vitals read BP-163/84, P-74, O2-95 on 3L/O2. Notified MD Garcia and advised to administer PRN nitro per order. This nurse will Continue to monitor pt. 2320:Pt voiced reduction in pain. BP read 141/73. Pt is sleeping comfortably in bed at this time. Will continue to monitor.
[2022-01-03] VITALS (13 sets, daily range): BP systolic 133–165; BP diastolic 65–99
[2022-01-03] MEDS: heparin, porcine 5000 units/ml vial SQ SCH ×4 (00:25→23:54)
--- NOTE | 2022-01-03 06:31 | NUR ---
0530: Partial bed bath completed. Bed linen and gown changed. Made comfortably in bed.
--- NOTE | 2022-01-03 06:37 | NUR ---
Problems reprioritized. Patient report given, Mukesh LOZA, questions answered & plan of care reviewed with .
[2022-01-03] MEDS: aspirin 325mg tablet, delayed-release (Ecotrin) PO SCH (07:33)
[2022-01-03] MEDS: atorvastatin 10mg tablet PO SCH (07:33)
[2022-01-03] MEDS: docusate sod 100mg capsule PO SCH ×2 (07:33→20:00)
--- NOTE | 2022-01-03 07:34 | NUR ---
Pt refused AM Rx as well as all commonplace IVFs, Pt agreed to accept IVPB-like Rx such as Abx or mineral/enzyme replacement; Risks and benefits discussed and Pt acknowledged
[2022-01-03] MEDS: K and/or MAG REPLACEMENT MC SCH ×2 (08:00→20:00)
[2022-01-03] MEDS ORDERED: aminophylline 500mg/20ml vial ONE (09:27)
[2022-01-03] MEDS: normal saline 1000ml 1,000 ML IV SCH (09:55)
[2022-01-03 11:46] LABS: BASOPHILS % (AUTO) 0.4 % (0-1); EOSINOPHILS # (AUTO) 0.2 X10'3 (0-0.9); EOSINOPHILS % (AUTO) 2.5 % (0-6); HEMATOCRIT 39.4 % (35.0-45.0); HEMOGLOBIN 13.2 g/dl (12.0-16.0); LYMPHOCYTES # (AUTO) 1.8 X10'3 (1.1-4.8); LYMPHOCYTES % (AUTO) 24.9 % (21-51); MEAN CORPUSCULAR HEMOGLOBIN 32.4 PG (27.0-31.0); MEAN CORPUSCULAR HGB CONC 33.4 g/dL (33.0-36.5); MEAN PLATELET VOLUME 8.1 FL (7.4-10.4); MONOCYTES # (AUTO) 0.5 X10'3 (0-0.9); MONOCYTES % (AUTO) 7.2 % (2-12); NEUTROPHILS # (AUTO) 4.6 X10'3 (1.8-7.7); PLATELET COUNT 200 X10'3 (140-440); RED BLOOD COUNT 4.07 X10'6 (4.20-5.60); RED CELL DISTRIBUTION WIDTH 13.8 % (11.5-14.5); WHITE BLOOD COUNT 7.1 X10'3 (4.5-11.0)
--- NOTE | 2022-01-03 11:58 | NUR ---
florentin Fernández RN RE: Kimberley Melvin RM# [id number] Pt c/o pain Only has Tylenol 650mg, tried, not effective. Please review. Thank you. ... message sent via online messaging system immediately prior to this entry
[2022-01-03 11:59] LABS: ALANINE AMINOTRANSFERASE 56 U/L (12-78); ALBUMIN/GLOBULIN RATIO 0.7 (1.1-1.5); ALKALINE PHOSPHATASE 98 IU/L (46-116); ANION GAP 8 (8-16); ASPARTATE AMINO TRANSFERASE 41 U/L (10-37); BILIRUBIN,TOTAL 0.6 MG/DL (0.1-1.0); BLOOD UREA NITROGEN 12 MG/DL (7-18); BUN/CREATININE RATIO 14.8 (6.6-38.0); CALCIUM 8.4 MG/DL (8.5-10.1); CHLORIDE 107 MMOL/L (99-107); CHOL/HDL RATIO 4.7 (0.00-4.99); CHOLESTEROL 208 MG/DL (0-200); CREATININE 0.81 MG/DL (0.40-0.90); GLUCOSE 122 MG/DL (70-104); HDL CHOLESTEROL 44 MG/DL (35-60); LDL CHOLESTEROL 139 MG/DL (50-100); MAGNESIUM 1.8 MG/DL (1.5-2.4); PHOSPHORUS 2.9 MG/DL (2.3-4.5); SODIUM 142 MMOL/L (135-145); TOTAL CARBON DIOXIDE 26.8 MMOL/L (24-32); TOTAL PROTEIN 7.1 G/DL (6.4-8.2); TRIGLYCERIDES 75 MG/DL (20-135); eGFR 73 ML/MIN
--- NOTE | 2022-01-03 15:22 | NUR ---
Message: santiago Fernández RN RE: Kimberley Melvin RM# [id number] Please review Pt's pain Rx. Only has Tylenol available. Requesting stronger pain Rx. May Pt return to her original diet? Please advise. Thank you. Second attempt. ... message sent using online messaging system immediately prior to this entry
[2022-01-03] MEDS: oxyCODONE/APAP 10/325mg tablet PO PRN (17:36)
--- NOTE | 2022-01-03 23:55 | NUR ---
Pt refused heparin per ordered, education given. Med returned to brian. Addendum: 01/04/22 at 0125 by Vy Mclaughlin - [employer] RN 0000: Pt is on 2L, O2 via NC. Pt stated she uses 2L O2 at home at the hour of sleep. Pt educated to use the call light button and call for help when needed.
[2022-01-04 00:03] VITALS: BP 133/57
[2022-01-04] MEDS: oxyCODONE/APAP 10/325mg tablet PO PRN ×3 (00:03→14:30)
[2022-01-04 03:34] VITALS: BP 119/55
[2022-01-04] MEDS: normal saline 1000ml 1,000 ML IV SCH (05:55)
[2022-01-04 06:00] VITALS: BP 145/83
[2022-01-04 06:06] LABS: BASOPHILS % (AUTO) 0.3 % (0-1); EOSINOPHILS # (AUTO) 0.2 X10'3 (0-0.9); EOSINOPHILS % (AUTO) 2.8 % (0-6); HEMATOCRIT 38.8 % (35.0-45.0); HEMOGLOBIN 13.1 g/dl (12.0-16.0); LYMPHOCYTES # (AUTO) 1.5 X10'3 (1.1-4.8); LYMPHOCYTES % (AUTO) 22.5 % (21-51); MEAN CORPUSCULAR HEMOGLOBIN 32.6 PG (27.0-31.0); MEAN CORPUSCULAR HGB CONC 33.8 g/dL (33.0-36.5); MEAN CORPUSCULAR VOLUME 96.6 FL (78-98); MEAN PLATELET VOLUME 8.2 FL (7.4-10.4); MONOCYTES # (AUTO) 0.6 X10'3 (0-0.9); MONOCYTES % (AUTO) 9.4 % (2-12); NEUTROPHILS # (AUTO) 4.4 X10'3 (1.8-7.7); PLATELET COUNT 202 X10'3 (140-440); RED BLOOD COUNT 4.02 X10'6 (4.20-5.60); RED CELL DISTRIBUTION WIDTH 13.8 % (11.5-14.5); WHITE BLOOD COUNT 6.8 X10'3 (4.5-11.0)
[2022-01-04 06:21] LABS: ALANINE AMINOTRANSFERASE 44 U/L (12-78); ALBUMIN/GLOBULIN RATIO 0.7 (1.1-1.5); ALKALINE PHOSPHATASE 98 IU/L (46-116); ANION GAP 8 (8-16); ASPARTATE AMINO TRANSFERASE 36 U/L (10-37); BILIRUBIN,TOTAL 0.4 MG/DL (0.1-1.0); BLOOD UREA NITROGEN 13 MG/DL (7-18); BUN/CREATININE RATIO 14.6 (6.6-38.0); CALCIUM 8.7 MG/DL (8.5-10.1); CHLORIDE 105 MMOL/L (99-107); CREATININE 0.89 MG/DL (0.40-0.90); GLUCOSE 139 MG/DL (70-104); MAGNESIUM 1.8 MG/DL (1.5-2.4); PHOSPHORUS 3.8 MG/DL (2.3-4.5); SODIUM 138 MMOL/L (135-145); TOTAL CARBON DIOXIDE 25.5 MMOL/L (24-32); TOTAL PROTEIN 7.2 G/DL (6.4-8.2); eGFR 65 ML/MIN
--- NOTE | 2022-01-04 06:55 | NUR ---
Problems reprioritized. Patient report given, KAREN Gomez, questions answered & plan of care reviewed with .
[2022-01-04] MEDS: aspirin 325mg tablet, delayed-release (Ecotrin) PO SCH (07:42)
[2022-01-04] MEDS: atorvastatin 10mg tablet PO SCH (07:43)
[2022-01-04] MEDS: docusate sod 100mg capsule PO SCH ×2 (07:43→20:00)
[2022-01-04] MEDS: heparin, porcine 5000 units/ml vial SQ SCH ×2 (07:47→16:21)
[2022-01-04] MEDS: K and/or MAG REPLACEMENT MC SCH ×2 (08:00→20:00)
--- NOTE | 2022-01-04 08:28 | NUR ---
Patient in room PCU 3013. I have received report from DENIA Mcclellan and had the opportunity to ask questions and assume patient care.
[2022-01-04 13:00] VITALS: BP 144/77
[2022-01-04 18:00] VITALS: BP 125/75
--- NOTE | 2022-01-04 18:27 | NUR ---
Problems reprioritized. Patient report given, questions answered & plan of care reviewed with DENIA Giraldo.
--- NOTE | 2022-01-04 18:28 | NUR ---
Patient in room U 3013. I have received report from DENIA Gomez and had the opportunity to ask questions and assume patient care. Patient A&O x4, sitting up in bed and just finished dinner.
[2022-01-05] MEDS: heparin, porcine 5000 units/ml vial SQ SCH ×2 (00:35→07:33)
[2022-01-05] MEDS: normal saline 1000ml 1,000 ML IV SCH (01:55)
[2022-01-05 02:00] VITALS: BP 149/91
[2022-01-05] MEDS: oxyCODONE/APAP 10/325mg tablet PO PRN (03:20)
--- NOTE | 2022-01-05 06:14 | NUR ---
Problems reprioritized. Patient report given, questions answered & plan of care reviewed with DENIA Gomez.
--- NOTE | 2022-01-05 06:29 | NUR ---
Patient in room PCU 3013. I have received report from DENIA Giraldo and had the opportunity to ask questions and assume patient care.
[2022-01-05 07:11] LABS: BASOPHILS % (AUTO) 0.8 % (0-1); EOSINOPHILS # (AUTO) 0.3 X10'3 (0-0.9); EOSINOPHILS % (AUTO) 4.6 % (0-6); HEMOGLOBIN 13.5 g/dl (12.0-16.0); LYMPHOCYTES % (AUTO) 31.2 % (21-51); MEAN CORPUSCULAR HEMOGLOBIN 31.8 PG (27.0-31.0); MEAN CORPUSCULAR VOLUME 96.4 FL (78-98); MEAN PLATELET VOLUME 8.8 FL (7.4-10.4); MONOCYTES # (AUTO) 0.5 X10'3 (0-0.9); MONOCYTES % (AUTO) 8.1 % (2-12); NEUTROPHILS # (AUTO) 3.5 X10'3 (1.8-7.7); NEUTROPHILS % (AUTO) 55.3 % (42-75); PLATELET COUNT 217 X10'3 (140-440); RED BLOOD COUNT 4.25 X10'6 (4.20-5.60); RED CELL DISTRIBUTION WIDTH 13.6 % (11.5-14.5); WHITE BLOOD COUNT 6.3 X10'3 (4.5-11.0)
[2022-01-05] MEDS: aspirin 325mg tablet, delayed-release (Ecotrin) PO SCH ×2 (07:31→07:35)
[2022-01-05] MEDS: docusate sod 100mg capsule PO SCH (07:33)
[2022-01-05] MEDS: atorvastatin 10mg tablet PO SCH (07:33)
[2022-01-05 07:48] LABS: ALANINE AMINOTRANSFERASE 49 U/L (12-78); ALBUMIN 3.2 G/DL (3.4-5.0); ALBUMIN/GLOBULIN RATIO 0.7 (1.1-1.5); ALKALINE PHOSPHATASE 107 IU/L (46-116); ANION GAP 9 (8-16); ASPARTATE AMINO TRANSFERASE 38 U/L (10-37); BILIRUBIN,TOTAL 0.4 MG/DL (0.1-1.0); BLOOD UREA NITROGEN 14 MG/DL (7-18); BUN/CREATININE RATIO 16.1 (6.6-38.0); CALCIUM 8.4 MG/DL (8.5-10.1); CHLORIDE 105 MMOL/L (99-107); CREATININE 0.87 MG/DL (0.40-0.90); GLUCOSE 100 MG/DL (70-104); PHOSPHORUS 3.5 MG/DL (2.3-4.5); POTASSIUM 3.9 MMOL/L (3.5-5.1); SODIUM 139 MMOL/L (135-145); TOTAL PROTEIN 7.6 G/DL (6.4-8.2); eGFR 67 ML/MIN
[2022-01-05] MEDS: K and/or MAG REPLACEMENT MC SCH (08:00)
[2022-01-05] MEDS ORDERED: OXYC1TAB17 PO (08:35)
--- NOTE | 2022-01-05 12:18 | NUR ---
Patient is stable for discharge per Dr. Hills orders. All discharge instructions reviewed with patient and all questions answered. New prescriptions sent electronically. Patient medications retrieved from pharmacy. PIV discontinued. shelter monitor discontinued. Belongings collected and sent with patient. Mode of transportation via private vehicle. Wheeled to lobby.
== END 2022-01-05 11:40 | disposition home health service (06) | DRG 47 ==
LOC: ER 04:07 → ED HOLD 14:05 → PCU 3S 20:44
PROVIDERS: ADMIT Family Medicine; ATTEND Family Medicine
DX: G45.9 Transient cerebral ischemic attack, unspecified (principal); Z68.44 Body mass index [BMI] 60.0-69.9, adult; E66.01 Morbid (severe) obesity due to excess calories; I25.10 Atherosclerotic heart disease of native coronary artery without angina pectoris; E78.5 Hyperlipidemia, unspecified; I10 Essential (primary) hypertension; K21.9 Gastro-esophageal reflux disease without esophagitis; F32.A Depression, unspecified; F41.9 Anxiety disorder, unspecified; Z85.42 Personal history of malignant neoplasm of other parts of uterus; Z86.73 Personal history of transient ischemic attack (TIA), and cerebral infarction without residual deficits; Z85.43 Personal history of malignant neoplasm of ovary; Z85.72 Personal history of non-Hodgkin lymphomas; Z87.442 Personal history of urinary calculi; Z90.710 Acquired absence of both cervix and uterus; Z92.21 Personal history of antineoplastic chemotherapy; Z56.0 Unemployment, unspecified; Z88.8 Allergy status to other drugs, medicaments and biological substances; Z88.5 Allergy status to narcotic agent; Z90.49 Acquired absence of other specified parts of digestive tract
CPT/HCPCS: 36415; 70450; 71045; 78451; 80053; 80061; 82948; 83036; 83605; 83735; 84100; 84484; 85025; 85610; 85651; 85730; 87040; 87081; 92508; 92616; 93005; 93017; 93306; 93880; 97110; 97116; 97161; 97530; 99291; A9500; G0378; J0280; J1644; J2785; J7030

== ENCOUNTER 2022-01-12 04:20 | Emergency (ER) | payer MEDICAID ==
[~2022-01-12] VITALS: Ht 167.6 cm; Wt 143.6 kg
[~2022-01-12 04:20] MED LIST changes: +ALBU2.5V10 IH; -ATOR-2 PO; +ATOR40TA72 PO; -DICL100G15 TOP; -DIPH25CA83 PO; +ERGO500056 PO; -HYDR25SU32 RC; -HYDR25TA5 PO; -LIDO1ADH TOP; -LIDO700A32 TOP; +MIRA50TA PO; -ONDA4TAB6 PO; -ONDA8TAB13 PO; -ORPH100T2 PO; -OXYC-145 PO; +OXYC1TAB17 PO; -PANT-47 PO
[2022-01-12 05:48] LABS: BASOPHILS % (AUTO) 0.6 % (0-1); EOSINOPHILS # (AUTO) 0.2 X10'3 (0-0.9); EOSINOPHILS % (AUTO) 3.3 % (0-6); HEMATOCRIT 40.8 % (35.0-45.0); HEMOGLOBIN 13.7 g/dl (12.0-16.0); LYMPHOCYTES # (AUTO) 1.8 X10'3 (1.1-4.8); LYMPHOCYTES % (AUTO) 28.9 % (21-51); MEAN CORPUSCULAR HEMOGLOBIN 32.8 PG (27.0-31.0); MEAN CORPUSCULAR HGB CONC 33.5 g/dL (33.0-36.5); MEAN CORPUSCULAR VOLUME 97.8 FL (78-98); MEAN PLATELET VOLUME 8.6 FL (7.4-10.4); MONOCYTES # (AUTO) 0.5 X10'3 (0-0.9); MONOCYTES % (AUTO) 8.6 % (2-12); NEUTROPHILS # (AUTO) 3.7 X10'3 (1.8-7.7); NEUTROPHILS % (AUTO) 58.6 % (42-75); PLATELET COUNT 244 X10'3 (140-440); RED BLOOD COUNT 4.17 X10'6 (4.20-5.60); RED CELL DISTRIBUTION WIDTH 14.2 % (11.5-14.5); WHITE BLOOD COUNT 6.3 X10'3 (4.5-11.0)
[2022-01-12 05:49] LABS: ALANINE AMINOTRANSFERASE 58 U/L (12-78); ALBUMIN 3.2 G/DL (3.4-5.0); ALBUMIN/GLOBULIN RATIO 0.7 (1.1-1.5); ALKALINE PHOSPHATASE 102 IU/L (46-116); ANION GAP 5 (8-16); ASPARTATE AMINO TRANSFERASE 45 U/L (10-37); BILIRUBIN,TOTAL 0.6 MG/DL (0.1-1.0); BLOOD UREA NITROGEN 6 MG/DL (7-18); BUN/CREATININE RATIO 7.1 (6.6-38.0); CALCIUM 8.6 MG/DL (8.5-10.1); CHLORIDE 104 MMOL/L (99-107); CREATININE 0.85 MG/DL (0.40-0.90); GLUCOSE 114 MG/DL (70-104); POTASSIUM 3.3 MMOL/L (3.5-5.1); SODIUM 135 MMOL/L (135-145); TOTAL CARBON DIOXIDE 25.6 MMOL/L (24-32); TOTAL PROTEIN 7.6 G/DL (6.4-8.2); eGFR 69 ML/MIN
[2022-01-12] MEDS ORDERED: furosemide 20MG tablet PO ONE (07:15)
[2022-01-12] MEDS ORDERED: FURO-150 PO (08:09)
[2022-01-12 08:43] VITALS: BP 174/75
== END 2022-01-12 08:44 | disposition home or self-care (01) ==
LOC: ER 04:21
DX: I51.7 Cardiomegaly (principal); J81.1 Chronic pulmonary edema; F41.9 Anxiety disorder, unspecified; F32.9 Major depressive disorder, single episode, unspecified; Z87.442 Personal history of urinary calculi; Z88.1 Allergy status to other antibiotic agents; Z88.5 Allergy status to narcotic agent; Z88.6 Allergy status to analgesic agent; Z79.899 Other long term (current) drug therapy
CPT/HCPCS: 36415; 71045; 80053; 83880; 84484; 85025; 93005; 99285

== ENCOUNTER 2022-01-28 04:43 | Emergency (ER) | payer MEDICAID ==
[~2022-01-28] VITALS: Ht 167.6 cm; Wt 163.0 kg
[~2022-01-28 04:43] MED LIST changes: +FURO-150 PO
[2022-01-28 04:58] VITALS: BP 166/100
== END 2022-01-28 06:09 | disposition left against medical advice (07) ==
LOC: ER 04:43
DX: M54.6 Pain in thoracic spine (principal); Z53.21 Procedure and treatment not carried out due to patient leaving prior to being seen by health care provider

== ENCOUNTER 2022-02-13 09:09 | Emergency (ER) | payer MEDICAID ==
[~2022-02-13] VITALS: Ht 167.6 cm; Wt 165.9 kg
[~2022-02-13 09:09] MED LIST changes: -FURO-150 PO
[2022-02-13] MEDS ORDERED: LORazepam 1 MG tablet PO ONE (09:45)
[2022-02-13 09:57] LABS: BASOPHILS # (AUTO) 0.1 X10'3 (0-0.2); BASOPHILS % (AUTO) 0.8 % (0-1); EOSINOPHILS # (AUTO) 0.1 X10'3 (0-0.9); HEMATOCRIT 40.6 % (35.0-45.0); HEMOGLOBIN 13.9 g/dl (12.0-16.0); LYMPHOCYTES # (AUTO) 1.9 X10'3 (1.1-4.8); LYMPHOCYTES % (AUTO) 30.2 % (21-51); MEAN CORPUSCULAR HEMOGLOBIN 32.4 PG (27.0-31.0); MEAN CORPUSCULAR HGB CONC 34.1 g/dL (33.0-36.5); MEAN PLATELET VOLUME 8.1 FL (7.4-10.4); MONOCYTES # (AUTO) 0.7 X10'3 (0-0.9); MONOCYTES % (AUTO) 11.1 % (2-12); NEUTROPHILS # (AUTO) 3.5 X10'3 (1.8-7.7); NEUTROPHILS % (AUTO) 55.9 % (42-75); PLATELET COUNT 242 X10'3 (140-440); RED BLOOD COUNT 4.27 X10'6 (4.20-5.60); RED CELL DISTRIBUTION WIDTH 13.7 % (11.5-14.5); WHITE BLOOD COUNT 6.2 X10'3 (4.5-11.0)
[2022-02-13 10:09] LABS: ALANINE AMINOTRANSFERASE 65 U/L (12-78); ALBUMIN 3.1 G/DL (3.4-5.0); ALBUMIN/GLOBULIN RATIO 0.7 (1.1-1.5); ALKALINE PHOSPHATASE 113 IU/L (46-116); ANION GAP 10 (8-16); ASPARTATE AMINO TRANSFERASE 41 U/L (10-37); BILIRUBIN,TOTAL 0.3 MG/DL (0.1-1.0); BLOOD UREA NITROGEN 9 MG/DL (7-18); BUN/CREATININE RATIO 11.4 (6.6-38.0); CALCIUM 8.7 MG/DL (8.5-10.1); CHLORIDE 105 MMOL/L (99-107); CREATININE 0.79 MG/DL (0.40-0.90); GLUCOSE 114 MG/DL (70-104); POTASSIUM 4.1 MMOL/L (3.5-5.1); SODIUM 140 MMOL/L (135-145); TOTAL CARBON DIOXIDE 25.3 MMOL/L (24-32); TOTAL PROTEIN 7.5 G/DL (6.4-8.2); eGFR 75 ML/MIN
--- NOTE | 2022-02-13 10:30 | NUR ---
pt up to bs and returned without incident.
--- NOTE | 2022-02-13 12:45 | NUR ---
pt up to bsc and back without incident, indpendently.
--- NOTE | 2022-02-13 14:10 | NUR ---
provided with sandwich and water.
[2022-02-13] MEDS ORDERED: acetaminophen 325mg tablet PO ONE (15:35)
[2022-02-13 15:47] VITALS: BP 143/79
== END 2022-02-13 15:54 | disposition home or self-care (01) ==
LOC: EEVIPCON 09:10 → ER 09:10
DX: R07.9 Chest pain, unspecified (principal); R53.1 Weakness
CPT/HCPCS: 36415; 71045; 80053; 83735; 83880; 84484; 85025; 93005; 99285

== ENCOUNTER 2022-02-17 07:11 | Emergency (ER) | payer MEDICAID ==
[~2022-02-17] VITALS: Ht 167.6 cm; Wt 163.6 kg
[2022-02-17] MEDS ORDERED: HYDROchlorothiazide 25mg tablet PO ONE (10:45)
[2022-02-17] MEDS ORDERED: HYDR25TA5 PO (10:46)
[2022-02-17 11:03] VITALS: BP 144/97
--- NOTE | 2022-02-17 11:41 | NUR ---
MD requested ERIKA hose be placed on pt. Unable to fully place ERIKA hose on pt due to size of ERIKA hose. ok with leaving ERIKA hose on. Pt removed ERIKA hose and stated they were too tight. Pt encouraged to find appropriate size ERIKA hose as they will help with pain and swelling. Pt verbalized understanding.
== END 2022-02-17 11:42 | disposition home or self-care (01) ==
LOC: ER 07:11
DX: R60.0 Localized edema (principal); R07.89 Other chest pain; I25.10 Atherosclerotic heart disease of native coronary artery without angina pectoris; F41.9 Anxiety disorder, unspecified; F32.A Depression, unspecified; Z86.73 Personal history of transient ischemic attack (TIA), and cerebral infarction without residual deficits; Z87.442 Personal history of urinary calculi; Z87.440 Personal history of urinary (tract) infections; Z90.49 Acquired absence of other specified parts of digestive tract; Z90.710 Acquired absence of both cervix and uterus; Z98.890 Other specified postprocedural states; Z56.0 Unemployment, unspecified; Z88.1 Allergy status to other antibiotic agents; Z88.8 Allergy status to other drugs, medicaments and biological substances; Z88.6 Allergy status to analgesic agent; Z79.899 Other long term (current) drug therapy
CPT/HCPCS: 99283

== ENCOUNTER 2022-02-26 02:16 | Emergency (ER) | payer MEDICAID ==
[~2022-02-26] VITALS: Ht 165.1 cm; Wt 165.9 kg
[~2022-02-26 02:16] MED LIST changes: +HYDR25TA5 PO
[2022-02-26 02:46] VITALS: BP 170/71
[2022-02-26] MEDS ORDERED: aspirin 81mg tab.chew PO ONE (10:10)
[2022-02-26 10:56] LABS: BASOPHILS # (AUTO) 0.1 X10'3 (0-0.2); BASOPHILS % (AUTO) 0.8 % (0-1); EOSINOPHILS # (AUTO) 0.1 X10'3 (0-0.9); EOSINOPHILS % (AUTO) 2.3 % (0-6); HEMATOCRIT 47.5 % (35.0-45.0); LYMPHOCYTES # (AUTO) 1.8 X10'3 (1.1-4.8); LYMPHOCYTES % (AUTO) 27.4 % (21-51); MEAN CORPUSCULAR HEMOGLOBIN 32.1 PG (27.0-31.0); MEAN CORPUSCULAR HGB CONC 33.6 g/dL (33.0-36.5); MEAN CORPUSCULAR VOLUME 95.5 FL (78-98); MEAN PLATELET VOLUME 8.1 FL (7.4-10.4); MONOCYTES # (AUTO) 0.4 X10'3 (0-0.9); MONOCYTES % (AUTO) 6.8 % (2-12); NEUTROPHILS % (AUTO) 62.7 % (42-75); PLATELET COUNT 221 X10'3 (140-440); RED BLOOD COUNT 4.98 X10'6 (4.20-5.60); RED CELL DISTRIBUTION WIDTH 13.8 % (11.5-14.5); WHITE BLOOD COUNT 6.4 X10'3 (4.5-11.0)
[2022-02-26 11:08] LABS: CLARITY,URINE CLEAR (Clear); COLOR,URINE YELLOW (Yellow); GLUCOSE, URINE NEGATIVE (Neg); KETONES,URINE NEGATIVE (Neg); LEUKOCYTE ESTERASE ,URINE NEGATIVE (Neg); NITRITES, URINE NEGATIVE (Neg); OCCULT BLOOD,URINE TRACE-INTACT (Neg); PROTEIN,URINE NEGATIVE (Neg); UROBILINOGEN,URINE 0.2 E.U/dL (0.2-1.0)
[2022-02-26 11:12] LABS: ALANINE AMINOTRANSFERASE 76 U/L (12-78); ALBUMIN 3.8 G/DL (3.4-5.0); ALBUMIN/GLOBULIN RATIO 0.7 (1.1-1.5); ALKALINE PHOSPHATASE 134 IU/L (46-116); ANION GAP 7 (8-16); ASPARTATE AMINO TRANSFERASE 58 U/L (10-37); BILIRUBIN,TOTAL 0.6 MG/DL (0.1-1.0); BLOOD UREA NITROGEN 13 MG/DL (7-18); CALCIUM 9.3 MG/DL (8.5-10.1); CHLORIDE 106 MMOL/L (99-107); CREATININE 0.81 MG/DL (0.40-0.90); GLUCOSE 104 MG/DL (70-104); SODIUM 140 MMOL/L (135-145); TOTAL CARBON DIOXIDE 27.3 MMOL/L (24-32); TOTAL PROTEIN 9.2 G/DL (6.4-8.2); eGFR 73 ML/MIN
[2022-02-26 11:18] LABS: UA COLLECTION TYPE NON-SPECIFIED
[2022-02-26 11:18] LABS: MAGNESIUM 2.2 MG/DL (1.5-2.4)
[2022-02-26 11:20] LABS: BACTERIA,URINE FEW /HPF (Neg); MUCUS STRANDS FEW /LPF (Neg); RBC,URINE 0-2 /HPF (0-2); SQUAMOUS EPITHELIAL CELL,UR MANY /LPF (FEW)
== END 2022-02-26 14:54 | disposition home or self-care (01) ==
LOC: ER 02:18
DX: M79.661 Pain in right lower leg (principal); M79.662 Pain in left lower leg; R22.43 Localized swelling, mass and lump, lower limb, bilateral; I25.10 Atherosclerotic heart disease of native coronary artery without angina pectoris; F41.9 Anxiety disorder, unspecified; F32.9 Major depressive disorder, single episode, unspecified; Z87.442 Personal history of urinary calculi; Z90.710 Acquired absence of both cervix and uterus; Z90.49 Acquired absence of other specified parts of digestive tract; Z86.73 Personal history of transient ischemic attack (TIA), and cerebral infarction without residual deficits; Z98.890 Other specified postprocedural states; Z88.1 Allergy status to other antibiotic agents; Z88.5 Allergy status to narcotic agent; Z88.6 Allergy status to analgesic agent; Z88.8 Allergy status to other drugs, medicaments and biological substances; Z79.899 Other long term (current) drug therapy; Z79.82 Long term (current) use of aspirin
CPT/HCPCS: 36415; 71045; 80053; 81001; 83735; 83880; 84484; 85025; 85610; 93005; 93971; 99285

== ENCOUNTER 2022-04-08 03:19 | Emergency (ER) | payer MEDICAID ==
[~2022-04-08] VITALS: Ht 167.6 cm; Wt 168.2 kg
[2022-04-08] MEDS ORDERED: ondansetron/PF 4mg/2ml inj IV ONE (03:45)
[2022-04-08] MEDS ORDERED: morphine 4 MG/ML inj SYRINge IV ONE (03:45)
[2022-04-08 04:07] LABS: BASOPHILS # (AUTO) 0.1 X10'3 (0-0.2); BASOPHILS % (AUTO) 0.8 % (0-1); EOSINOPHILS # (AUTO) 0.1 X10'3 (0-0.9); HEMATOCRIT 40.9 % (35.0-45.0); HEMOGLOBIN 13.7 g/dl (12.0-16.0); LYMPHOCYTES # (AUTO) 1.9 X10'3 (1.1-4.8); MEAN CORPUSCULAR HEMOGLOBIN 32.1 PG (27.0-31.0); MEAN CORPUSCULAR HGB CONC 33.6 g/dL (33.0-36.5); MEAN CORPUSCULAR VOLUME 95.4 FL (78-98); MEAN PLATELET VOLUME 7.7 FL (7.4-10.4); MONOCYTES # (AUTO) 0.9 X10'3 (0-0.9); NEUTROPHILS % (AUTO) 67.2 % (42-75); PLATELET COUNT 231 X10'3 (140-440); RED BLOOD COUNT 4.29 X10'6 (4.20-5.60); RED CELL DISTRIBUTION WIDTH 13.5 % (11.5-14.5); WHITE BLOOD COUNT 8.9 X10'3 (4.5-11.0)
[2022-04-08 04:13] LABS: CLARITY,URINE CLEAR (Clear); COLOR,URINE YELLOW (Yellow); GLUCOSE, URINE NEGATIVE (Neg); KETONES,URINE NEGATIVE (Neg); LEUKOCYTE ESTERASE ,URINE NEGATIVE (Neg); NITRITES, URINE NEGATIVE (Neg); OCCULT BLOOD,URINE TRACE-INTACT (Neg); PH,URINE 5.5 (4.8-8.0); PROTEIN,URINE NEGATIVE (Neg); UROBILINOGEN,URINE 0.2 E.U/dL (0.2-1.0)
[2022-04-08 04:20] LABS: UA COLLECTION TYPE CLN CATCH MIDSTREAM
[2022-04-08 04:23] LABS: ALANINE AMINOTRANSFERASE 65 U/L (12-78); ALBUMIN 3.3 G/DL (3.4-5.0); ALBUMIN/GLOBULIN RATIO 0.8 (1.1-1.5); ALKALINE PHOSPHATASE 119 IU/L (46-116); ANION GAP 8 (8-16); ASPARTATE AMINO TRANSFERASE 44 U/L (10-37); BILIRUBIN,TOTAL 0.5 MG/DL (0.1-1.0); BLOOD UREA NITROGEN 14 MG/DL (7-18); BUN/CREATININE RATIO 13.6 (6.6-38.0); CALCIUM 8.5 MG/DL (8.5-10.1); CHLORIDE 106 MMOL/L (99-107); CREATININE 1.03 MG/DL (0.40-0.90); GLUCOSE 98 MG/DL (70-104); LIPASE 69 U/L (73-393); POTASSIUM 3.6 MMOL/L (3.5-5.1); SODIUM 141 MMOL/L (135-145); TOTAL CARBON DIOXIDE 26.9 MMOL/L (24-32); TOTAL PROTEIN 7.7 G/DL (6.4-8.2); eGFR 55 ML/MIN
[2022-04-08 04:26] LABS: BACTERIA,URINE 2+ /HPF (Neg); RBC,URINE 0-2 /HPF (0-2); SQUAMOUS EPITHELIAL CELL,UR MANY /LPF (FEW)
[2022-04-08] MEDS ORDERED: iohexol 350MG/ML 100ml bottle IV ONE (05:33)
--- NOTE | 2022-04-08 06:50 | NUR ---
repeat urine sent to lab
[2022-04-08] MEDS ORDERED: HYDROcodone/acetaminophen 5mg/325mg tablet PO ONE (07:40)
[2022-04-08 08:19] VITALS: BP 141/77
== END 2022-04-08 08:20 | disposition home or self-care (01) ==
LOC: ER 03:20 → EEVIPCON 03:20 → ER 08:20
DX: R10.9 Unspecified abdominal pain (principal); Z88.1 Allergy status to other antibiotic agents; Z88.5 Allergy status to narcotic agent; Z88.6 Allergy status to analgesic agent; Z88.8 Allergy status to other drugs, medicaments and biological substances; Z90.49 Acquired absence of other specified parts of digestive tract; Z98.890 Other specified postprocedural states; Z90.710 Acquired absence of both cervix and uterus; Z56.0 Unemployment, unspecified
CPT/HCPCS: 36415; 74177; 80053; 81001; 83690; 85025; 87088; 96374; 96375; 99285; J2270; J2405; J3490; Q9967

== ENCOUNTER 2022-08-21 20:14 | Emergency (ER) | payer MEDICAID ==
[~2022-08-21] VITALS: Ht 165.1 cm; Wt 113.6 kg
[2022-08-21 20:17] VITALS: BP 175/84
[2022-08-21 21:13] LABS: CLARITY,URINE CLEAR (Clear); COLOR,URINE YELLOW (Yellow); GLUCOSE, URINE NEGATIVE (Neg); KETONES,URINE NEGATIVE (Neg); LEUKOCYTE ESTERASE ,URINE NEGATIVE (Neg); NITRITES, URINE NEGATIVE (Neg); OCCULT BLOOD,URINE NEGATIVE (Neg); PROTEIN,URINE NEGATIVE (Neg); UROBILINOGEN,URINE 0.2 E.U/dL (0.2-1.0)
[2022-08-21 21:15] LABS: URINE HCG NEGATIVE (NEG)
[2022-08-21 21:18] LABS: UA COLLECTION TYPE CLN CATCH MIDSTREAM
[2022-08-21] MEDS ORDERED: ACET-1025 PO (22:13)
[2022-08-21] MEDS ORDERED: HYDROcodone/acetaminophen 5mg/325mg tablet PO ONE (22:15)
[2022-08-21] MEDS ORDERED: orphenadrine citrate 60mg/2ml inj. IM ONE (22:15)
== END 2022-08-21 22:42 | disposition home or self-care (01) ==
LOC: ER 20:14
DX: M54.50 Low back pain, unspecified (principal); Z88.1 Allergy status to other antibiotic agents; Z88.6 Allergy status to analgesic agent; Z90.49 Acquired absence of other specified parts of digestive tract; Z98.890 Other specified postprocedural states; Z90.710 Acquired absence of both cervix and uterus; Z56.0 Unemployment, unspecified
CPT/HCPCS: 81003; 81025; 96372; 99283; J2360

== ENCOUNTER 2022-10-24 18:10 | Emergency (ER) | payer MEDICAID ==
[~2022-10-24] VITALS: Ht 167.6 cm; Wt 159.1 kg
[2022-10-25 03:12] LABS: CLARITY,URINE CLOUDY (Clear); COLOR,URINE YELLOW (Yellow); GLUCOSE, URINE NEGATIVE (Neg); KETONES,URINE NEGATIVE (Neg); LEUKOCYTE ESTERASE ,URINE SMALL (Neg); NITRITES, URINE POSITIVE (Neg); OCCULT BLOOD,URINE LARGE (Neg); PH,URINE 5.5 (4.8-8.0); PROTEIN,URINE TRACE mg/dl (Neg); UROBILINOGEN,URINE 0.2 E.U/dL (0.2-1.0)
[2022-10-25 03:20] LABS: MUCUS STRANDS MODERATE /LPF (Neg); SQUAMOUS EPITHELIAL CELL,UR MODERATE /LPF (FEW); UA COLLECTION TYPE CLN CATCH MIDSTREAM
[2022-10-25 03:21] LABS: BACTERIA,URINE 4+ /HPF (Neg); RBC,URINE 50-100 /HPF (0-2); WBC,URINE TNTC /HPF (0-4)
[2022-10-25 03:23] LABS: CAL OXALATE CRYSTALS 3+ /HPF (NEGATIVE); WBC CLUMPS,URINE MANY /HPF (NEGATIVE)
[2022-10-25] MEDS ORDERED: CefTRIAXone/D5W-Rocephin 1gm 50 ML IV ONE (03:40)
[2022-10-25 04:04] LABS: BASOPHILS # (AUTO) 0.1 X10'3 (0-0.2); BASOPHILS % (AUTO) 0.7 % (0-1); EOSINOPHILS # (AUTO) 0.2 X10'3 (0-0.9); EOSINOPHILS % (AUTO) 1.9 % (0-6); HEMATOCRIT 47.1 % (35.0-45.0); HEMOGLOBIN 15.6 g/dl (12.0-16.0); LYMPHOCYTES # (AUTO) 2.3 X10'3 (1.1-4.8); LYMPHOCYTES % (AUTO) 28.1 % (21-51); MEAN CORPUSCULAR HEMOGLOBIN 31.6 PG (27.0-31.0); MEAN CORPUSCULAR HGB CONC 33.1 g/dL (33.0-36.5); MEAN CORPUSCULAR VOLUME 95.5 FL (78-98); MEAN PLATELET VOLUME 8.2 FL (7.4-10.4); MONOCYTES # (AUTO) 0.6 X10'3 (0-0.9); MONOCYTES % (AUTO) 7.7 % (2-12); NEUTROPHILS % (AUTO) 61.6 % (42-75); PLATELET COUNT 248 X10'3 (140-440); RED BLOOD COUNT 4.93 X10'6 (4.20-5.60); RED CELL DISTRIBUTION WIDTH 14.2 % (11.5-14.5); WHITE BLOOD COUNT 8.2 X10'3 (4.5-11.0)
[2022-10-25 04:15] LABS: ALANINE AMINOTRANSFERASE 53 U/L (12-78); ALBUMIN 3.7 G/DL (3.4-5.0); ALBUMIN/GLOBULIN RATIO 0.8 (1.1-1.5); ALKALINE PHOSPHATASE 123 IU/L (46-116); ANION GAP 8 (8-16); ASPARTATE AMINO TRANSFERASE 56 U/L (10-37); BILIRUBIN,TOTAL 0.7 MG/DL (0.1-1.0); BLOOD UREA NITROGEN 8 MG/DL (7-18); BUN/CREATININE RATIO 8.8 (6.6-38.0); CALCIUM 9.2 MG/DL (8.5-10.1); CHLORIDE 105 MMOL/L (99-107); CREATININE 0.91 MG/DL (0.40-0.90); GLUCOSE 128 MG/DL (70-104); POTASSIUM 3.6 MMOL/L (3.5-5.1); SODIUM 141 MMOL/L (135-145); TOTAL CARBON DIOXIDE 27.6 MMOL/L (24-32); TOTAL PROTEIN 8.6 G/DL (6.4-8.2); eGFR 63 ML/MIN
[2022-10-25] MEDS ORDERED: CEPH-585 PO (06:32)
--- NOTE | 2022-10-25 07:10 | NUR ---
Bladder scan done post void, w/ 18ml scanned.
[2022-10-25] MEDS ORDERED: CefTRIAXone 1000mg IM Kit (w/lidocaine diluent) IM ONE (07:15)
[2022-10-25] MEDS ORDERED: HYDROcodone/acetaminophen 10/325mg tab PO ONE (13:40)
[2022-10-25 14:06] VITALS: BP 136/86
== END 2022-10-25 15:30 | disposition home or self-care (01) ==
LOC: ER 18:11
DX: N39.0 Urinary tract infection, site not specified (principal); M54.9 Dorsalgia, unspecified; I11.0 Hypertensive heart disease with heart failure; F31.9 Bipolar disorder, unspecified; Z98.890 Other specified postprocedural states; Z88.1 Allergy status to other antibiotic agents; Z79.899 Other long term (current) drug therapy; Z88.6 Allergy status to analgesic agent; Z91.010 Allergy to peanuts
CPT/HCPCS: 36415; 80053; 81001; 85025; 85610; 96372; 99285; J0696; J7030

== ENCOUNTER 2022-10-26 19:05 | Emergency (ER) | payer MEDICAID ==
[~2022-10-26] VITALS: Ht 167.6 cm; Wt 159.1 kg
[~2022-10-26 19:05] MED LIST changes: +CEPH-585 PO
[2022-10-26 19:19] VITALS: BP 163/105
== END 2022-10-26 21:45 | disposition home or self-care (01) ==
LOC: ER 19:06
DX: N39.0 Urinary tract infection, site not specified (principal); M54.50 Low back pain, unspecified; I25.10 Atherosclerotic heart disease of native coronary artery without angina pectoris; F41.9 Anxiety disorder, unspecified; F32.9 Major depressive disorder, single episode, unspecified; Z87.442 Personal history of urinary calculi; Z98.890 Other specified postprocedural states; Z90.710 Acquired absence of both cervix and uterus; Z86.73 Personal history of transient ischemic attack (TIA), and cerebral infarction without residual deficits; Z56.0 Unemployment, unspecified; Z88.1 Allergy status to other antibiotic agents; Z88.6 Allergy status to analgesic agent; Z88.8 Allergy status to other drugs, medicaments and biological substances; Z79.899 Other long term (current) drug therapy
CPT/HCPCS: 99283

== ENCOUNTER 2023-01-14 10:32 | Emergency (ER) | payer MEDICAID ==
[~2023-01-14] VITALS: Ht 167.6 cm; Wt 155.9 kg
[2023-01-14 10:46] VITALS: BP 155/93
[2023-01-14 11:27] LABS: CLARITY,URINE CLOUDY (Clear); COLOR,URINE YELLOW (Yellow); GLUCOSE, URINE NEGATIVE (Neg); KETONES,URINE NEGATIVE (Neg); LEUKOCYTE ESTERASE ,URINE SMALL (Neg); NITRITES, URINE NEGATIVE (Neg); OCCULT BLOOD,URINE LARGE (Neg); PROTEIN,URINE 100 mg/dl (Neg); UROBILINOGEN,URINE 0.2 E.U/dL (0.2-1.0)
[2023-01-14 11:31] LABS: UA COLLECTION TYPE CLN CATCH MIDSTREAM
[2023-01-14 11:32] LABS: BACTERIA,URINE FEW /HPF (Neg); MUCUS STRANDS FEW /LPF (Neg); RBC,URINE 50-100 /HPF (0-2); SQUAMOUS EPITHELIAL CELL,UR MODERATE /LPF (FEW)
[2023-01-14] MEDS ORDERED: HYDROcodone/acetaminophen 10/325mg tab PO ONE (11:45)
[2023-01-14 11:47] LABS: BASOPHILS % (AUTO) 0.6 % (0-1); EOSINOPHILS # (AUTO) 0.2 X10'3 (0-0.9); EOSINOPHILS % (AUTO) 2.8 % (0-6); HEMOGLOBIN 14.5 g/dl (12.0-16.0); LYMPHOCYTES # (AUTO) 1.5 X10'3 (1.1-4.8); LYMPHOCYTES % (AUTO) 23.3 % (21-51); MEAN CORPUSCULAR HEMOGLOBIN 32.1 PG (27.0-31.0); MEAN CORPUSCULAR HGB CONC 33.7 g/dL (33.0-36.5); MEAN CORPUSCULAR VOLUME 95.2 FL (78-98); MEAN PLATELET VOLUME 7.9 FL (7.4-10.4); MONOCYTES # (AUTO) 0.6 X10'3 (0-0.9); MONOCYTES % (AUTO) 9.6 % (2-12); NEUTROPHILS # (AUTO) 4.1 X10'3 (1.8-7.7); NEUTROPHILS % (AUTO) 63.7 % (42-75); PLATELET COUNT 306 X10'3 (140-440); RED BLOOD COUNT 4.51 X10'6 (4.20-5.60); RED CELL DISTRIBUTION WIDTH 14.3 % (11.5-14.5); WHITE BLOOD COUNT 6.4 X10'3 (4.5-11.0)
[2023-01-14 11:58] LABS: ALANINE AMINOTRANSFERASE 62 U/L (12-78); ALBUMIN 3.3 G/DL (3.4-5.0); ALBUMIN/GLOBULIN RATIO 0.7 (1.1-1.5); ALKALINE PHOSPHATASE 126 IU/L (46-116); ANION GAP 7 (8-16); ASPARTATE AMINO TRANSFERASE 56 U/L (10-37); BILIRUBIN,TOTAL 0.6 MG/DL (0.1-1.0); BLOOD UREA NITROGEN 12 MG/DL (7-18); BUN/CREATININE RATIO 13.2 (10.0-20.0); CALCIUM 9.1 MG/DL (8.5-10.1); CHLORIDE 102 MMOL/L (99-107); CREATININE 0.91 MG/DL (0.40-0.90); GLUCOSE 99 MG/DL (70-104); POTASSIUM 4.1 MMOL/L (3.5-5.1); SODIUM 138 MMOL/L (135-145); TOTAL CARBON DIOXIDE 28.6 MMOL/L (24-32); TOTAL PROTEIN 8.2 G/DL (6.4-8.2); eGFR 63 ML/MIN
--- NOTE | 2023-01-14 12:03 | NUR ---
RED CLIFF/LEGALLY DEAF. READS LIPS WELL
--- NOTE | 2023-01-14 12:31 | NUR ---
US COMPLETED. PT STATES, "NORCO WAS EFFECTIVE, PAIN NOW 5/10."
[2023-01-14] MEDS ORDERED: CEPH-585 PO (12:50)
[2023-01-14] MEDS ORDERED: HYDR-3973 PO (12:50)
--- NOTE | 2023-01-14 12:53 | NUR ---
PER KIERA, PT MAY HAVE ICE WATER. PT GIVEN 240CC OF H20
== END 2023-01-14 13:28 | disposition home or self-care (01) ==
LOC: ER 10:32
DX: N39.0 Urinary tract infection, site not specified (principal); R10.9 Unspecified abdominal pain; I25.10 Atherosclerotic heart disease of native coronary artery without angina pectoris; F41.9 Anxiety disorder, unspecified; Z87.440 Personal history of urinary (tract) infections; Z87.442 Personal history of urinary calculi; Z86.73 Personal history of transient ischemic attack (TIA), and cerebral infarction without residual deficits; Z90.49 Acquired absence of other specified parts of digestive tract; Z98.891 History of uterine scar from previous surgery; Z90.710 Acquired absence of both cervix and uterus; Z56.0 Unemployment, unspecified; Z88.1 Allergy status to other antibiotic agents; Z88.8 Allergy status to other drugs, medicaments and biological substances; Z79.899 Other long term (current) drug therapy; Z79.2 Long term (current) use of antibiotics
CPT/HCPCS: 36415; 76770; 80053; 81001; 85025; 87088; 99284

== ENCOUNTER 2023-03-03 14:43 | Outpatient (CLI) | payer MEDICAID ==
[~2023-03-03] VITALS: Ht 163.8 cm; Wt 153.8 kg
[~2023-03-03 14:43] MED LIST changes: -ALBU2.5V10 IH; -ATOR40TA72 PO; -CEPH-585 PO; -ERGO500056 PO; -HYDR25TA5 PO; +LEVO750T68 PO; -MIRA50TA PO; +ONDA4TAB12 PO
[2023-03-03] MEDS ORDERED: albuterol 2.5 MG/3 ML nebule NEB ONE (15:10)
== END 2023-03-03 23:59 | disposition home or self-care (01) ==
LOC: RT 14:43
PROVIDERS: ATTEND Family Medicine
DX: R94.2 Abnormal results of pulmonary function studies (principal); R05.3 Chronic cough; J98.4 Other disorders of lung
CPT/HCPCS: 94060; 94760

== ENCOUNTER 2023-04-12 09:37 | Inpatient (IN) | payer MEDICAID ==
[~2023-04-12] VITALS: Ht 167.6 cm; Wt 154.0 kg
[2023-04-12] VITALS (8 sets, daily range): BP systolic 101–132; BP diastolic 52–72; PULSE 74–97; RESP 14–16; O2SAT 95–98
[2023-04-12] MEDS ORDERED: nitroGLYCERIN 1gm ointment UD TP ONE (10:05)
[2023-04-12 10:16] LABS: BASOPHILS % (AUTO) 0.5 % (0-1); EOSINOPHILS # (AUTO) 0.1 X10'3 (0-0.9); HEMATOCRIT 44.9 % (35.0-45.0); HEMOGLOBIN 15.4 g/dl (12.0-16.0); LYMPHOCYTES # (AUTO) 1.5 X10'3 (1.1-4.8); LYMPHOCYTES % (AUTO) 18.9 % (21-51); MEAN CORPUSCULAR HEMOGLOBIN 32.3 PG (27.0-31.0); MEAN CORPUSCULAR HGB CONC 34.2 g/dL (33.0-36.5); MEAN CORPUSCULAR VOLUME 94.4 FL (78-98); MEAN PLATELET VOLUME 7.7 FL (7.4-10.4); MONOCYTES # (AUTO) 0.5 X10'3 (0-0.9); MONOCYTES % (AUTO) 6.6 % (2-12); PLATELET COUNT 286 X10'3 (140-440); RED BLOOD COUNT 4.75 X10'6 (4.20-5.60); RED CELL DISTRIBUTION WIDTH 14.4 % (11.5-14.5); WHITE BLOOD COUNT 8.2 X10'3 (4.5-11.0)
[2023-04-12 10:18] LABS: ALANINE AMINOTRANSFERASE 47 U/L (12-78); ALBUMIN 3.5 G/DL (3.4-5.0); ALBUMIN/GLOBULIN RATIO 0.7 (1.1-1.5); ALKALINE PHOSPHATASE 109 IU/L (46-116); ANION GAP 7 (8-16); ASPARTATE AMINO TRANSFERASE 48 U/L (10-37); BILIRUBIN,TOTAL 0.8 MG/DL (0.1-1.0); BLOOD UREA NITROGEN 11 MG/DL (7-18); BUN/CREATININE RATIO 12.5 (10.0-20.0); CALCIUM 9.3 MG/DL (8.5-10.1); CHLORIDE 103 MMOL/L (99-107); CREATININE 0.88 MG/DL (0.40-0.90); GLUCOSE 123 MG/DL (70-104); POTASSIUM 3.6 MMOL/L (3.5-5.1); SODIUM 137 MMOL/L (135-145); TOTAL CARBON DIOXIDE 27.4 MMOL/L (24-32); TOTAL PROTEIN 8.8 G/DL (6.4-8.2); eCRCL 64 ML/MIN; eGFR 66 ML/MIN
[2023-04-12] MEDS ORDERED: iohexol 350MG/ML 100ml bottle IV ONE (10:26)
[2023-04-12 10:27] LABS: PRO BRAIN NATRIURETIC PEPTIDE 57 PG/ML (0-125)
[2023-04-12] MEDS ORDERED: ondansetron/PF 4mg/2ml inj IV PRN (13:00)
[2023-04-12] MEDS: pantoprazole 40mg Tablet.DR PO SCH ×2 (13:00→20:00)
[2023-04-12] MEDS ORDERED: potassium Cl 20 mEq SR tablet PO PRN ×2 (13:00)
[2023-04-12] MEDS ORDERED: magnesium 4gm in 100ml NS 100 ML IV PRN (13:00)
[2023-04-12] MEDS ORDERED: mag hydrox/Alum hydrox/simeth 30ml oral suspension PO PRN (13:00)
[2023-04-12] MEDS ORDERED: magnesium hydroxide 30ml (MOM) UD suspension PO PRN (13:00)
[2023-04-12] MEDS ORDERED: HYDROcodone/acetaminophen 10/325mg tab PO PRN (13:00)
[2023-04-12] MEDS ORDERED: acetaminophen 325mg tablet PO PRN ×2 (13:00)
[2023-04-12] MEDS ORDERED: potassium Cl 40MEQ/1/2NS 520ml 520 ML IV PRN (13:00)
[2023-04-12] MEDS ORDERED: magnesium Cl slow-release 64mg tablet PO PRN (13:00)
[2023-04-12] MEDS ORDERED: HYDROcodone/acetaminophen 5mg/325mg tablet PO PRN (13:00)
[2023-04-12] MEDS ORDERED: morphine 2 MG/ML inj. syringe IV PRN (13:00)
[2023-04-12] MEDS ORDERED: magnesium 2GM in 50ml NS 50 ML IV PRN (13:00)
[2023-04-12] MEDS ORDERED: aminophylline 250mg/10ml inj. IV PRN (13:05)
[2023-04-12] MEDS ORDERED: nitroGLYCERIN 0.4mg SUBLingual tab SL PRN (13:05)
[2023-04-12] MEDS ORDERED: metoprolol tartrate 1mg/ml inj IV PRN (13:05)
[2023-04-12] MEDS ORDERED: regadenoson 0.4mg/5ml syringe IV PRN (13:05)
[2023-04-12] MEDS ORDERED: ALBU2.5V10 NEB (14:35)
[2023-04-12] MEDS ORDERED: ACET-1084 PO (14:38)
[2023-04-12 15:15] LABS: URINE AMPHETAMINE SCREEN NEGATIVE (Neg); URINE BARBITUATE SCREEN NEGATIVE (Neg); URINE BENZODIAZEPINES SCREEN NEGATIVE (Neg); URINE CANNABINOID SCREEN NEGATIVE (Neg); URINE COCAINE SCREEN NEGATIVE (Neg); URINE METHADONE SCREEN NEGATIVE (Neg); URINE OPIATE SCREEN NEGATIVE (Neg); URINE PHENCYCLIDINE SCREEN NEGATIVE (Neg)
--- NOTE | 2023-04-12 16:04 | NUR ---
Still in the Nuclear Med for stress test at this time
[2023-04-12] MEDS: morphine 2 MG/ML inj. syringe IV PRN (16:39)
--- NOTE | 2023-04-12 19:27 | NUR ---
pt request pain meds stated her cp is returning. 12/28
--- NOTE | 2023-04-12 19:56 | NUR ---
placed pt onto in-patient bed
[2023-04-12] MEDS ORDERED: enoxaparin 40mg/0.4ml syringe SQ SCH (20:00)
[2023-04-12] MEDS: docusate sod 100mg capsule PO SCH (20:00)
[2023-04-12] MEDS ORDERED: temazepam 15mg capsule PO PRN (21:00)
--- NOTE | 2023-04-13 01:13 | NUR ---
pt co rafal. informed prn med given
[2023-04-13] MEDS: morphine 2 MG/ML inj. syringe IV PRN (03:26)
--- NOTE | 2023-04-13 03:29 | NUR ---
norco not controling pt pain. pt states shes had no relief from po meds. prn iv med given by rn
[2023-04-13 03:38] LABS: BASOPHILS % (AUTO) 0.5 % (0-1); EOSINOPHILS # (AUTO) 0.1 X10'3 (0-0.9); EOSINOPHILS % (AUTO) 1.9 % (0-6); HEMATOCRIT 37.7 % (35.0-45.0); HEMOGLOBIN 12.6 g/dl (12.0-16.0); LYMPHOCYTES # (AUTO) 1.9 X10'3 (1.1-4.8); LYMPHOCYTES % (AUTO) 25.1 % (21-51); MEAN CORPUSCULAR HEMOGLOBIN 31.7 PG (27.0-31.0); MEAN CORPUSCULAR HGB CONC 33.4 g/dL (33.0-36.5); MEAN CORPUSCULAR VOLUME 94.9 FL (78-98); MONOCYTES # (AUTO) 0.7 X10'3 (0-0.9); MONOCYTES % (AUTO) 8.7 % (2-12); NEUTROPHILS # (AUTO) 4.9 X10'3 (1.8-7.7); NEUTROPHILS % (AUTO) 63.8 % (42-75); PLATELET COUNT 227 X10'3 (140-440); RED BLOOD COUNT 3.98 X10'6 (4.20-5.60); RED CELL DISTRIBUTION WIDTH 14.1 % (11.5-14.5); WHITE BLOOD COUNT 7.8 X10'3 (4.5-11.0)
[2023-04-13 07:50] LABS: ALANINE AMINOTRANSFERASE 44 U/L (12-78); ALBUMIN 3.1 G/DL (3.4-5.0); ALBUMIN/GLOBULIN RATIO 0.8 (1.1-1.5); ALKALINE PHOSPHATASE 91 IU/L (46-116); ANION GAP 10 (8-16); ASPARTATE AMINO TRANSFERASE 41 U/L (10-37); BILIRUBIN,TOTAL 0.7 MG/DL (0.1-1.0); BLOOD UREA NITROGEN 9 MG/DL (7-18); BUN/CREATININE RATIO 12.7 (10.0-20.0); CALCIUM 8.5 MG/DL (8.5-10.1); CHLORIDE 104 MMOL/L (99-107); CREATININE 0.71 MG/DL (0.40-0.90); GLUCOSE 93 MG/DL (70-104); POTASSIUM 3.7 MMOL/L (3.5-5.1); SODIUM 139 MMOL/L (135-145); TOTAL CARBON DIOXIDE 24.7 MMOL/L (24-32); TOTAL PROTEIN 7.1 G/DL (6.4-8.2); eCRCL 80 ML/MIN; eGFR 84 ML/MIN
[2023-04-13] MEDS: docusate sod 100mg capsule PO SCH (08:00)
[2023-04-13 08:35] VITALS: BP 135/84; PULSE 69; RESP 16; TEMP 98; O2SAT 96
--- NOTE | 2023-04-13 08:38 | NUR ---
Pt complaining of left sided numbness and weakness since 829. Dr. Sheth paged
--- NOTE | 2023-04-13 08:41 | NUR ---
ESSAGE: RE: Kimberley [facility] room 3019 Pt complaining of left sided numbness and weakness since 08:30. HX CVA in Aug 2022 Please advise Williams LOZA [phone]
[2023-04-13 09:03] VITALS: RESP 16; O2SAT 96
[2023-04-13] MEDS: pantoprazole 40mg Tablet.DR PO SCH (09:33)
--- NOTE | 2023-04-13 10:02 | NUR ---
Malnutrition consult: Pt reports 14-23 lb wt loss with decreased appetite/PO intake per malnutrition risk screen with RN. Pt recently admitted and with a chair scaled wt of 137 kg 02/01, current standing scaled weight is 154 kg. Pt is +17 kg in two months. Pt with no documented decrease in muscle or edema. Pt currently lacks a minimum of two criteria for malnutrition. Will continue to follow. Addendum: 04/13/23 at [address] Amended: Links added.
[2023-04-13 11:11] VITALS: BP 137/78; PULSE 73; RESP 18; TEMP 98.9; O2SAT 94
[2023-04-13] MEDS ORDERED: PANT40TA54 PO (11:21)
[2023-04-13 11:53] VITALS: RESP 16
--- NOTE | 2023-04-13 13:48 | NUR ---
assisted Williams LOZA with discharging pt to her home on [address] via taxi, pt verbalized understanding dc instructions, no questions, IV to left forearm dc'd, cannula intact, pt taken to lobby in wheelchair, pt able to transfer self without assist from wheelchair to taxi
== END 2023-04-13 15:26 | disposition home or self-care (01) | DRG 198 ==
LOC: ER 09:38 → ED HOLD 13:03 → PCU 3S 04-13 08:00
PROVIDERS: ADMIT Internal Medicine; ATTEND Internal Medicine
PROC: 4A02XM4 Measurement of Cardiac Total Activity, External Approach (ICD-10-PCS; principal; 2023-04-12)
PROC: 3E073KZ Introduction of Other Diagnostic Substance into Coronary Artery, Percutaneous Approach (ICD-10-PCS; 2023-04-12)
PROC: B32T1ZZ Computerized Tomography (CT Scan) of Left Pulmonary Artery using Low Osmolar Contrast (ICD-10-PCS; 2023-04-12)
PROC: B3201ZZ Computerized Tomography (CT Scan) of Thoracic Aorta using Low Osmolar Contrast (ICD-10-PCS; 2023-04-12)
PROC: B32S1ZZ Computerized Tomography (CT Scan) of Right Pulmonary Artery using Low Osmolar Contrast (ICD-10-PCS; 2023-04-12)
DX: R07.89 Other chest pain (principal); I25.10 Atherosclerotic heart disease of native coronary artery without angina pectoris; Z68.43 Body mass index [BMI] 50.0-59.9, adult; E78.5 Hyperlipidemia, unspecified; F32.A Depression, unspecified; I10 Essential (primary) hypertension; E66.01 Morbid (severe) obesity due to excess calories; F41.9 Anxiety disorder, unspecified; Z86.711 Personal history of pulmonary embolism; Z86.73 Personal history of transient ischemic attack (TIA), and cerebral infarction without residual deficits; Z87.442 Personal history of urinary calculi; Z88.1 Allergy status to other antibiotic agents; Z90.710 Acquired absence of both cervix and uterus; Z56.0 Unemployment, unspecified; Z88.8 Allergy status to other drugs, medicaments and biological substances; Z79.899 Other long term (current) drug therapy
CPT/HCPCS: 36415; 71045; 71275; 78452; 80053; 80305; 83880; 84145; 84484; 85025; 85651; 87081; 93005; 93017; 93306; 99285; A9500; G0378; J1650; J2270; J2785; J3490; Q9967

== ENCOUNTER 2023-10-18 22:41 | Emergency (ER) | payer MEDICAID ==
[~2023-10-18] VITALS: Ht 167.6 cm; Wt 163.6 kg
[~2023-10-18 22:41] MED LIST changes: +ACET-1084 PO; +ALBU2.5V10 NEB; -LEVO750T68 PO; -ONDA4TAB12 PO; -OXYC1TAB17 PO; +PANT40TA54 PO
[2023-10-18 23:13] VITALS: TEMP 98.2
[2023-10-19 00:11] LABS: LYMPHOCYTES # (AUTO) 2.4 X10'3 (1.1-4.8); MONOCYTES # (AUTO) 0.6 X10'3 (0-0.9)
[2023-10-19 00:20] LABS: BASOPHILS # (AUTO) 0.1 X10'3 (0-0.2); BASOPHILS % (AUTO) 1.4 % (0-1); EOSINOPHILS # (AUTO) 0.1 X10'3 (0-0.9); EOSINOPHILS % (AUTO) 1.4 % (0-6); HEMATOCRIT 41.9 % (35.0-45.0); HEMOGLOBIN 14.2 g/dl (12.0-16.0); LYMPHOCYTES % (AUTO) 26.1 % (21-51); MEAN CORPUSCULAR HEMOGLOBIN 32.2 PG (27.0-31.0); MEAN CORPUSCULAR VOLUME 94.6 FL (78-98); NEUTROPHILS % (AUTO) 65.1 % (42-75); PLATELET COUNT 252 X10'3 (140-440); RED BLOOD COUNT 4.43 X10'6 (4.20-5.60); RED CELL DISTRIBUTION WIDTH 13.5 % (11.5-14.5); WHITE BLOOD COUNT 9.2 X10'3 (4.5-11.0)
[2023-10-19 00:29] LABS: ALANINE AMINOTRANSFERASE 66 U/L (12-78); ALBUMIN 2.9 G/DL (3.4-5.0); ALBUMIN/GLOBULIN RATIO 0.6 (1.1-1.5); ALKALINE PHOSPHATASE 119 IU/L (46-116); ANION GAP 10 (8-16); ASPARTATE AMINO TRANSFERASE 61 U/L (10-37); BILIRUBIN,TOTAL 0.4 MG/DL (0.1-1.0); BLOOD UREA NITROGEN 9 MG/DL (7-18); BUN/CREATININE RATIO 9.5 (10.0-20.0); CALCIUM 8.2 MG/DL (8.5-10.1); CHLORIDE 105 MMOL/L (99-107); CREATININE 0.95 MG/DL (0.40-0.90); GLUCOSE 149 MG/DL (70-104); POTASSIUM 3.9 MMOL/L (3.5-5.1); SODIUM 142 MMOL/L (135-145); TOTAL CARBON DIOXIDE 26.9 MMOL/L (24-32); TOTAL PROTEIN 7.7 G/DL (6.4-8.2); eCRCL 60 ML/MIN; eGFR 60 ML/MIN
[2023-10-19 00:37] LABS: BILIRUBIN,DIRECT 0.1 MG/DL (0-0.3); PRO BRAIN NATRIURETIC PEPTIDE < 30 PG/ML (0-125)
[2023-10-19 01:37] VITALS: BP 121/69; PULSE 82; RESP 16; O2SAT 96
== END 2023-10-19 01:35 | disposition home or self-care (01) ==
LOC: ER 22:41
DX: R07.9 Chest pain, unspecified (principal); I11.0 Hypertensive heart disease with heart failure; F31.9 Bipolar disorder, unspecified; Z88.1 Allergy status to other antibiotic agents; Z88.5 Allergy status to narcotic agent; Z79.899 Other long term (current) drug therapy
CPT/HCPCS: 71045; 80048; 80076; 83880; 84484; 85025; 93005; 99285

== ENCOUNTER 2023-11-05 21:24 | Emergency (ER) | payer MEDICAID ==
[~2023-11-05] VITALS: Ht 167.6 cm; Wt 160.0 kg
[2023-11-05 21:28] VITALS: BP 164/109; PULSE 82; RESP 18; TEMP 98; O2SAT 99
[2023-11-06] MEDS ORDERED: PERM60CR19 TOP (15:23)
[2023-11-06] MEDS ORDERED: CEPH-585 PO (15:23)
== END 2023-11-06 00:49 | disposition left against medical advice (07) ==
LOC: ER 21:25
DX: R21 Rash and other nonspecific skin eruption (principal); Z53.21 Procedure and treatment not carried out due to patient leaving prior to being seen by health care provider
CPT/HCPCS: 99281

== ENCOUNTER 2023-11-06 14:01 | Emergency (ER) | payer MEDICAID ==
[~2023-11-06] VITALS: Ht 167.6 cm; Wt 163.6 kg
[2023-11-06 14:35] VITALS: BP 162/94; PULSE 99; RESP 16; TEMP 98.3; O2SAT 96
[2023-11-06 14:36] LABS: BILIRUBIN,URINE NEGATIVE (Neg); CLARITY,URINE SLIGHTLY CLOUDY (Clear); COLOR,URINE YELLOW (Yellow); GLUCOSE, URINE NEGATIVE (Neg); KETONES,URINE TRACE mg/dl (Neg); LEUKOCYTE ESTERASE ,URINE NEGATIVE (Neg); NITRITES, URINE POSITIVE (Neg); OCCULT BLOOD,URINE NEGATIVE (Neg); PH,URINE 5.5 (4.8-8.0); PROTEIN,URINE NEGATIVE (Neg); UROBILINOGEN,URINE 0.2 E.U/dL (0.2-1.0)
[2023-11-06 14:37] LABS: URINE HCG NEGATIVE (NEG)
[2023-11-06 14:49] LABS: UA COLLECTION TYPE CLN CATCH MIDSTREAM
[2023-11-06 14:50] LABS: RBC,URINE NONE SEEN /HPF (0-2)
[2023-11-06 14:51] LABS: BACTERIA,URINE 3+ /HPF (Neg); MUCUS STRANDS NONE SEEN /LPF (Neg); SQUAMOUS EPITHELIAL CELL,UR FEW /LPF (FEW)
[2023-11-06] MEDS ORDERED: CEPH-585 PO (15:23)
[2023-11-06] MEDS ORDERED: PERM60CR19 TOP (15:23)
[2023-11-06] MEDS: CefTRIAXone 1000mg IM Kit (w/lidocaine diluent) IM ONE (15:43)
== END 2023-11-06 15:49 | disposition home or self-care (01) ==
LOC: ER 14:02
DX: N39.0 Urinary tract infection, site not specified (principal); I11.0 Hypertensive heart disease with heart failure; Z88.1 Allergy status to other antibiotic agents; Z88.8 Allergy status to other drugs, medicaments and biological substances; Z79.899 Other long term (current) drug therapy
CPT/HCPCS: 81001; 81025; 87088; 99283

== ENCOUNTER 2023-11-06 22:43 | Emergency (ER) | payer MEDICAID ==
[~2023-11-06] VITALS: Ht 167.6 cm; Wt 160.0 kg
[~2023-11-06 22:43] MED LIST changes: +CEPH-585 PO; +PERM60CR19 TOP
[2023-11-06 23:24] LABS: BASOPHILS # (AUTO) 0.1 X10'3 (0-0.2); BASOPHILS % (AUTO) 0.9 % (0-1); EOSINOPHILS # (AUTO) 0.2 X10'3 (0-0.9); EOSINOPHILS % (AUTO) 2.4 % (0-6); HEMATOCRIT 45.6 % (35.0-45.0); HEMOGLOBIN 15.3 g/dl (12.0-16.0); LYMPHOCYTES # (AUTO) 2.6 X10'3 (1.1-4.8); LYMPHOCYTES % (AUTO) 27.8 % (21-51); MEAN CORPUSCULAR HEMOGLOBIN 31.6 PG (27.0-31.0); MEAN CORPUSCULAR HGB CONC 33.5 g/dL (33.0-36.5); MEAN CORPUSCULAR VOLUME 94.2 FL (78-98); MONOCYTES # (AUTO) 0.7 X10'3 (0-0.9); MONOCYTES % (AUTO) 7.8 % (2-12); NEUTROPHILS # (AUTO) 5.7 X10'3 (1.8-7.7); NEUTROPHILS % (AUTO) 61.1 % (42-75); PLATELET COUNT 213 X10'3 (140-440); RED BLOOD COUNT 4.84 X10'6 (4.20-5.60); RED CELL DISTRIBUTION WIDTH 13.4 % (11.5-14.5); WHITE BLOOD COUNT 9.3 X10'3 (4.5-11.0)
[2023-11-06 23:37] LABS: ALANINE AMINOTRANSFERASE 51 U/L (12-78); ALBUMIN 3.2 G/DL (3.4-5.0); ALBUMIN/GLOBULIN RATIO 0.6 (1.1-1.5); ALKALINE PHOSPHATASE 152 IU/L (46-116); ANION GAP 8 (8-16); ASPARTATE AMINO TRANSFERASE 43 U/L (10-37); BILIRUBIN,TOTAL 0.3 MG/DL (0.1-1.0); BLOOD UREA NITROGEN 16 MG/DL (7-18); BUN/CREATININE RATIO 15.5 (10.0-20.0); CALCIUM 8.4 MG/DL (8.5-10.1); CHLORIDE 104 MMOL/L (99-107); CREATININE 1.03 MG/DL (0.40-0.90); GLUCOSE 207 MG/DL (70-104); LIPASE 23 U/L (16-77); POTASSIUM 3.9 MMOL/L (3.5-5.1); SODIUM 138 MMOL/L (135-145); TOTAL CARBON DIOXIDE 26.5 MMOL/L (24-32); TOTAL PROTEIN 8.4 G/DL (6.4-8.2); eCRCL 55 ML/MIN; eGFR 55 ML/MIN
[2023-11-07 00:05] LABS: URINE HCG NEGATIVE (NEG)
[2023-11-07 00:07] LABS: BILIRUBIN,URINE NEGATIVE (Neg); CLARITY,URINE CLOUDY (Clear); COLOR,URINE YELLOW (Yellow); GLUCOSE, URINE NEGATIVE (Neg); KETONES,URINE NEGATIVE (Neg); LEUKOCYTE ESTERASE ,URINE NEGATIVE (Neg); NITRITES, URINE POSITIVE (Neg); OCCULT BLOOD,URINE TRACE-INTACT (Neg); PH,URINE 5.5 (4.8-8.0); PROTEIN,URINE NEGATIVE (Neg); UROBILINOGEN,URINE 0.2 E.U/dL (0.2-1.0)
[2023-11-07 00:14] LABS: UA COLLECTION TYPE NON-SPECIFIED
[2023-11-07 00:17] LABS: BACTERIA,URINE 2+ /HPF (Neg); CAL OXALATE CRYSTALS 2+ /HPF (NEGATIVE); WBC CLUMPS,URINE FEW /HPF (NEGATIVE)
[2023-11-07 00:18] LABS: RBC,URINE 0-2 /HPF (0-2)
[2023-11-07 00:19] LABS: SQUAMOUS EPITHELIAL CELL,UR MANY /LPF (FEW)
[2023-11-07] MEDS: CefTRIAXone 1000mg IM Kit (w/lidocaine diluent) IM STA (01:30)
[2023-11-07 01:35] VITALS: BP 156/90; PULSE 78; RESP 16; TEMP 98.6; O2SAT 99
== END 2023-11-07 01:42 | disposition home or self-care (01) ==
LOC: ER 22:48
DX: N39.0 Urinary tract infection, site not specified (principal); Z88.1 Allergy status to other antibiotic agents; Z88.6 Allergy status to analgesic agent; Z88.5 Allergy status to narcotic agent; Z79.2 Long term (current) use of antibiotics; Z79.899 Other long term (current) drug therapy; Z90.710 Acquired absence of both cervix and uterus; Z90.49 Acquired absence of other specified parts of digestive tract
CPT/HCPCS: 36415; 74176; 80053; 81001; 81025; 83690; 85025; 96372; 99285; J0696; 81003

== ENCOUNTER 2023-11-15 13:22 | Inpatient (IN) | payer MEDICAID ==
[~2023-11-15] VITALS: Ht 167.6 cm; Wt 168.4 kg
[~2023-11-15 13:22] MED LIST changes: -ALBU2.5V10 NEB; -PANT40TA54 PO
[2023-11-15] MEDS ORDERED: SULF1TAB45 PO (17:36)
[2023-11-15 20:04] LABS: BASOPHILS % (AUTO) 0.4 % (0-1); EOSINOPHILS # (AUTO) 0.2 X10'3 (0-0.9); EOSINOPHILS % (AUTO) 2.1 % (0-6); HEMATOCRIT 45.4 % (35.0-45.0); HEMOGLOBIN 15.3 g/dl (12.0-16.0); LYMPHOCYTES # (AUTO) 1.8 X10'3 (1.1-4.8); LYMPHOCYTES % (AUTO) 16.7 % (21-51); MEAN CORPUSCULAR HEMOGLOBIN 31.9 PG (27.0-31.0); MEAN CORPUSCULAR HGB CONC 33.7 g/dL (33.0-36.5); MEAN CORPUSCULAR VOLUME 94.7 FL (78-98); MEAN PLATELET VOLUME 7.9 FL (7.4-10.4); NEUTROPHILS # (AUTO) 7.6 X10'3 (1.8-7.7); NEUTROPHILS % (AUTO) 71.8 % (42-75); PLATELET COUNT 249 X10'3 (140-440); RED CELL DISTRIBUTION WIDTH 14.1 % (11.5-14.5); WHITE BLOOD COUNT 10.7 X10'3 (4.5-11.0)
[2023-11-15 20:19] LABS: ALANINE AMINOTRANSFERASE 48 U/L (12-78); ALBUMIN/GLOBULIN RATIO 0.6 (1.1-1.5); ALKALINE PHOSPHATASE 110 IU/L (46-116); ANION GAP 7 (8-16); ASPARTATE AMINO TRANSFERASE 47 U/L (10-37); BILIRUBIN,TOTAL 0.6 MG/DL (0.1-1.0); BLOOD UREA NITROGEN 10 MG/DL (7-18); BUN/CREATININE RATIO 13.3 (10.0-20.0); CALCIUM 8.8 MG/DL (8.5-10.1); CHLORIDE 106 MMOL/L (99-107); CREATININE 0.75 MG/DL (0.40-0.90); GLUCOSE 96 MG/DL (70-104); POTASSIUM 4.3 MMOL/L (3.5-5.1); SODIUM 139 MMOL/L (135-145); TOTAL CARBON DIOXIDE 25.7 MMOL/L (24-32); TOTAL PROTEIN 8.1 G/DL (6.4-8.2); eCRCL 76 ML/MIN; eGFR 79 ML/MIN
[2023-11-15 20:21] LABS: LIPASE 19 U/L (16-77)
[2023-11-15] MEDS: normal saline 1000ML IV soln IVB ONE (21:37)
[2023-11-15] MEDS: ondansetron/PF 4mg/2ml inj IV ONE (21:37)
[2023-11-15] MEDS: morphine 4 MG/ML inj SYRINge IV PRN (21:37)
[2023-11-15] MEDS: mag hydrox/Alum hydrox/simeth 30ml oral suspension PO ONE (22:32)
[2023-11-15] MEDS: LIDOcaine 2% Viscous 15ml cup MM ONE (22:33)
[2023-11-15] MEDS ORDERED: magnesium 4gm in 100ml NS 100 ML IV PRN (23:35)
[2023-11-15] MEDS ORDERED: magnesium Cl slow-release 64mg tablet PO PRN (23:35)
[2023-11-15] MEDS ORDERED: magnesium 2GM in 50ml NS 50 ML IV PRN (23:35)
[2023-11-15] MEDS ORDERED: potassium Cl 20 mEq SR tablet PO PRN ×2 (23:35)
[2023-11-15] MEDS ORDERED: mag hydrox/Alum hydrox/simeth 30ml oral suspension PO PRN (23:35)
[2023-11-15] MEDS ORDERED: potassium Cl 40MEQ/1/2NS 520ml 520 ML IV PRN (23:35)
[2023-11-15] MEDS ORDERED: magnesium hydroxide 30ml (MOM) UD suspension PO PRN (23:35)
[2023-11-16] MEDS ORDERED: MEROPENEM 1GM/NS 100ML IVPB 100 ML IV SCH
[2023-11-16] MEDS: normal saline 1000ml 1,000 ML IV SCH (00:36)
[2023-11-16] MEDS: MEROPENEM 1GM/NS 100ML IVPB 100 ML IV ONE (00:36)
[2023-11-16 00:47] LABS: BILIRUBIN,URINE NEGATIVE (Neg); CLARITY,URINE CLOUDY (Clear); COLOR,URINE YELLOW (Yellow); GLUCOSE, URINE NEGATIVE (Neg); KETONES,URINE NEGATIVE (Neg); LEUKOCYTE ESTERASE ,URINE NEGATIVE (Neg); NITRITES, URINE NEGATIVE (Neg); OCCULT BLOOD,URINE NEGATIVE (Neg); PH,URINE 6.5 (4.8-8.0); PROTEIN,URINE NEGATIVE (Neg); UROBILINOGEN,URINE 0.2 E.U/dL (0.2-1.0)
[2023-11-16 00:50] LABS: UA COLLECTION TYPE CLN CATCH MIDSTREAM
[2023-11-16 00:57] LABS: MUCUS STRANDS FEW /LPF (Neg); SQUAMOUS EPITHELIAL CELL,UR MANY /LPF (FEW)
[2023-11-16 01:00] VITALS: BP 143/75; PULSE 83; RESP 18; TEMP 97.5; O2SAT 97
[2023-11-16 01:00] LABS: COARSE GRANULAR CAST 0-3 /LPF (NEGATIVE)
[2023-11-16 01:03] LABS: BACTERIA,URINE FEW /HPF (Neg); RBC,URINE 0-2 /HPF (0-2)
[2023-11-16] MEDS: ondansetron/PF 4mg/2ml inj IV PRN (01:17)
[2023-11-16] MEDS ORDERED: PERFLUTREN PROTEIN-A MICROSPHR (Optison) 0.22 MG/ML 3ML VIAL IV PRN (02:50)
[2023-11-16 06:00] VITALS: BP 116/53; PULSE 81; RESP 16; TEMP 98.7; O2SAT 93
[2023-11-16] MEDS: heparin, porcine 5000 units/ml vial SQ SCH (08:00)
[2023-11-16] MEDS: docusate sod 100mg capsule PO SCH (08:00)
[2023-11-16] MEDS: furosemide 40mg tablet PO SCH (08:00)
[2023-11-16] MEDS: K and/or MAG REPLACEMENT MC SCH (08:00)
[2023-11-16] MEDS: MEROPENEM 1GM/NS 100ML IVPB 100 ML IV SCH (08:02)
[2023-11-16] MEDS: aspirin 81mg, enteric-coated 1 TAB TABLET.DR PO SCH (08:03)
[2023-11-16 09:27] LABS: ALANINE AMINOTRANSFERASE 47 U/L (12-78); ALBUMIN 2.7 G/DL (3.4-5.0); ALBUMIN/GLOBULIN RATIO 0.6 (1.1-1.5); ALKALINE PHOSPHATASE 105 IU/L (46-116); ANION GAP 9 (8-16); ASPARTATE AMINO TRANSFERASE 44 U/L (10-37); BILIRUBIN,TOTAL 0.7 MG/DL (0.1-1.0); BLOOD UREA NITROGEN 11 MG/DL (7-18); BUN/CREATININE RATIO 13.1 (10.0-20.0); CALCIUM 7.9 MG/DL (8.5-10.1); CHLORIDE 107 MMOL/L (99-107); CREATININE 0.84 MG/DL (0.40-0.90); GLUCOSE 116 MG/DL (70-104); MAGNESIUM 1.9 MG/DL (1.5-2.4); PHOSPHORUS 3.4 MG/DL (2.3-4.5); POTASSIUM 4.1 MMOL/L (3.5-5.1); SODIUM 141 MMOL/L (135-145); TOTAL CARBON DIOXIDE 25.5 MMOL/L (24-32); TOTAL PROTEIN 6.9 G/DL (6.4-8.2); eCRCL 68 ML/MIN; eGFR 69 ML/MIN
[2023-11-16 10:00] VITALS: BP 146/75; PULSE 77; RESP 18; TEMP 97.5; O2SAT 94
[2023-11-16] MEDS: HYDROcodone/acetaminophen 5mg/325mg tablet PO PRN (12:31)
[2023-11-16 18:00] VITALS: BP 136/78; PULSE 87; RESP 18; TEMP 97.9; O2SAT 94
[2023-11-16 19:19] LABS: BILIRUBIN,URINE NEGATIVE (Neg); COLOR,URINE YELLOW (Yellow); GLUCOSE, URINE NEGATIVE (Neg); KETONES,URINE NEGATIVE (Neg); LEUKOCYTE ESTERASE ,URINE NEGATIVE (Neg); NITRITES, URINE NEGATIVE (Neg); OCCULT BLOOD,URINE NEGATIVE (Neg); PROTEIN,URINE NEGATIVE (Neg); UROBILINOGEN,URINE 0.2 E.U/dL (0.2-1.0)
[2023-11-16 19:21] LABS: CLARITY,URINE SLIGHTLY CLOUDY (Clear); UA COLLECTION TYPE VOIDED
[2023-11-16 19:35] LABS: BACTERIA,URINE FEW /HPF (Neg); RBC,URINE 0-2 /HPF (0-2); SQUAMOUS EPITHELIAL CELL,UR MANY /LPF (FEW); TRANSITIONAL EPI CELLS,URINE FEW /HPF; WBC,URINE 0-4 /HPF (0-4)
[2023-11-16 19:36] LABS: MUCUS STRANDS FEW /LPF (Neg)
[2023-11-16 22:00] VITALS: BP 146/81; PULSE 84; RESP 18; TEMP 97.2; O2SAT 93
[2023-11-17 06:37] VITALS: BP 136/68; PULSE 88; RESP 17; TEMP 98; O2SAT 95
[2023-11-17 06:59] LABS: BASOPHILS % (AUTO) 0.9 % (0-1); EOSINOPHILS # (AUTO) 0.2 X10'3 (0-0.9); EOSINOPHILS % (AUTO) 3.6 % (0-6); HEMATOCRIT 37.4 % (35.0-45.0); HEMOGLOBIN 12.6 g/dl (12.0-16.0); LYMPHOCYTES # (AUTO) 1.4 X10'3 (1.1-4.8); LYMPHOCYTES % (AUTO) 25.6 % (21-51); MEAN CORPUSCULAR HEMOGLOBIN 31.9 PG (27.0-31.0); MEAN CORPUSCULAR HGB CONC 33.6 g/dL (33.0-36.5); MEAN CORPUSCULAR VOLUME 94.9 FL (78-98); MONOCYTES # (AUTO) 0.6 X10'3 (0-0.9); NEUTROPHILS # (AUTO) 3.3 X10'3 (1.8-7.7); NEUTROPHILS % (AUTO) 58.9 % (42-75); PLATELET COUNT 201 X10'3 (140-440); RED BLOOD COUNT 3.94 X10'6 (4.20-5.60); RED CELL DISTRIBUTION WIDTH 13.7 % (11.5-14.5); WHITE BLOOD COUNT 5.6 X10'3 (4.5-11.0)
[2023-11-17 07:15] LABS: ALANINE AMINOTRANSFERASE 39 U/L (12-78); ALBUMIN 2.5 G/DL (3.4-5.0); ALBUMIN/GLOBULIN RATIO 0.6 (1.1-1.5); ALKALINE PHOSPHATASE 123 IU/L (46-116); ANION GAP 4 (8-16); ASPARTATE AMINO TRANSFERASE 36 U/L (10-37); BILIRUBIN,TOTAL 0.2 MG/DL (0.1-1.0); BLOOD UREA NITROGEN 13 MG/DL (7-18); CALCIUM 7.7 MG/DL (8.5-10.1); CHLORIDE 106 MMOL/L (99-107); CREATININE 0.93 MG/DL (0.40-0.90); GLUCOSE 120 MG/DL (70-104); MAGNESIUM 1.8 MG/DL (1.5-2.4); PHOSPHORUS 3.3 MG/DL (2.3-4.5); POTASSIUM 4.3 MMOL/L (3.5-5.1); SODIUM 138 MMOL/L (135-145); TOTAL CARBON DIOXIDE 28.4 MMOL/L (24-32); TOTAL PROTEIN 6.9 G/DL (6.4-8.2); eCRCL 61 ML/MIN; eGFR 62 ML/MIN
[2023-11-17] MEDS: acyclovir 200 MG capsule PO SCH (13:40)
[2023-11-17] MEDS: triamcinolone acetonide 0.1% ointment 15gm TP SCH (13:41)
[2023-11-17 18:00] VITALS: BP 154/79; PULSE 74; RESP 15; TEMP 98.4; O2SAT 95
[2023-11-17 22:00] VITALS: BP 166/65; PULSE 107; RESP 16; TEMP 97.5; O2SAT 98
[2023-11-18 06:26] VITALS: BP 141/86; PULSE 70; RESP 16; O2SAT 96
[2023-11-18 08:54] LABS: BASOPHILS % (AUTO) 0.6 % (0-1); EOSINOPHILS # (AUTO) 0.2 X10'3 (0-0.9); EOSINOPHILS % (AUTO) 3.5 % (0-6); HEMATOCRIT 38.7 % (35.0-45.0); LYMPHOCYTES # (AUTO) 1.5 X10'3 (1.1-4.8); LYMPHOCYTES % (AUTO) 23.4 % (21-51); MEAN CORPUSCULAR HEMOGLOBIN 32.1 PG (27.0-31.0); MEAN CORPUSCULAR HGB CONC 33.7 g/dL (33.0-36.5); MEAN CORPUSCULAR VOLUME 95.2 FL (78-98); MEAN PLATELET VOLUME 8.5 FL (7.4-10.4); MONOCYTES # (AUTO) 0.6 X10'3 (0-0.9); MONOCYTES % (AUTO) 9.5 % (2-12); NEUTROPHILS # (AUTO) 3.9 X10'3 (1.8-7.7); PLATELET COUNT 213 X10'3 (140-440); RED BLOOD COUNT 4.06 X10'6 (4.20-5.60); RED CELL DISTRIBUTION WIDTH 13.5 % (11.5-14.5); WHITE BLOOD COUNT 6.2 X10'3 (4.5-11.0)
[2023-11-18 09:00] LABS: ALANINE AMINOTRANSFERASE 37 U/L (12-78); ALBUMIN 2.7 G/DL (3.4-5.0); ALBUMIN/GLOBULIN RATIO 0.6 (1.1-1.5); ALKALINE PHOSPHATASE 118 IU/L (46-116); ANION GAP 10 (8-16); ASPARTATE AMINO TRANSFERASE 35 U/L (10-37); BILIRUBIN,TOTAL 0.2 MG/DL (0.1-1.0); BLOOD UREA NITROGEN 11 MG/DL (7-18); BUN/CREATININE RATIO 12.9 (10.0-20.0); CALCIUM 8.4 MG/DL (8.5-10.1); CHLORIDE 106 MMOL/L (99-107); CREATININE 0.85 MG/DL (0.40-0.90); GLUCOSE 122 MG/DL (70-104); MAGNESIUM 1.8 MG/DL (1.5-2.4); PHOSPHORUS 2.7 MG/DL (2.3-4.5); POTASSIUM 4.3 MMOL/L (3.5-5.1); SODIUM 142 MMOL/L (135-145); TOTAL CARBON DIOXIDE 25.9 MMOL/L (24-32); TOTAL PROTEIN 7.3 G/DL (6.4-8.2); eCRCL 67 ML/MIN; eGFR 68 ML/MIN
[2023-11-18 10:00] VITALS: BP 147/71; PULSE 82; RESP 16; TEMP 98.7; O2SAT 95
[2023-11-18 18:20] VITALS: BP 151/69; PULSE 81; RESP 18; TEMP 97.9; O2SAT 97
[2023-11-18 20:00] VITALS: BP 164/86; PULSE 81; RESP 18; TEMP 97.9; O2SAT 95; O2SAT 97
[2023-11-18] MEDS: guaiFENesin/DM 10ml UD oral syrup PO PRN (21:46)
[2023-11-18 22:00] VITALS: BP 164/86; PULSE 81; RESP 18; TEMP 97.9; O2SAT 95
[2023-11-19 05:00] VITALS: BP 146/68; PULSE 89; RESP 17; TEMP 98; O2SAT 95
[2023-11-19 07:21] LABS: BASOPHILS % (AUTO) 0.7 % (0-1); EOSINOPHILS # (AUTO) 0.2 X10'3 (0-0.9); EOSINOPHILS % (AUTO) 3.6 % (0-6); HEMATOCRIT 38.7 % (35.0-45.0); HEMOGLOBIN 13.2 g/dl (12.0-16.0); LYMPHOCYTES % (AUTO) 31.2 % (21-51); MEAN CORPUSCULAR HEMOGLOBIN 32.4 PG (27.0-31.0); MEAN CORPUSCULAR HGB CONC 34.2 g/dL (33.0-36.5); MEAN CORPUSCULAR VOLUME 94.6 FL (78-98); MEAN PLATELET VOLUME 7.9 FL (7.4-10.4); MONOCYTES # (AUTO) 0.6 X10'3 (0-0.9); MONOCYTES % (AUTO) 8.6 % (2-12); NEUTROPHILS # (AUTO) 3.7 X10'3 (1.8-7.7); NEUTROPHILS % (AUTO) 55.9 % (42-75); PLATELET COUNT 227 X10'3 (140-440); RED BLOOD COUNT 4.09 X10'6 (4.20-5.60); RED CELL DISTRIBUTION WIDTH 13.8 % (11.5-14.5); WHITE BLOOD COUNT 6.5 X10'3 (4.5-11.0)
[2023-11-19 07:47] LABS: ALANINE AMINOTRANSFERASE 44 U/L (12-78); ALBUMIN 2.6 G/DL (3.4-5.0); ALBUMIN/GLOBULIN RATIO 0.6 (1.1-1.5); ALKALINE PHOSPHATASE 114 IU/L (46-116); ANION GAP 10 (8-16); ASPARTATE AMINO TRANSFERASE 33 U/L (10-37); BILIRUBIN,TOTAL 0.2 MG/DL (0.1-1.0); BLOOD UREA NITROGEN 9 MG/DL (7-18); BUN/CREATININE RATIO 10.3 (10.0-20.0); CALCIUM 8.5 MG/DL (8.5-10.1); CHLORIDE 107 MMOL/L (99-107); CREATININE 0.87 MG/DL (0.40-0.90); GLUCOSE 89 MG/DL (70-104); PHOSPHORUS 3.2 MG/DL (2.3-4.5); POTASSIUM 4.2 MMOL/L (3.5-5.1); SODIUM 142 MMOL/L (135-145); TOTAL CARBON DIOXIDE 25.1 MMOL/L (24-32); TOTAL PROTEIN 7.3 G/DL (6.4-8.2); eCRCL 65 ML/MIN; eGFR 67 ML/MIN
[2023-11-19 08:00] VITALS: RESP 17; O2SAT 95
[2023-11-19 10:00] VITALS: BP 139/67; PULSE 74; RESP 18; TEMP 97.9; O2SAT 95
[2023-11-19] MEDS: benzocaine/menthol oral lozeng 1 EACH BOX MM PRN (11:04)
[2023-11-19 18:00] VITALS: BP 153/89; PULSE 77; RESP 18; TEMP 97.6; O2SAT 95
[2023-11-19 20:10] VITALS: RESP 18; O2SAT 95
[2023-11-19 22:00] VITALS: BP 147/79; PULSE 71; RESP 20; TEMP 97.8; O2SAT 95
[2023-11-20 07:09] LABS: BASOPHILS # (AUTO) 0.1 X10'3 (0-0.2); BASOPHILS % (AUTO) 0.7 % (0-1); EOSINOPHILS # (AUTO) 0.3 X10'3 (0-0.9); EOSINOPHILS % (AUTO) 3.5 % (0-6); HEMATOCRIT 38.7 % (35.0-45.0); HEMOGLOBIN 13.2 g/dl (12.0-16.0); LYMPHOCYTES # (AUTO) 1.6 X10'3 (1.1-4.8); LYMPHOCYTES % (AUTO) 22.3 % (21-51); MEAN CORPUSCULAR HEMOGLOBIN 32.2 PG (27.0-31.0); MEAN CORPUSCULAR VOLUME 94.5 FL (78-98); MEAN PLATELET VOLUME 7.8 FL (7.4-10.4); MONOCYTES # (AUTO) 0.5 X10'3 (0-0.9); MONOCYTES % (AUTO) 7.5 % (2-12); NEUTROPHILS # (AUTO) 4.8 X10'3 (1.8-7.7); PLATELET COUNT 237 X10'3 (140-440); RED BLOOD COUNT 4.09 X10'6 (4.20-5.60); RED CELL DISTRIBUTION WIDTH 13.7 % (11.5-14.5); WHITE BLOOD COUNT 7.3 X10'3 (4.5-11.0)
[2023-11-20 07:27] LABS: ALANINE AMINOTRANSFERASE 39 U/L (12-78); ALBUMIN 2.6 G/DL (3.4-5.0); ALBUMIN/GLOBULIN RATIO 0.6 (1.1-1.5); ALKALINE PHOSPHATASE 110 IU/L (46-116); ANION GAP 8 (8-16); ASPARTATE AMINO TRANSFERASE 34 U/L (10-37); BILIRUBIN,TOTAL 0.4 MG/DL (0.1-1.0); BLOOD UREA NITROGEN 9 MG/DL (7-18); BUN/CREATININE RATIO 10.8 (10.0-20.0); CALCIUM 8.3 MG/DL (8.5-10.1); CHLORIDE 105 MMOL/L (99-107); CREATININE 0.83 MG/DL (0.40-0.90); GLUCOSE 114 MG/DL (70-104); MAGNESIUM 1.9 MG/DL (1.5-2.4); PHOSPHORUS 3.2 MG/DL (2.3-4.5); POTASSIUM 4.1 MMOL/L (3.5-5.1); SODIUM 138 MMOL/L (135-145); TOTAL CARBON DIOXIDE 25.1 MMOL/L (24-32); TOTAL PROTEIN 7.3 G/DL (6.4-8.2); eCRCL 68 ML/MIN; eGFR 70 ML/MIN
[2023-11-20 10:00] VITALS: BP 163/73; PULSE 76; RESP 16; TEMP 98.2; O2SAT 95
[2023-11-20 18:00] VITALS: BP 168/75; PULSE 72; RESP 18; TEMP 98.3; O2SAT 96
[2023-11-20 20:00] VITALS: RESP 18; O2SAT 95
[2023-11-20 22:00] VITALS: BP 152/79; PULSE 71; RESP 16; TEMP 97.9; O2SAT 93
[2023-11-21] MEDS: loperamide 2mg capsule PO PRN (00:20)
[2023-11-21 06:00] VITALS: BP 148/80; PULSE 69; RESP 20; TEMP 97.5; O2SAT 96
[2023-11-21 11:00] VITALS: BP 158/71; PULSE 74; RESP 18; TEMP 98; O2SAT 96
[2023-11-21 20:00] VITALS: RESP 20; O2SAT 96
[2023-11-21 22:00] VITALS: BP 158/88; PULSE 72; RESP 20; TEMP 97.5; O2SAT 96
[2023-11-22 06:00] VITALS: BP 143/77; PULSE 68; RESP 20; TEMP 97.8; O2SAT 99
[2023-11-22 08:00] VITALS: RESP 20; O2SAT 99
[2023-11-22 10:00] VITALS: BP 161/95; PULSE 74; RESP 18; TEMP 98.2; O2SAT 95
[2023-11-22 18:00] VITALS: BP 130/78; PULSE 70; RESP 18; TEMP 97.9; O2SAT 96
[2023-11-22 22:00] VITALS: BP 141/75; PULSE 79; RESP 16; TEMP 97.6; O2SAT 94
[2023-11-23 07:00] VITALS: BP 150/88; PULSE 81; RESP 15; TEMP 98.8; O2SAT 95
[2023-11-23 08:45] VITALS: RESP 18; O2SAT 97
[2023-11-23 10:00] VITALS: BP 129/81; PULSE 78; RESP 20; TEMP 98.3; O2SAT 100
[2023-11-23 18:00] VITALS: BP 141/76; PULSE 82; RESP 18; TEMP 97.4; O2SAT 96
[2023-11-23 20:00] VITALS: RESP 18; O2SAT 94
[2023-11-23 22:00] VITALS: BP 165/95; PULSE 74; RESP 18; TEMP 97.8; O2SAT 94
[2023-11-24 07:03] VITALS: BP 158/84; PULSE 80; RESP 16; TEMP 98; O2SAT 95
[2023-11-24 08:00] VITALS: RESP 16; O2SAT 95
[2023-11-24 10:00] VITALS: BP 164/89; PULSE 76; RESP 16; TEMP 97.5; O2SAT 98
[2023-11-24] MEDS ORDERED: normal saline 500ml IV soln 500 ML IV PRN (10:50)
[2023-11-24 19:03] VITALS: BP 164/89; PULSE 76; RESP 16; TEMP 97.5; O2SAT 98
[2023-11-24 22:00] VITALS: BP 152/76; PULSE 80; RESP 18; TEMP 98.1; O2SAT 95
[2023-11-25 06:27] VITALS: BP 138/78; PULSE 72; RESP 20; TEMP 97.8; O2SAT 95
[2023-11-25 08:00] VITALS: RESP 20; O2SAT 95
[2023-11-25] MEDS: lisinopril 20mg tablet PO SCH (09:05)
[2023-11-25 10:00] VITALS: BP 138/90; PULSE 79; RESP 16; TEMP 98.7; O2SAT 95
[2023-11-25 18:00] VITALS: BP 161/97; PULSE 77; RESP 20; TEMP 97.4; O2SAT 95
[2023-11-25 20:40] VITALS: RESP 18; O2SAT 95
[2023-11-25 22:33] VITALS: BP 135/78; PULSE 73; RESP 16; O2SAT 93
[2023-11-26 06:00] VITALS: BP 142/86; PULSE 67; RESP 16; TEMP 98.7; O2SAT 96
[2023-11-26 08:00] VITALS: RESP 16; O2SAT 98
[2023-11-26 10:00] VITALS: BP 162/91; PULSE 91; RESP 16; TEMP 97.8; O2SAT 96
[2023-11-26 18:00] VITALS: BP 142/73; PULSE 82; RESP 16; TEMP 98.8; O2SAT 98
[2023-11-26 20:00] VITALS: RESP 16; O2SAT 98
[2023-11-26 22:00] VITALS: BP 141/80; PULSE 95; RESP 18; TEMP 98.6; O2SAT 97
[2023-11-27] MEDS: HALLS - SOOTHE MENTHOL 1.8 MG cough drop LOZENGE MM PRN (05:08)
[2023-11-27 06:00] VITALS: BP 137/71; PULSE 77; RESP 16; TEMP 97.7; O2SAT 95
[2023-11-27 08:00] VITALS: RESP 16; O2SAT 98
[2023-11-27 09:07] LABS: BASOPHILS # (AUTO) 0.1 X10'3 (0-0.2); BASOPHILS % (AUTO) 0.9 % (0-1); EOSINOPHILS # (AUTO) 0.2 X10'3 (0-0.9); EOSINOPHILS % (AUTO) 2.2 % (0-6); HEMATOCRIT 40.5 % (35.0-45.0); HEMOGLOBIN 13.4 g/dl (12.0-16.0); LYMPHOCYTES # (AUTO) 2.1 X10'3 (1.1-4.8); LYMPHOCYTES % (AUTO) 25.2 % (21-51); MEAN CORPUSCULAR HEMOGLOBIN 31.3 PG (27.0-31.0); MEAN CORPUSCULAR HGB CONC 33.1 g/dL (33.0-36.5); MEAN CORPUSCULAR VOLUME 94.5 FL (78-98); MEAN PLATELET VOLUME 7.7 FL (7.4-10.4); MONOCYTES # (AUTO) 0.8 X10'3 (0-0.9); MONOCYTES % (AUTO) 9.2 % (2-12); NEUTROPHILS # (AUTO) 5.1 X10'3 (1.8-7.7); NEUTROPHILS % (AUTO) 62.5 % (42-75); PLATELET COUNT 228 X10'3 (140-440); RED BLOOD COUNT 4.29 X10'6 (4.20-5.60); RED CELL DISTRIBUTION WIDTH 13.8 % (11.5-14.5); WHITE BLOOD COUNT 8.2 X10'3 (4.5-11.0)
[2023-11-27 10:00] VITALS: BP 168/80; PULSE 77; RESP 16; TEMP 97.4; O2SAT 97
[2023-11-27 10:16] LABS: ALANINE AMINOTRANSFERASE 59 U/L (12-78); ALBUMIN 2.6 G/DL (3.4-5.0); ALBUMIN/GLOBULIN RATIO 0.5 (1.1-1.5); ALKALINE PHOSPHATASE 113 IU/L (46-116); ANION GAP 8 (8-16); ASPARTATE AMINO TRANSFERASE 39 U/L (10-37); BLOOD UREA NITROGEN 13 MG/DL (7-18); BUN/CREATININE RATIO 16.7 (10.0-20.0); CALCIUM 8.2 MG/DL (8.5-10.1); CHLORIDE 103 MMOL/L (99-107); CREATININE 0.78 MG/DL (0.40-0.90); GLUCOSE 131 MG/DL (70-104); POTASSIUM 3.9 MMOL/L (3.5-5.1); SODIUM 137 MMOL/L (135-145); TOTAL CARBON DIOXIDE 26.3 MMOL/L (24-32); TOTAL PROTEIN 7.5 G/DL (6.4-8.2); eCRCL 73 ML/MIN; eGFR 76 ML/MIN
[2023-11-27 10:35] LABS: BILIRUBIN,TOTAL 0.6 MG/DL (0.1-1.0)
[2023-11-27] MEDS: HYDROchlorothiazide 12.5mg capsule PO SCH (11:29)
[2023-11-27 18:00] VITALS: BP 146/79; PULSE 87; RESP 16; TEMP 98.3; O2SAT 96
[2023-11-27 20:00] VITALS: RESP 16; O2SAT 96
[2023-11-27 22:00] VITALS: BP 141/85; PULSE 82; RESP 16; TEMP 98.1; O2SAT 94
[2023-11-28 06:32] VITALS: BP 146/87; PULSE 73; RESP 16; TEMP 97.7; O2SAT 93
[2023-11-28] MEDS: lisinopril 20mg tablet PO SCH (07:13)
[2023-11-28 10:00] VITALS: BP 149/91; PULSE 76; RESP 18; TEMP 97.9; O2SAT 93
[2023-11-28 18:00] VITALS: BP 140/71; PULSE 81; RESP 20; TEMP 98.1; O2SAT 93
[2023-11-28 20:00] VITALS: RESP 20; O2SAT 92
[2023-11-28 22:00] VITALS: BP 150/72; PULSE 76; RESP 16; TEMP 97.8; O2SAT 92
[2023-11-29 06:22] VITALS: BP 125/75; PULSE 75; RESP 15; TEMP 98.7; O2SAT 91
[2023-11-29] MEDS: acetaminophen 325mg tablet PO PRN (13:22)
[2023-11-29 18:00] VITALS: BP 160/96; PULSE 73; RESP 18; TEMP 98; O2SAT 97
[2023-11-29 22:00] VITALS: BP 154/74; PULSE 86; RESP 18; TEMP 97.5; O2SAT 94
[2023-11-30 06:00] VITALS: BP 139/82; PULSE 68; RESP 16; TEMP 97.8; O2SAT 96
[2023-11-30 08:17] VITALS: RESP 16; O2SAT 96
[2023-11-30 10:00] VITALS: BP 142/75; PULSE 73; RESP 17; TEMP 97.5; O2SAT 97
[2023-11-30 13:21] VITALS: RESP 16; O2SAT 94
[2023-11-30 18:00] VITALS: BP 140/62; PULSE 75; RESP 16; TEMP 97.5; O2SAT 97
[2023-11-30 19:09] VITALS: RESP 16; O2SAT 97
[2023-12-01 06:24] VITALS: BP 150/81; PULSE 84; RESP 18; TEMP 97.6; O2SAT 94
[2023-12-01 08:00] VITALS: RESP 18; O2SAT 94
[2023-12-01] MEDS ORDERED: HYDROchlorothiazide tablet PO (10:36)
[2023-12-01] MEDS ORDERED: ASPI-1071 PO (10:36)
[2023-12-01 22:00] VITALS: BP 140/77; PULSE 80; RESP 19; TEMP 97.8; O2SAT 96
[2023-12-02 06:00] VITALS: BP 131/85; PULSE 80; RESP 16; TEMP 97.8; O2SAT 96
[2023-12-02 07:31] VITALS: RESP 16
[2023-12-02 10:00] VITALS: BP 154/77; PULSE 70; RESP 18; TEMP 98.6; O2SAT 95
== END 2023-12-02 11:50 | disposition home or self-care (01) | DRG 241 ==
LOC: ER 13:23 → ED HOLD 23:37 → EDBEDREQ 23:54 → ORTHO 4S 11-16 00:24
PROVIDERS: ADMIT Internal Medicine Critical Care Medicine; ATTEND Internal Medicine
DX: K29.70 Gastritis, unspecified, without bleeding (principal); N12 Tubulo-interstitial nephritis, not specified as acute or chronic; E66.01 Morbid (severe) obesity due to excess calories; N20.0 Calculus of kidney; B96.1 Klebsiella pneumoniae [K. pneumoniae] as the cause of diseases classified elsewhere; I10 Essential (primary) hypertension; I25.10 Atherosclerotic heart disease of native coronary artery without angina pectoris; Z16.24 Resistance to multiple antibiotics; F32.A Depression, unspecified; F41.9 Anxiety disorder, unspecified; Z68.43 Body mass index [BMI] 50.0-59.9, adult; Z56.0 Unemployment, unspecified; Z88.6 Allergy status to analgesic agent; Z79.1 Long term (current) use of non-steroidal anti-inflammatories (NSAID); Z88.1 Allergy status to other antibiotic agents; Z88.2 Allergy status to sulfonamides; Z88.8 Allergy status to other drugs, medicaments and biological substances; Z90.710 Acquired absence of both cervix and uterus; Z86.73 Personal history of transient ischemic attack (TIA), and cerebral infarction without residual deficits; Z85.72 Personal history of non-Hodgkin lymphomas; Z87.442 Personal history of urinary calculi; Z87.440 Personal history of urinary (tract) infections; Z63.5 Disruption of family by separation and divorce; Z79.82 Long term (current) use of aspirin; Z86.711 Personal history of pulmonary embolism
CPT/HCPCS: 36415; 74176; 80053; 81001; 83690; 83735; 84100; 84145; 84484; 85025; 85651; 87081; 87088; 93005; 93306; 93971; 96361; 96374; 97110; 97116; 97161; 97530; 99285; A6258; A6446; A6449; C1751; C1758; G0378; J1644; J2185; J2270; J2405; J7030; J7040

== ENCOUNTER 2023-12-04 20:59 | Emergency (ER) | payer MEDICAID ==
[~2023-12-04] VITALS: Ht 165.1 cm; Wt 160.0 kg
[~2023-12-04 20:59] MED LIST changes: +ASPI-1071 PO; -CEPH-585 PO; +HYDROchlorothiazide tablet PO; -PERM60CR19 TOP
[2023-12-04 21:06] VITALS: TEMP 98.2
[2023-12-04] MEDS ORDERED: CETI1TAB PO (21:51)
[2023-12-04] MEDS ORDERED: FLUT16SP2 BOTHNARES (21:51)
[2023-12-04 21:59] VITALS: BP 178/85; PULSE 82; RESP 18; O2SAT 98
== END 2023-12-04 22:01 | disposition home or self-care (01) ==
LOC: ER 21:01
DX: H69.82 Other specified disorders of Eustachian tube, left ear (principal); R07.0 Pain in throat; I25.10 Atherosclerotic heart disease of native coronary artery without angina pectoris; Z87.442 Personal history of urinary calculi; Z87.440 Personal history of urinary (tract) infections; Z86.73 Personal history of transient ischemic attack (TIA), and cerebral infarction without residual deficits; Z98.891 History of uterine scar from previous surgery; Z90.49 Acquired absence of other specified parts of digestive tract; Z90.710 Acquired absence of both cervix and uterus; Z56.0 Unemployment, unspecified; Z95.5 Presence of coronary angioplasty implant and graft; Z88.8 Allergy status to other drugs, medicaments and biological substances; Z79.899 Other long term (current) drug therapy; Z79.2 Long term (current) use of antibiotics
CPT/HCPCS: 99284

== ENCOUNTER 2024-02-12 10:39 | Emergency (ER) | payer MEDICAID ==
[~2024-02-12] VITALS: Ht 167.6 cm; Wt 167.3 kg
[~2024-02-12 10:39] MED LIST changes: +CETI1TAB PO; +FLUT16SP2 BOTHNARES
[2024-02-12 10:54] VITALS: TEMP 98
[2024-02-12 11:32] LABS: BASOPHILS # (AUTO) 0.1 X10'3 (0-0.2); BASOPHILS % (AUTO) 0.8 % (0-1); EOSINOPHILS # (AUTO) 0.2 X10'3 (0-0.9); EOSINOPHILS % (AUTO) 2.8 % (0-6); HEMATOCRIT 44.3 % (35.0-45.0); HEMOGLOBIN 14.8 g/dl (12.0-16.0); LYMPHOCYTES # (AUTO) 1.8 X10'3 (1.1-4.8); LYMPHOCYTES % (AUTO) 25.4 % (21-51); MEAN CORPUSCULAR HEMOGLOBIN 31.8 PG (27.0-31.0); MEAN CORPUSCULAR HGB CONC 33.5 g/dL (33.0-36.5); MEAN PLATELET VOLUME 8.6 FL (7.4-10.4); MONOCYTES # (AUTO) 0.4 X10'3 (0-0.9); MONOCYTES % (AUTO) 6.3 % (2-12); NEUTROPHILS # (AUTO) 4.6 X10'3 (1.8-7.7); NEUTROPHILS % (AUTO) 64.7 % (42-75); PLATELET COUNT 253 X10'3 (140-440); RED BLOOD COUNT 4.66 X10'6 (4.20-5.60); RED CELL DISTRIBUTION WIDTH 14.2 % (11.5-14.5); WHITE BLOOD COUNT 7.1 X10'3 (4.5-11.0)
[2024-02-12 11:53] LABS: ALANINE AMINOTRANSFERASE 63 U/L (12-78); ALBUMIN 3.4 G/DL (3.4-5.0); ALBUMIN/GLOBULIN RATIO 0.7 (1.1-1.5); ALKALINE PHOSPHATASE 127 IU/L (46-116); ANION GAP 9 (8-16); ASPARTATE AMINO TRANSFERASE 56 U/L (10-37); BILIRUBIN,TOTAL 0.6 MG/DL (0.1-1.0); BLOOD UREA NITROGEN 9 MG/DL (7-18); BUN/CREATININE RATIO 10.8 (10.0-20.0); CALCIUM 9.4 MG/DL (8.5-10.1); CHLORIDE 102 MMOL/L (99-107); CREATININE 0.83 MG/DL (0.40-0.90); GLUCOSE 113 MG/DL (70-104); SODIUM 136 MMOL/L (135-145); TOTAL CARBON DIOXIDE 24.8 MMOL/L (24-32); TOTAL PROTEIN 8.5 G/DL (6.4-8.2); eCRCL 68 ML/MIN; eGFR 70 ML/MIN
[2024-02-12 12:01] LABS: PRO BRAIN NATRIURETIC PEPTIDE 60 PG/ML (0-125)
[2024-02-12 12:45] VITALS: BP 166/93; PULSE 77; O2SAT 96
[2024-02-12 13:37] VITALS: RESP 18
== END 2024-02-12 15:16 | disposition home or self-care (01) ==
LOC: ER 10:40
DX: R07.9 Chest pain, unspecified (principal); I25.10 Atherosclerotic heart disease of native coronary artery without angina pectoris; F41.9 Anxiety disorder, unspecified; F32.A Depression, unspecified; Z86.711 Personal history of pulmonary embolism; Z87.442 Personal history of urinary calculi; Z90.49 Acquired absence of other specified parts of digestive tract; Z90.710 Acquired absence of both cervix and uterus; Z98.890 Other specified postprocedural states; Z56.0 Unemployment, unspecified; Z88.1 Allergy status to other antibiotic agents; Z88.8 Allergy status to other drugs, medicaments and biological substances; Z79.82 Long term (current) use of aspirin; Z79.899 Other long term (current) drug therapy; Z86.73 Personal history of transient ischemic attack (TIA), and cerebral infarction without residual deficits
CPT/HCPCS: 36415; 71045; 80053; 83880; 84484; 85025; 93005; 99285

== ENCOUNTER 2024-07-15 06:50 | Emergency (ER) | payer MEDICAID ==
[~2024-07-15] VITALS: Ht 167.6 cm; Wt 190.0 kg
[2024-07-15] MEDS ORDERED: iohexol 350MG/ML 100ml bottle IV ONE (07:36)
[2024-07-15 07:52] LABS: BASOPHILS # (AUTO) 0.1 X10'3 (0-0.2); EOSINOPHILS # (AUTO) 0.2 X10'3 (0-0.9); EOSINOPHILS % (AUTO) 2.4 % (0-6); HEMATOCRIT 42.7 % (35.0-45.0); HEMOGLOBIN 14.1 g/dl (12.0-16.0); LYMPHOCYTES # (AUTO) 2.3 X10'3 (1.1-4.8); LYMPHOCYTES % (AUTO) 24.3 % (21-51); MEAN CORPUSCULAR HEMOGLOBIN 31.7 PG (27.0-31.0); MEAN CORPUSCULAR HGB CONC 33.1 g/dL (33.0-36.5); MEAN CORPUSCULAR VOLUME 95.8 FL (78-98); MONOCYTES # (AUTO) 0.7 X10'3 (0-0.9); MONOCYTES % (AUTO) 6.9 % (2-12); NEUTROPHILS # (AUTO) 6.2 X10'3 (1.8-7.7); NEUTROPHILS % (AUTO) 65.4 % (42-75); PLATELET COUNT 246 X10'3 (140-440); RED BLOOD COUNT 4.46 X10'6 (4.20-5.60); RED CELL DISTRIBUTION WIDTH 13.9 % (11.5-14.5); WHITE BLOOD COUNT 9.4 X10'3 (4.5-11.0)
[2024-07-15 08:00] LABS: D-DIMER 0.84 MG/L FEU (0-0.50)
[2024-07-15 08:11] LABS: ANION GAP 9 (8-16); BLOOD UREA NITROGEN 14 MG/DL (7-18); BUN/CREATININE RATIO 16.3 (10.0-20.0); CALCIUM 8.3 MG/DL (8.5-10.1); CHLORIDE 104 MMOL/L (99-107); CREATININE 0.86 MG/DL (0.40-0.90); GLUCOSE 159 MG/DL (70-104); MAGNESIUM 1.9 MG/DL (1.5-2.4); POTASSIUM 3.6 MMOL/L (3.5-5.1); PRO BRAIN NATRIURETIC PEPTIDE 39 PG/ML (0-125); SODIUM 140 MMOL/L (135-145); eCRCL 65 ML/MIN; eGFR 67 ML/MIN
[2024-07-15] MEDS: enoxaparin 100mg/ml syringe SUBCUT ONE (08:59)
[2024-07-15] MEDS ORDERED: APIX5TAB3 PO (09:46)
[2024-07-15 10:02] VITALS: BP 154/74; PULSE 74; RESP 16; TEMP 98.1; O2SAT 97
== END 2024-07-15 10:03 | disposition home or self-care (01) ==
LOC: ER 06:51
DX: I82.442 Acute embolism and thrombosis of left tibial vein (principal); R07.89 Other chest pain; I25.10 Atherosclerotic heart disease of native coronary artery without angina pectoris; F41.9 Anxiety disorder, unspecified; F32.A Depression, unspecified; Z86.73 Personal history of transient ischemic attack (TIA), and cerebral infarction without residual deficits; Z86.711 Personal history of pulmonary embolism; Z87.442 Personal history of urinary calculi; Z90.49 Acquired absence of other specified parts of digestive tract; Z90.710 Acquired absence of both cervix and uterus; Z56.0 Unemployment, unspecified; Z98.890 Other specified postprocedural states; Z88.1 Allergy status to other antibiotic agents; Z88.6 Allergy status to analgesic agent; Z88.8 Allergy status to other drugs, medicaments and biological substances; Z79.82 Long term (current) use of aspirin; Z79.52 Long term (current) use of systemic steroids
CPT/HCPCS: 36415; 71045; 71275; 80048; 83735; 83880; 84484; 85025; 85379; 93005; 93971; 96372; 99285; J1650; Q9967

== ENCOUNTER 2025-07-26 23:56 | Emergency (ER) | payer MEDICAID ==
[~2025-07-26 23:56] MED LIST changes: +APIX5TAB3 PO
== END 2025-07-27 05:30 | disposition left against medical advice (07) ==
LOC: ER 23:56
DX: N32.9 Bladder disorder, unspecified (principal); Z53.21 Procedure and treatment not carried out due to patient leaving prior to being seen by health care provider